=== PATIENT | female | born 1950 | race Caucasian/White ===

== ENCOUNTER 2016-08-18 20:04 | Emergency (ER) | payer MEDICARE, OTHER ==
[~2016-08-18] VITALS: Ht 162.6 cm; Wt 108.4 kg
[2016-08-18] MEDS ORDERED: ACEB200C PO (20:23)
[2016-08-18] MEDS ORDERED: INSU100V8 SQ (20:23)
[2016-08-18] MEDS ORDERED: DESV50TA PO (20:23)
[2016-08-18] MEDS ORDERED: FLUT1DIS3 IH (20:23)
[2016-08-18] MEDS ORDERED: LOSA100T6 PO (20:23)
[2016-08-18] MEDS ORDERED: SITA100T PO (20:23)
[2016-08-18] MEDS ORDERED: TRAM50TA PO (20:23)
[2016-08-18] MEDS ORDERED: ASPI-484 PO (20:23)
[2016-08-18] MEDS ORDERED: CYCL10TA2 PO (20:23)
[2016-08-18] MEDS ORDERED: LEVO88TA5 PO (20:23)
[2016-08-18] MEDS ORDERED: OMEP40CA6 PO (20:23)
[2016-08-18] MEDS ORDERED: GLIM4TAB2 PO (20:23)
[2016-08-18] MEDS ORDERED: TORADOL ONE (20:33)
[2016-08-18] MEDS ORDERED: TORADOL IM STA (20:34)
--- NOTE | 2016-08-18 20:41 | ER.PDOC ---
General Chief Complaint: Extremities Stated Complaint: KNEE PAIN Time seen by MD: 20:34 Source: patient Exam Limitations: no limitations History of Present Illness Initial Comments Left knee pain for 2 Months worse today. Patient had a normal X rays a few days ago at her PCP. She also had a negative venous Doppler in [place]. Severity: moderate Exacerbated By: walking movement Relieved By: rest Allergies: Coded Allergies: codeine (Verified Allergy, Unknown, 08/18/16) iodine (Verified Allergy, Unknown, 08/18/16) shellfish derived (Verified Allergy, Unknown, 08/18/16) Home Meds Reported Medications Insulin Glargine,Hum.rec.anlog (Lantus)100 Unit/1 Ml Vial30 Unit SQ A PRN HYPERGLYCEMIA 08/18/16 Fluticasone/Salmeterol (Advair 250-50 Diskus)1 Each Disk.w.dev1 Puff IH BID #3 INHALER Ref 3 08/18/16 Sitagliptin Phosphate (Januvia)100 Mg Tablet1 Tab PO DAILY #30 TAB Ref 5 08/18/16 Desvenlafaxine Succinate (Pristiq Er)50 Mg Tab.er.24h1 Tab PO DAILY #30 TAB Ref 5 08/18/16 Levothyroxine Sodium 88 Mcg Tablet1 Tab PO DAILY #30 TAB Ref 5 08/18/16 Aspirin (Aspir 81)81 Mg Tablet.dr1 Tab PO DAILY #30 TAB Ref 5 08/18/16 Tramadol Hcl 50 Mg Verikn02 Mg PO PRN PRN PAIN 08/18/16 Cyclobenzaprine Hcl (Flexeril)10 Mg Tablet1 Tab PO Q8 PRN MUSCLE SPASM #90 TAB 08/18/16 Glimepiride 4 Mg Tablet1 Tab PO BID #180 TAB Ref 1 08/18/16 Losartan Potassium 100 Mg Tablet1 Tab PO DAILY #30 TAB Ref 5 08/18/16 Acebutolol Hcl 200 Mg Kurjbye724 Mg PO BID 08/18/16 Omeprazole 40 Mg Capsule.dr1 Cap PO DAILY #30 CAP Ref 3 08/18/16 Past Medical History Medical History: cardiac problems, diabetes, high cholesterol, hypertension, thyroid disease Surgical History: appendectomy, hysterectomy, shoulder LMP (females 10-50): hysterectomy Social History Smoking: non-smoker Alcohol Use: none Drug Use: none Review of Systems Constitutional: no symptoms reported Respiratory: no symptoms reported Cardiovascular: no symptoms reported Gastrointestinal: no symptoms reported Genitourinary: no symptoms reported Musculoskeletal: see HPI All Other Systems: Reviewed and Negative Physical Exam General Appearance: Alert, No Apparent Distress Lower Extremity: nml inspection, no pedal edema, tenderness (left knee. No swelling, deformity or erytherma) Joint Exam: joints nml Vascular: no vascular compromise, pulses full/equal Neuro/Psych: sensation nml, motor nml, oriented x3, CN's nml as tested, mood/ affect nml Skin: color nml, warm/dry, no rash Back/Neck: nml inspection EENT: eyes inspection nml, ENT inspection nml, pharynx nml Respiratory: no resp distress, breath sounds nml CVS: reg rate & rhythm, heart sounds nml Abdomen: non-tender, no organomegaly, no bruit/mass Consult/PCP Time Consult/PCP Called: 20:41 Consult/PCP: Dr. Link Reason/Comments: Left knee pain, F/U tomorrow in office Departure Time of Disposition: 20:42 Disposition: 01 HOME, SELF-CARE Impression: Primary Impression: Knee pain, left Qualified Code: M25.562 - Pain in left knee Condition: Stable Referrals: EDDIE TALLEY PA-C (PCP) PRIMARY CARE PROVIDER Additional Instructions: Continue home medications F/U with Dr. Link tomorrow at 2pm MARIO CANTOR MD Aug 18, 2016 20:41
[2016-08-18 20:54] VITALS: BP 142/89
== END 2016-08-18 20:50 | disposition home or self-care (01) ==
LOC: ER 20:04
DX: M25.562 Pain in left knee (principal); E07.9 Disorder of thyroid, unspecified; E11.9 Type 2 diabetes mellitus without complications; E78.00 Pure hypercholesterolemia, unspecified; I10 Essential (primary) hypertension; Z79.4 Long term (current) use of insulin; Z79.82 Long term (current) use of aspirin; Z88.5 Allergy status to narcotic agent; Z91.013 Allergy to seafood; Z91.048 Other nonmedicinal substance allergy status; Z79.899 Other long term (current) drug therapy
CPT/HCPCS: 96372; 99283; J1885

== ENCOUNTER 2016-09-10 01:11 | Day surgery (SDC) | payer MEDICARE, OTHER ==
[2016-09-09 14:45] VITALS: BP 129/51
[2016-09-09 15:52] LABS: BASOPHIL % 0.3 % (0.0-0.2); EOSINOPHIL # 0.5 10^3/uL (0.0-0.2); EOSINOPHIL % 4.3 % (0.0-5.0); HEMATOCRIT 39.3 % (36.0-46.0); LYMPHOCYTES # 3.7 10^3/uL (1.0-4.8); MEAN CELL HGB CONCENTRATION 33.1 g/dL (33-37); MEAN CORP VOLUME 90.6 fL (78-100); MEAN PLATELET VOLUME 10.1 fL (7.8-11.0); MONOCYTES # 0.9 10^3/uL (0.3-0.8); MONOCYTES % 7.1 % (5.0-12.0); NEUTROPHIL # 7.1 10^3/uL (1.8-7.7); RED CELL DISTRIBUTION WIDTH 13.5 % (11.5-14.5); WHITE BLOOD CELL 12.3 10^3/uL (4.5-11.0)
[2016-09-09 16:06] LABS: CALCIUM 9.3 mg/dL (8.4-10.5); CARBON DIOXIDE 23.8 mmol/L (20.0-32)
[~2016-09-10] VITALS: Ht 165.1 cm; Wt 110.2 kg
[2016-09-10] VITALS (13 sets, daily range): BP systolic 123–151; BP diastolic 60–82
[~2016-09-10 01:11] MED LIST: ACEB200C PO; ASPI-484 PO; CYAN10002 IJ; CYCL10TA2 PO; DESV50TA PO; FENO150C PO; FLUT1DIS3 IH; GLIM4TAB2 PO; INSU100I13 SQ; INSU100V8 SQ; LEVO88TA5 PO; LOSA100T6 PO; LOSA50TA6 PO; OMEG-117 PO; OMEP40CA6 PO; SITA100T PO; TRAM50TA PO
[2016-09-10] MEDS ORDERED: LACTATED RINGERS 1,000 ML ONE (05:27)
[2016-09-10] MEDS ORDERED: NS IV SCH (06:00)
[2016-09-10] MEDS ORDERED: ROBINUL ONE (06:58)
[2016-09-10] MEDS ORDERED: VERSED ONE (06:58)
[2016-09-10] MEDS ORDERED: XYLOCAINE ONE (06:58)
[2016-09-10] MEDS ORDERED: SUBLIMAZE ONE ×2 (06:59→09:22)
[2016-09-10] MEDS ORDERED: DIPRIVAN IV ONE (06:59)
[2016-09-10] MEDS ORDERED: TORADOL ONE (06:59)
[2016-09-10] MEDS ORDERED: ZOFRAN ONE (07:00)
[2016-09-10] MEDS ORDERED: SENSORCAINE-EPI 0.25%-0.0005 ONE (07:05)
[2016-09-10] MEDS ORDERED: SODIUM CHLORIDE IR ONE ×2 (07:05)
[2016-09-10] MEDS ORDERED: NS 1000ML 1,000 ML ONE (08:53)
[2016-09-10] MEDS ORDERED: TRAM-28 PO (09:20)
[2016-09-10] MEDS ORDERED: SUBLIMAZE IV STA (09:24)
[2016-09-10] MEDS ORDERED: ULTRAM PO ONE ×2 (09:45→10:00)
[2016-09-10] MEDS ORDERED: ULTRAM ONE (09:48)
--- NOTE | 2016-09-10 13:32 | OPH ---
DATE OF SURGERY: 09/10/2016 PREOPERATIVE DIAGNOSIS: Medial meniscal tear of the left knee. POSTOPERATIVE DIAGNOSES: 1. Medial and lateral meniscal tears of the left knee. 2. Plica syndrome, left knee. OPERATIVE PROCEDURES: 1. Arthroscopy of the left knee with partial medial and lateral meniscectomy. 2. Partial synovectomy, left knee. SURGEON: Salvador Link MD ANESTHESIA: LMA. TOURNIQUET TIME: 19 minutes at 300 mmHg. DRAINS: None. BLOOD LOSS: 20 mL. DESCRIPTION OF INDICATIONS: The patient is a 66-year-old female that has had a 3-month history of pain and popping about the left knee. She has a lot of pain with weightbearing, mainly medially. She has to use a walker because of the pain. The patient has taken Advil as well as Aleve and Tylenol for the pain without relief. She had a cortisone injection, which did not relieve her symptoms. The patient's exam showed that the left knee had full range of motion. She had a lot of tenderness about the posterior medial aspect of her joint line. The patient did have some popping and pain with Bee and Artur maneuver. The plain x-rays were negative. The MRI scan showed a tear of the posterior horn of the medial meniscus. She was given conservative versus surgical options and she wanted to proceed with arthroscopy and meniscectomy due to the degree of pain. DESCRIPTION OF PROCEDURE: The patient was placed on the operating table in the supine position. A general endotracheal anesthetic was induced without difficulty. The left thigh was well padded and a tourniquet was applied. The left lower extremity was then sterilely prepped and draped. The patient then had the arthroscopy portals made superolateral, anterolateral and anteromedial. The arthroscope was placed in the suprapatellar pouch. She had some minor grade 2 chondromalacia about the patella and the corresponding femoral sulcus. There was no exposed subchondral bone. She had a fairly significant plica noted about the anteromedial portion. Later in the case, a shaver was introduced and the plica was resected. The patient also had a partial synovectomy done in the suprapatellar pouch for fairly significant inflammatory synovitis. The medial and lateral gutters were viewed. The lateral gutter was normal. There were no loose bodies, no osteophytes. There were minimal small osteophytes about the distal end of the medial femoral condyle. The patient then had the medial compartment entered. There was some grade 3 chondromalacia about the medial femoral condyle that was shaved of any loose articular cartilage. The medial meniscus had a radial and complex tear of the posterior horn. Using upbiters and a shaver, a partial medial meniscectomy was performed. The intercondylar notch was viewed. Her anterior and posterior cruciate ligaments were normal. The knee was then placed in the [id number] position. The lateral compartment was viewed. The lateral articular cartilage was normal. Her lateral meniscus had some tears in the central portion that were excised with an upbiter and a shaver. The arthroscopic equipment was then removed from the knee. The tourniquet was released. The patient had the portal tracts closed with 3-0 Ethilon in an interrupted manner. A compressive dressing was applied. The patient was extubated in the operating room and sent to recovery in stable condition. Salvador Link MD DR: WILFRID/nikolai JOB# [id number]
== END 2016-09-10 10:39 | disposition home or self-care (01) | DRG 563 ==
LOC: SDC 01:11
PROVIDERS: ATTEND Orthopaedic Surgery
DX: S83.242A Other tear of medial meniscus, current injury, left knee, initial encounter (principal); M67.52 Plica syndrome, left knee; E11.9 Type 2 diabetes mellitus without complications; E78.00 Pure hypercholesterolemia, unspecified; X58.XXXA Exposure to other specified factors, initial encounter; Y93.89 Activity, other specified; Y92.89 Other specified places as the place of occurrence of the external cause; Y99.8 Other external cause status; Z79.4 Long term (current) use of insulin; Z79.82 Long term (current) use of aspirin
CPT/HCPCS: 29875; 29880; 36415; 80048; 82948; 85025; 93005; J1885; J2250; J2405; J3010 ×2; J3490 ×2; J7030 ×2; J7120

== ENCOUNTER → 2017-05-05 | Outpatient (CLI) | payer MEDICARE, OTHER ==
[~2017-05-05] MED LIST changes: +TRAM-47 PO
== END | disposition home or self-care (01) ==
LOC: CT 10:28
PROVIDERS: ATTEND Orthopaedic Surgery
DX: M17.12 Unilateral primary osteoarthritis, left knee (principal)
CPT/HCPCS: 73700

== ENCOUNTER 2017-05-31 08:00 | Inpatient (IN) | payer MEDICARE, OTHER ==
[2017-05-26 11:41] VITALS: BP 135/66
[~2017-05-31] VITALS: Ht 162.6 cm; Wt 114.4 kg
[~2017-05-31 08:00] MED LIST changes: +ATOR40TA PO; +CLOB15CR TP; +FEXO180T72 PO; +INSU100C SQ; +LOSA1TAB22 PO; +NS 1000ML 1,000 ML IV SCH
[2017-07-12] VITALS (22 sets, daily range): BP systolic 122–148; BP diastolic 58–83
[2017-07-12] MEDS ORDERED: NS 250ML 250 ML IV ONE ×2 (05:47→13:36)
[2017-07-12] MEDS ORDERED: VANCOMYCIN HCL 2 GM ONE (05:47)
[2017-07-12] MEDS ORDERED: NEURONTIN PO SCH (06:00)
[2017-07-12] MEDS ORDERED: TYLENOL PO ONE ×2 (06:00→10:58)
[2017-07-12] MEDS ORDERED: CELEBREX PO ONE ×2 (06:00→21:00)
[2017-07-12] MEDS ORDERED: TRANEXAMIC ACID IV ONE (07:00)
[2017-07-12] MEDS: LACTATED RINGERS 1,000 ML IV SCH (10:50)
[2017-07-12] MEDS ORDERED: CELEBREX ONE (10:57)
[2017-07-12] MEDS ORDERED: NEURONTIN ONE (10:58)
[2017-07-12] MEDS ORDERED: VANCOMYCIN IV ONE (11:00)
[2017-07-12] MEDS ORDERED: NS IV ONE (11:00)
[2017-07-12] MEDS ORDERED: BACTROBAN NASAL NS ONE (11:00)
[2017-07-12] MEDS ORDERED: DECADRON ONE (11:39)
[2017-07-12] MEDS ORDERED: TORADOL ONE (11:39)
[2017-07-12] MEDS ORDERED: ZEMURON IV ONE (11:39)
[2017-07-12] MEDS ORDERED: ZOFRAN ONE (11:39)
[2017-07-12] MEDS ORDERED: VERSED ONE (11:39)
[2017-07-12] MEDS ORDERED: NEOSTIGMINE ONE (11:39)
[2017-07-12] MEDS ORDERED: SUBLIMAZE ONE ×2 (11:40→16:49)
[2017-07-12] MEDS ORDERED: SENSORCAINE-MPF 0.5% VIAL ONE (11:40)
[2017-07-12] MEDS ORDERED: DIPRIVAN IV ONE (11:40)
[2017-07-12] MEDS ORDERED: SENSORCAINE-MPF 0.25% VIAL ONE (11:41)
[2017-07-12] MEDS ORDERED: LIDOCAINE 2% VIAL ONE (11:41)
[2017-07-12] MEDS ORDERED: QUELICIN ONE (13:04)
[2017-07-12] MEDS: TYLENOL PO SCH (13:30)
[2017-07-12] MEDS ORDERED: NS 3000ML IRR IR ONE (13:36)
[2017-07-12] MEDS ORDERED: NS 100ML 100 ML IV ONE (13:36)
[2017-07-12] MEDS ORDERED: SODIUM CHLORIDE IR ONE (13:36)
[2017-07-12] MEDS: SUBLIMAZE IV PRN ×5 (16:53→17:17)
[2017-07-12] MEDS ORDERED: BACTROBAN NASAL NS PRN (17:00)
[2017-07-12] MEDS ORDERED: LACTATED RINGERS 1,000 ML IV SCH (17:00)
[2017-07-12] MEDS ORDERED: VENTOLIN IH PRN (17:00)
[2017-07-12] MEDS ORDERED: CEPACOL SORE THROAT LOZENGE MM PRN (17:00)
[2017-07-12] MEDS ORDERED: PHENERGAN IV PRN (17:00)
[2017-07-12] MEDS ORDERED: BENADRYL IV PRN (17:00)
[2017-07-12] MEDS ORDERED: ZOFRAN IV PRN (17:00)
[2017-07-12] MEDS ORDERED: LACTATED RINGERS 2,000 ML ONE (17:10)
--- NOTE | 2017-07-12 17:16 | PRM.PN ---
Subjective Subjective Date: Jul 12, 2017 Time: 17:15 Subjective In RR Awake and alert VSS NVM+ Stable Patient History: Alzheimer's disease 32 MOTHER, , Age:83 Chronic obstructive pulmonary disease G8 SISTER, , Age:69 Congestive heart failure 32 MOTHER, , Age:83 G8 SISTER, , Age:69 G8 SISTER, , Age:50 Diabetes mellitus 32 MOTHER, , Age:83 G8 BROTHER G8 BROTHER, , Age:65 G8 SISTER, , Age:69 G8 SISTER, , Age:50 FH: breast cancer 32 MOTHER, , Age:83 FH: seizures 19 CHILD Heart valve insufficiency G8 BROTHER Hypertension 32 MOTHER, , Age:83 G8 BROTHER G8 BROTHER, , Age:65 G8 SISTER, , Age:69 G8 SISTER, , Age:50 Kidney stone 19 CHILD No known health problems 33 FATHER, , Age:36 19 CHILD Parkinson's disease 32 MOTHER, , Age:83 VTE VTE Risk Total Score: >5 VTE Risk Score VTE Risk: Score 0-1 = Low Risk (Aggressive mobilization; early ambulation; no VTE prophylaxis required) Score 2: Moderate Risk (Intermittent/Pneumatic Compression Device OR Lovenox/Heparin/Coumadin) Score 3-4: High Risk (Intermittent/Pneumatic Compression Device AND Lovenox/Heparin/Coumadin) Score > or =5: Highest Risk (Intermittent/Pneumatic Compression Device AND Lovenox/Heparin/Coumadin) Review of Systems Allergies: Coded Allergies: shellfish derived (Verified Allergy, Severe, ELEVATED BP, HYPERVENTALATION , 05/26/17) codeine (Verified Allergy, Unknown, ITCHING, 05/26/17) Scheduled Acebutolol Hcl (Acebutolol Hcl), 200 MG PO BID, (Reported) Aspirin (Aspir 81), 1 TAB PO DAILY, (Reported) Atorvastatin 40MG (Lipitor 40MG), 1 TAB PO DAILY, (Reported) Cyanocobalamin (Vitamin B-12) (Cyanocobalamin Injection), 1,000 MCG IJ EVERY 14 DAYS, (Reported) Desvenlafaxine Succinate (Pristiq Er), 1 TAB PO DAILY, (Reported) Fenofibrate (Lipofen), 150 MG PO HS, (Reported) Fluticasone/Salmeterol (Advair 250-50 Diskus), 1 PUFF IH BID, (Reported) Glimepiride (Glimepiride), 1 TAB PO BID, (Reported) Insulin Glargine,Hum.rec.anlog (Lantus), 40 UNIT SQ ACB, (Reported) Insulin Glargine,Hum.rec.anlog (Lantus Solostar), 45 UNITS SQ HS, (Reported) Insulin Lispro (Humalog), 5 UNIT SQ TIDM, (Reported) Insulin Lispro (Humalog), Unknown Dose SQ TIDM, (Reported) Levothyroxine Sodium (Levothyroxine Sodium), 1 TAB PO DAILY, (Reported) Losartan/Hydrochlorothiazide (Losartan-Hctz 100-25 Mg Tab), 1 TAB PO DAILY, ( Reported) Foster-3S/Dha/Epa/Fish Oil (Fish Oil 1,200 mg Softgel), 2 EACH PO BID, (Reported) Omeprazole (Omeprazole), 1 CAP PO BID, (Reported) Scheduled PRN Clobetasol Propionate (Clobetasol Propionate), 1 APPLIC TP BID PRN for ITCHING, (Reported) Fexofenadine Hcl (Martita Allergy), 1 TAB PO DAILY PRN for ALLERGIES, (Reported) Objective Vitals and I/O Vital Sign - Last 24 Hours 07/12/17 07/12/17 07/12/17 07/12/17 10:43 10:43 12:30 12:35 Temp 98.0 Pulse 74 72 70 Resp 20 20 20 B/P (MAP) 148/78 (101) 141/60 (87) 134/80 (98) Pulse Ox 94 94 93 O2 Delivery Room Air Room Air Room Air Room Air 07/12/17 07/12/17 07/12/17 07/12/17 12:40 12:45 12:50 16:25 Pulse 73 70 70 Resp 20 20 20 B/P (MAP) 144/83 (103) 138/78 (98) 125/67 (86) Pulse Ox 95 92 91 O2 Delivery Room Air Room Air Room Air O2 Flow Rate 15 07/12/17 07/12/17 07/12/17 07/12/17 16:25 16:30 16:35 16:40 Temp 98.1 98.3 Pulse 84 83 85 85 Resp 19 19 19 19 B/P (MAP) 136/79 (98) 134/79 (97) 126/76 (93) 130/75 (93) Pulse Ox 97 93 94 97 O2 Delivery Venturi Mask Venturi Mask Venturi Mask Venturi Mask 07/12/17 07/12/17 07/12/17 07/12/17 16:45 16:50 16:55 17:00 Temp 97.5 Pulse 87 90 86 85 Resp 19 19 19 19 B/P (MAP) 136/77 (96) 129/69 (89) 137/58 (84) 129/73 (91) Pulse Ox 97 99 99 99 O2 Delivery Venturi Mask Venturi Mask Venturi Mask Venturi Mask 07/12/17 07/12/17 17:05 17:10 Temp 97.5 Pulse 90 92 Resp 19 19 B/P (MAP) 134/66 (88) 131/58 (82) Pulse Ox 99 99 O2 Delivery Venturi Mask Venturi Mask Medication Reconciliation Scheduled Acebutolol Hcl (Acebutolol Hcl), 200 MG PO BID, (Reported) Aspirin (Aspir 81), 1 TAB PO DAILY, (Reported) Atorvastatin 40MG (Lipitor 40MG), 1 TAB PO DAILY, (Reported) Cyanocobalamin (Vitamin B-12) (Cyanocobalamin Injection), 1,000 MCG IJ EVERY 14 DAYS, (Reported) Desvenlafaxine Succinate (Pristiq Er), 1 TAB PO DAILY, (Reported) Fenofibrate (Lipofen), 150 MG PO HS, (Reported) Fluticasone/Salmeterol (Advair 250-50 Diskus), 1 PUFF IH BID, (Reported) Glimepiride (Glimepiride), 1 TAB PO BID, (Reported) Insulin Glargine,Hum.rec.anlog (Lantus), 40 UNIT SQ ACB, (Reported) Insulin Glargine,Hum.rec.anlog (Lantus Solostar), 45 UNITS SQ HS, (Reported) Insulin Lispro (Humalog), 5 UNIT SQ TIDM, (Reported) Insulin Lispro (Humalog), Unknown Dose SQ TIDM, (Reported) Levothyroxine Sodium (Levothyroxine Sodium), 1 TAB PO DAILY, (Reported) Losartan/Hydrochlorothiazide (Losartan-Hctz 100-25 Mg Tab), 1 TAB PO DAILY, ( Reported) Foster-3S/Dha/Epa/Fish Oil (Fish Oil 1,200 mg Softgel), 2 EACH PO BID, (Reported) Omeprazole (Omeprazole), 1 CAP PO BID, (Reported) Scheduled PRN Clobetasol Propionate (Clobetasol Propionate), 1 APPLIC TP BID PRN for ITCHING, (Reported) Fexofenadine Hcl (Martita Allergy), 1 TAB PO DAILY PRN for ALLERGIES, (Reported) Course Blood Pressure Systolic: 131 Blood Pressure Diastolic: 58 Blood Pressure Mean: 82 Assessment/Plan Assessment/Plan Patient History: Alzheimer's disease 32 MOTHER, , Age:83 Chronic obstructive pulmonary disease G8 SISTER, , Age:69 Congestive heart failure 32 MOTHER, , Age:83 G8 SISTER, , Age:69 G8 SISTER, , Age:50 Diabetes mellitus 32 MOTHER, , Age:83 G8 BROTHER G8 BROTHER, , Age:65 G8 SISTER, , Age:69 G8 SISTER, , Age:50 FH: breast cancer 32 MOTHER, , Age:83 FH: seizures 19 CHILD Heart valve insufficiency G8 BROTHER Hypertension 32 MOTHER, , Age:83 G8 BROTHER G8 BROTHER, , Age:65 G8 SISTER, , Age:69 G8 SISTER, , Age:50 Kidney stone 19 CHILD No known health problems 33 FATHER, , Age:36 19 CHILD Parkinson's disease 32 MOTHER, , Age:83 IBAN BANEGAS MD Jul 12, 2017 17:16
--- NOTE | 2017-07-12 17:40 | NUR ---
ARRIVAL PT ARRIVED FROM OR VIA BED WITH OR STAFF, RECEIVED REPORT FROM ALEKSANDR HODGE AND ASSUMED CARE OF PT. SPECIAL VITALS STARTED BED IN LOW POSITION, WHEELS LOCKED, CALL LIGHT IN REACH. ORIENTED PT TO ROOM CALL LIGHT AND BATHROOM. WILL CONTINUE TO MONITOR
[2017-07-12] MEDS: MORPHINE SULFATE IV PRN (18:13)
--- NOTE | 2017-07-12 18:28 | HPH ---
ADMIT DATE: 07/12/2017 CHIEF COMPLAINT: Painful left knee. HISTORY OF PRESENT ILLNESS: The patient is a 67-year-old female with a 1-year history of pain about the left knee secondary to osteoarthritis. Her pain is getting progressively worse. The patient complained of night pain as well as pain with just household ambulation. She is unable to do her daily activities because of pain. She has had a trial of anti-inflammatories including Motrin as well as Aleve. She takes tramadol for the pain now. She has also had several cortisone injections as well as a round of Orthovisc injections, neither of which helped her significantly. She complains of giving way about the knee as well as medial-sided knee pain. She had arthroscopy in 08/2016 with debridement of the medial femoral condyle as well as the patellofemoral joint. At that time, she was noted to have diffuse loss of articular cartilage about the medial compartment as well as the patellofemoral compartment. PAST MEDICAL HISTORY: Medical problems include hypertension, diabetes, sleep apnea, rheumatoid arthritis, gout, GERD, obesity, shortness of breath. PREVIOUS SURGICAL PROCEDURES: Include left knee arthroscopy, hysterectomy, cataract removal, rotator cuff repair, cholecystectomy and appendectomy. MEDICATIONS: Includes Lantus, Humalog, omeprazole, acebutolol, glimepiride, aspirin, losartan and tramadol. ALLERGIES: THE PATIENT IS ALLERGIC TO CODEINE WELL SHELLFISH. SOCIAL HISTORY: She lives with her family, does not smoke or drink. FAMILY HISTORY: Positive for hypertension, congestive heart failure, cancer as well as myocardial infarction. REVIEW OF SYSTEMS: Negative for chest pain, nausea, vomiting, melena, hematochezia, dysuria, hematuria, fever, chills or weight loss. Positive for occasional shortness of breath on exertion. PHYSICAL EXAMINATION: GENERAL: Reveals a 5 feet 4 inches, 251 pounds female in no acute distress. HEENT: Within normal limits. CHEST: Clear to auscultation. HEART: Regular rate and rhythm without murmur. ABDOMEN: Soft and nontender, good bowel sounds. EXTREMITIES: The patient's left knee has a 1+ effusion. She has full extension with 120 degrees of flexion. There is good medial and lateral stability. Tone and posterior drawer exams are normal. The patient has normal internal and external rotation of the left hip with no pain. NEUROLOGIC: She is awake and alert. She is oriented x 3. Cranial nerves 2-12 are grossly intact. She has 5/5 strength in all muscle groups of her upper extremities as well as both of her lower extremities, normal for her age, bilaterally symmetric. IMAGING STUDIES: The x-rays show that she has medial compartment narrowing as well as patellofemoral narrowing. ASSESSMENT: 1. Osteoarthritis, left knee. 2. Rheumatoid arthritis, left knee. PLAN: The patient is being admitted for left total knee arthroplasty. The risks and hazards of the procedure have been discussed with the patient. She understands the risk involved and wants to proceed as planned. Salvador Link MD DR: WILFRID/nikolai JOB# [id number]
--- NOTE | 2017-07-12 19:11 | NUR ---
REPORT REPORT GIVEN TO O/C SHIFT
[2017-07-12 19:52] LABS: HEMOGLOBIN 11.8 g/dL (12.0-15.0); MEAN CELL HGB 29.3 pg (26-34); MEAN CELL HGB CONCENTRATION 31.1 g/dL (33-37); MEAN PLATELET VOLUME 9.6 fL (7.8-11.0); RED CELL DISTRIBUTION WIDTH 13.8 % (11.5-14.5)
--- NOTE | 2017-07-12 19:59 | DIREP ---
PROCEDURE:XRAY KNEE 1-2 VWS-LT COMPARISON:None. INDICATIONS:Postop FINDINGS: BONES:No fracture is seen. JOINTS:Post surgical changes are seen with a total left knee arthroplasty in good position and alignment. SOFT TISSUES:Post surgical changes are seen in the anterior soft tissues. OTHER:No additional findings. CONCLUSION:Post surgical changes are seen with a total left knee arthroplasty in good position. Dictated by: José Macias M.D. on 07/12/2017 at 07:57 PM
[2017-07-12] MEDS: ULTRAM PO SCH (20:00)
[2017-07-12] MEDS: ULTRAM PO PRN (20:51)
[2017-07-12] MEDS: BACTROBAN NASAL NS SCH (20:52)
[2017-07-12] MEDS ORDERED: VANCOMYCIN HCL IV SCH (21:00)
--- NOTE | 2017-07-12 21:48 | OPH ---
DATE OF SURGERY: 07/12/2017 PREOPERATIVE DIAGNOSIS: Osteoarthritis as well as rheumatoid arthritis of the left knee. POSTOPERATIVE DIAGNOSIS: Osteoarthritis as well as rheumatoid arthritis of the left knee. OPERATIVE PROCEDURE: Left total knee arthroplasty using Medacta Sphere knee, size 3 femur, a size 3 tibia, a 10 mm insert. All components were cemented. SURGEON: Salvador Link MD ANESTHESIA: LMA. TOURNIQUET TIME: 73 minutes at 300 mmHg. DRAINS: None. DESCRIPTION OF INDICATIONS: The patient is a 67-year-old female who has a long history of pain about the left knee. We have been seeing her for at least a year in our office. She has had a trial of home physical therapy as well as some bracing. She has GERD and is very limited in her ability to take anti-inflammatories. She has had several cortisone injections with only temporary relief. She has also had a round of Orthovisc injections without much relief. She has pain with just household ambulation as well as night pain. She also complained of giving way about the knee. The patient had previous arthroscopy in August 2016, where she underwent debridement of the knee. It did not help her in the long run. The patient's x-rays show medial narrowing as well as patellofemoral narrowing with osteophytes. Because of pain that limited her daily activities, the patient was brought to the operating room for left total knee arthroplasty. DESCRIPTION OF PROCEDURE: This patient was placed on the operating table in the supine position. LMA anesthetic was induced without difficulty. The patient had the well-padded tourniquet placed around the left thigh. Left lower extremity was then sterilely prepped and draped. The patient had the leg exsanguinated with an Esmarch and the tourniquet was inflated to 300 mmHg. The leg was then flexed to 90 degrees. Anterior incision was made about the knee. Incision was taken through the skin and the subcutaneous tissues. The patient had medial and lateral meniscectomies performed. The anterior and posterior cruciate ligaments were excised. The patient then had the capsule and MCL released around the posterior medial corner. The patient then had the Rerecipe femoral cutting guide placed about the distal femur. It was held into position with multiple pins. The distal femoral cut was then made with the power saw. The patient had the #2 jig size 3, placed about the distal femur and held into position with multiple screws and multiple pins. The anterior and posterior femoral cuts as well as the chamfer cuts were then made. The patient had the tibia subluxed anteriorly with a bent knee retractor. The tibial cutting guide was put into position and held there with multiple pins. Tibial cut was then made with the power saw. The patient had the size 3 trial placed on the tibial component. The patient had the trial component held into position with multiple pins. The central drill hole was made and then the cruciate punch was used to stabilize the tibial component. The patient then had the trial reduction done with a 3 tibia, 3 femur, a 10 mm insert. The knee went out into full extension. She had 120 degrees of flexion, excellent medial and lateral stability throughout the range of motion. There was excellent tracking of the patella, so we elected just to trim the osteophytes around the peripheral edge of the patella and to cauterize circumferentially around the outside edge of the patella. The patient then had the final medial and lateral femoral drill holes made. The femoral sulcus cut was made. The trial components were then removed from the knee. The bone ends were copiously irrigated and then the bone ends were dried. A size 3 tibial component was cemented into position. The excess cement was removed with curettes. The 10 mm insert was then impacted into position and secured with an anterior screw. The size 3 femoral component was likewise cemented into position. Once all the excess cement was removed and the cement had dried, then, the tourniquet was released. The bleeding was controlled with the Aquamantys device. The capsule was closed with a #2 PDS in interrupted nefscl-ua-[id number] manner. The joint was injected with a gram of tranexamic acid and 90 mL of saline. The subcutaneous was then closed with a barbed 2-0 Monocryl in a running manner. The skin was closed with srinivasan. A large Aquacel dressing was applied. It was reinforced with 4 x 4s, ABD pads, cast padding and an Peter wrap. The patient was extubated in the operating room, sent to recovery in stable condition. Salvador Link MD DR: WILFRID/nikolai JOB# [id number]
[2017-07-13] MEDS ORDERED: VANCOMYCIN HCL 2 GM ONE (00:06)
[2017-07-13] MEDS ORDERED: NS 500ML 500 ML IV ONE (00:07)
[2017-07-13] MEDS: VANCOMYCIN HCL 2 GM in NS 500ML 500 ML IV SCH ×2 (00:12→11:10)
[2017-07-13] MEDS: TYLENOL PO SCH ×5 (00:13→20:36)
[2017-07-13] MEDS: ULTRAM PO PRN ×6 (00:13→20:36)
[2017-07-13 00:16] VITALS: BP 133/78
[2017-07-13] MEDS: ULTRAM PO SCH ×6 (04:00→20:00)
[2017-07-13 04:30] VITALS: BP 113/60
[2017-07-13 05:08] LABS: HEMOGLOBIN 11.7 g/dL (12.0-15.0); MEAN CELL HGB 29.2 pg (26-34); MEAN CELL HGB CONCENTRATION 31.3 g/dL (33-37); MEAN CORP VOLUME 93.3 fL (78-100); MEAN PLATELET VOLUME 9.7 fL (7.8-11.0); RED CELL DISTRIBUTION WIDTH 13.4 % (11.5-14.5); WHITE BLOOD CELL 16.4 10^3/uL (4.5-11.0)
--- NOTE | 2017-07-13 07:00 | NUR ---
REPORT RECEIVED REPORT, ASSUMED CARE OF PT
[2017-07-13 07:13] VITALS: BP 131/72
[2017-07-13] MEDS: XARELTO PO SCH (08:43)
[2017-07-13] MEDS: PEPCID PO SCH (08:44)
[2017-07-13] MEDS: COLACE PO SCH (08:44)
[2017-07-13] MEDS ORDERED: DEXTROSE 50%-WATER SYRINGE IV PRN (09:30)
--- NOTE | 2017-07-13 09:40 | NUR ---
Post-op day 1 follow up post left femoral and iPACK block. Pt v/s stable. Pt has been up walking with PT. PT states pt has some mild residual quad weakness which they anticipate will darnell within a couple hours. Pt block site is [facility]. Pt states block began to wear off around 0330 this am. block lasted approx 15 hours. Pt states no questions or concerns.
[2017-07-13] MEDS: LANTUS SQ SCH (09:42)
[2017-07-13] MEDS: HUMALOG SQ PRN ×3 (09:44→17:14)
[2017-07-13] MEDS: LIPITOR PO SCH (09:46)
[2017-07-13] MEDS: BACTROBAN NASAL NS SCH ×2 (09:47→20:37)
[2017-07-13] MEDS: SYNTHROID PO SCH (09:47)
[2017-07-13] MEDS ORDERED: PROTONIX PO ONE (10:06)
[2017-07-13] MEDS: PROTONIX PO SCH (10:12)
--- NOTE | 2017-07-13 10:15 | NUR ---
DISCHARGE PLAN CM VISITED WITH PT REGARDING DISCHARGE PLAN AND NEED. LIVES AT HOME WITH . INDEPENDENT. HAS WALKER. PT REQUESTED BEDSIDE COMMODE AND SHOWER CHAIR. ORDER SENT TO [employer]. [facility] AND BEDSIDE COMMODE TOMORROW. PT AWARE OF COST. PT STATED, "I WILL JUST HAVE MY LEAVE ME A BLANK CHECK." PT REQUESTED PHYSICAL THERAPY TO BE DONE AT [facility]. HAIR REYES PT STATED, "I WILL FILL OUT AN ORDER AND TAKE IT TO MED/SURG FOR DR. BANEGAS TO SIGN. THEN I WILL CALL YOU BACK WITH A TIME AND DATE OF FIRST APPOINTMENT." DISCHARGE GOAL IS TO DISCHARGE HOME WITH WITH PHYSICAL THERAPY TO BE DONE AT [facility] AND TO USE PT'S OWN WALKER. WILL CONTINUE TO FOLLOW DISCHARGE NEEDS.
[2017-07-13] MEDS: LACTATED RINGERS 1,000 ML IV SCH (11:00)
--- NOTE | 2017-07-13 11:16 | PRM.PN ---
Subjective Subjective Date: Jul 13, 2017 Time: 11:15 Subjective Awake and alert Pain ok thru the night VSS HGB 11.8 postop anemia expected NVM+ Start PT Patient History: Alzheimer's disease 32 MOTHER, , Age:83 Chronic obstructive pulmonary disease G8 SISTER, , Age:69 Congestive heart failure 32 MOTHER, , Age:83 G8 SISTER, , Age:69 G8 SISTER, , Age:50 Diabetes mellitus 32 MOTHER, , Age:83 G8 BROTHER G8 BROTHER, , Age:65 G8 SISTER, , Age:69 G8 SISTER, , Age:50 FH: breast cancer 32 MOTHER, , Age:83 FH: seizures 19 CHILD Heart valve insufficiency G8 BROTHER Hypertension 32 MOTHER, , Age:83 G8 BROTHER G8 BROTHER, , Age:65 G8 SISTER, , Age:69 G8 SISTER, , Age:50 Kidney stone 19 CHILD No known health problems 33 FATHER, , Age:36 19 CHILD Parkinson's disease 32 MOTHER, , Age:83 VTE VTE Risk Total Score: >5 VTE Risk Score VTE Risk: Score 0-1 = Low Risk (Aggressive mobilization; early ambulation; no VTE prophylaxis required) Score 2: Moderate Risk (Intermittent/Pneumatic Compression Device OR Lovenox/Heparin/Coumadin) Score 3-4: High Risk (Intermittent/Pneumatic Compression Device AND Lovenox/Heparin/Coumadin) Score > or =5: Highest Risk (Intermittent/Pneumatic Compression Device AND Lovenox/Heparin/Coumadin) Review of Systems Allergies: Coded Allergies: shellfish derived (Verified Allergy, Severe, ELEVATED BP, HYPERVENTALATION , 05/26/17) codeine (Verified Allergy, Unknown, ITCHING, 05/26/17) Scheduled Acebutolol Hcl (Acebutolol Hcl), 200 MG PO BID, (Reported) Aspirin (Aspir 81), 1 TAB PO DAILY, (Reported) Atorvastatin 40MG (Lipitor 40MG), 1 TAB PO DAILY, (Reported) Cyanocobalamin (Vitamin B-12) (Cyanocobalamin Injection), 1,000 MCG IJ EVERY 14 DAYS, (Reported) Desvenlafaxine Succinate (Pristiq Er), 1 TAB PO DAILY, (Reported) Fenofibrate (Lipofen), 150 MG PO HS, (Reported) Fluticasone/Salmeterol (Advair 250-50 Diskus), 1 PUFF IH BID, (Reported) Glimepiride (Glimepiride), 1 TAB PO BID, (Reported) Insulin Glargine,Hum.rec.anlog (Lantus), 40 UNIT SQ ACB, (Reported) Insulin Glargine,Hum.rec.anlog (Lantus Solostar), 45 UNITS SQ HS, (Reported) Insulin Lispro (Humalog), 5 UNIT SQ TIDM, (Reported) Insulin Lispro (Humalog), Unknown Dose SQ TIDM, (Reported) Levothyroxine Sodium (Levothyroxine Sodium), 1 TAB PO DAILY, (Reported) Losartan/Hydrochlorothiazide (Losartan-Hctz 100-25 Mg Tab), 1 TAB PO DAILY, ( Reported) [place]-3S/Dha/Epa/Fish Oil (Fish Oil 1,200 mg Softgel), 2 EACH PO BID, (Reported) Omeprazole (Omeprazole), 1 CAP PO BID, (Reported) Scheduled PRN Clobetasol Propionate (Clobetasol Propionate), 1 APPLIC TP BID PRN for ITCHING, (Reported) Fexofenadine Hcl (Martita Allergy), 1 TAB PO DAILY PRN for ALLERGIES, (Reported) Objective Vitals and I/O Vital Sign - Last 24 Hours 07/12/17 07/12/17 07/12/17 07/12/17 12:30 12:35 12:40 12:45 Pulse 72 70 73 70 Resp 20 20 20 20 B/P (MAP) 141/60 (87) 134/80 (98) 144/83 (103) 138/78 (98) Pulse Ox 94 93 95 92 O2 Delivery Room Air Room Air Room Air Room Air 07/12/17 07/12/17 07/12/17 07/12/17 12:50 16:25 16:25 16:30 Temp 98.1 Pulse 70 84 83 Resp 20 19 19 B/P (MAP) 125/67 (86) 136/79 (98) 134/79 (97) Pulse Ox 91 97 93 O2 Delivery Room Air Venturi Mask Venturi Mask O2 Flow Rate 15 07/12/17 07/12/17 07/12/17 07/12/17 16:35 16:40 16:45 16:50 Temp 98.3 Pulse 85 85 87 90 Resp 19 19 19 B/P (MAP) 126/76 (93) 130/75 (93) 136/77 (96) 129/69 (89) Pulse Ox 94 97 97 99 O2 Delivery Venturi Mask Venturi Mask Venturi Mask Venturi Mask 07/12/17 07/12/17 07/12/17 07/12/17 16:55 17:00 17:05 17:10 Temp 97.5 97.5 Pulse 86 85 90 92 Resp 19 B/P (MAP) 137/58 (84) 129/73 (91) 134/66 (88) 131/58 (82) Pulse Ox 99 99 99 99 O2 Delivery Venturi Mask Venturi Mask Venturi Mask Venturi Mask 07/12/17 07/12/17 07/12/17 07/12/17 17:15 17:20 17:25 17:30 Pulse 91 84 90 89 Resp 19 B/P (MAP) 140/76 (97) 127/63 (84) 127/74 (91) 122/76 (91) Pulse Ox 95 96 91 91 O2 Delivery Venturi Mask Venturi Mask Venturi Mask Nasal Cannula 07/12/17 07/12/17 07/12/17 07/12/17 17:40 18:19 18:21 18:24 Temp 97.6 Pulse 89 92 Resp 18 18 B/P (MAP) 122/67 (85) Pulse Ox 92 96 96 O2 Delivery Nasal Cannula Nasal Cannula Nasal Cannula O2 Flow Rate 2.00 3.00 FiO2 32 07/12/17 07/12/17 07/12/17 07/13/17 19:43 21:15 21:21 00:16 Temp 97.9 97.7 Pulse 95 95 89 Resp 18 18 B/P (MAP) 145/74 (97) 133/78 (96) Pulse Ox 95 95 93 O2 Delivery Nasal Canula Nasal Cannula Nasal Canula O2 Flow Rate 2.00 3.00 07/13/17 07/13/17 07/13/17 04:30 07:13 10:31 Temp 97.9 98.5 Pulse 95 90 90 Resp 18 18 B/P (MAP) 113/60 (77) 131/72 (91) Pulse Ox 95 95 95 O2 Delivery Nasal Canula Nasal Canula Room Air Intake and Output 3/12/18 3/12/18 3/13/18 15:00 23:00 07:00 Intake Total 100 ml 6350 ml 1000 ml Output Total 150 ml 2200 ml Balance 100 ml 6200 ml -1200 ml Medication Reconciliation Scheduled Acebutolol Hcl (Acebutolol Hcl), 200 MG PO BID, (Reported) Aspirin (Aspir 81), 1 TAB PO DAILY, (Reported) Atorvastatin 40MG (Lipitor 40MG), 1 TAB PO DAILY, (Reported) Cyanocobalamin (Vitamin B-12) (Cyanocobalamin Injection), 1,000 MCG IJ EVERY 14 DAYS, (Reported) Desvenlafaxine Succinate (Pristiq Er), 1 TAB PO DAILY, (Reported) Fenofibrate (Lipofen), 150 MG PO HS, (Reported) Fluticasone/Salmeterol (Advair 250-50 Diskus), 1 PUFF IH BID, (Reported) Glimepiride (Glimepiride), 1 TAB PO BID, (Reported) Insulin Glargine,Hum.rec.anlog (Lantus), 40 UNIT SQ ACB, (Reported) Insulin Glargine,Hum.rec.anlog (Lantus Solostar), 45 UNITS SQ HS, (Reported) Insulin Lispro (Humalog), 5 UNIT SQ TIDM, (Reported) Insulin Lispro (Humalog), Unknown Dose SQ TIDM, (Reported) Levothyroxine Sodium (Levothyroxine Sodium), 1 TAB PO DAILY, (Reported) Losartan/Hydrochlorothiazide (Losartan-Hctz 100-25 Mg Tab), 1 TAB PO DAILY, ( Reported) [place]-3S/Dha/Epa/Fish Oil (Fish Oil 1,200 mg Softgel), 2 EACH PO BID, (Reported) Omeprazole (Omeprazole), 1 CAP PO BID, (Reported) Scheduled PRN Clobetasol Propionate (Clobetasol Propionate), 1 APPLIC TP BID PRN for ITCHING, (Reported) Fexofenadine Hcl (Martita Allergy), 1 TAB PO DAILY PRN for ALLERGIES, (Reported) Course Blood Pressure Systolic: 131 Blood Pressure Diastolic: 72 Blood Pressure Mean: 91 Assessment/Plan Assessment/Plan Patient History: Alzheimer's disease 32 MOTHER, , Age:83 Chronic obstructive pulmonary disease G8 SISTER, , Age:69 Congestive heart failure 32 MOTHER, , Age:83 G8 SISTER, , Age:69 G8 SISTER, , Age:50 Diabetes mellitus 32 MOTHER, , Age:83 G8 BROTHER G8 BROTHER, , Age:65 G8 SISTER, , Age:69 G8 SISTER, , Age:50 FH: breast cancer 32 MOTHER, , Age:83 FH: seizures 19 CHILD Heart valve insufficiency G8 BROTHER Hypertension 32 MOTHER, , Age:83 G8 BROTHER G8 BROTHER, , Age:65 G8 SISTER, , Age:69 G8 SISTER, , Age:50 Kidney stone 19 CHILD No known health problems 33 FATHER, , Age:36 19 CHILD Parkinson's disease 32 MOTHER, , Age:83 IBAN BANEGAS MD Jul 13, 2017 11:16
[2017-07-13 11:34] VITALS: BP 125/72
--- NOTE | 2017-07-13 13:25 | NUR ---
AMBULATING PT UP AMBULATING IN [place] ASSISTED BY PHYSICAL THERAPY, NO S/S OF DISTRESS NOTED AT THIS TIME.
[2017-07-13] MEDS ORDERED: NEURONTIN PO SCH (13:30)
[2017-07-13] MEDS ORDERED: ZOFRAN ONE (14:17)
[2017-07-13] MEDS ORDERED: ZOFRAN IV PRN (14:30)
[2017-07-13 17:07] VITALS: BP 130/56
[2017-07-13 19:00] VITALS: BP 125/74
[2017-07-13] MEDS: TRIGLIDE PO SCH (21:00)
[2017-07-13] MEDS: VALIUM PO PRN (22:41)
[2017-07-14 00:16] VITALS: BP 138/66
[2017-07-14] MEDS: ULTRAM PO PRN ×3 (00:45→06:26)
[2017-07-14] MEDS: TYLENOL PO SCH ×4 (02:09→22:08)
[2017-07-14] MEDS: MORPHINE SULFATE IV PRN (02:30)
[2017-07-14] MEDS: ULTRAM PO SCH ×2 (04:00)
[2017-07-14 04:26] VITALS: BP 133/75
[2017-07-14 05:29] LABS: BASOPHIL % 0.2 % (0.0-0.2); EOSINOPHIL # 0.2 10^3/uL (0.0-0.2); EOSINOPHIL % 1.8 % (0.0-5.0); HEMOGLOBIN 10.9 g/dL (12.0-15.0); LYMPHOCYTES # 3.2 10^3/uL (1.0-4.8); LYMPHOCYTES % 28.8 % (24.0-44.0); MEAN CELL HGB 29.4 pg (26-34); MEAN CELL HGB CONCENTRATION 30.8 g/dL (33-37); MEAN CORP VOLUME 95.4 fL (78-100); MEAN PLATELET VOLUME 9.7 fL (7.8-11.0); MONOCYTES # 1.1 10^3/uL (0.3-0.8); MONOCYTES % 10.1 % (5.0-12.0); NEUTROPHIL # 6.6 10^3/uL (1.8-7.7); NEUTROPHILS % 58.4 % (41.0-85.0); RED CELL DISTRIBUTION WIDTH 13.9 % (11.5-14.5); WHITE BLOOD CELL 11.2 10^3/uL (4.5-11.0)
--- NOTE | 2017-07-14 06:30 | NUR ---
dc'd jolly catheter, removed 9cc of water from bulb, and removed tubing without difficulty, pt tolerated well. pt d/t void passed on to 0630 shift
[2017-07-14 07:18] VITALS: BP 130/82
[2017-07-14] MEDS: HUMALOG SQ PRN ×4 (07:40→22:09)
--- NOTE | 2017-07-14 08:49 | PRM.PN ---
Subjective Subjective Date: Jul 14, 2017 Time: 08:48 Subjective Nauseated thru the night Afebrile VSS HGB 10.9 DC jolly [facility] pain meds Patient History: Alzheimer's disease 32 MOTHER, , Age:83 Chronic obstructive pulmonary disease G8 SISTER, , Age:69 Congestive heart failure 32 MOTHER, , Age:83 G8 SISTER, , Age:69 G8 SISTER, , Age:50 Diabetes mellitus 32 MOTHER, , Age:83 G8 BROTHER G8 BROTHER, , Age:65 G8 SISTER, , Age:69 G8 SISTER, , Age:50 FH: breast cancer 32 MOTHER, , Age:83 FH: seizures 19 CHILD Heart valve insufficiency G8 BROTHER Hypertension 32 MOTHER, , Age:83 G8 BROTHER G8 BROTHER, , Age:65 G8 SISTER, , Age:69 G8 SISTER, , Age:50 Kidney stone 19 CHILD No known health problems 33 FATHER, , Age:36 19 CHILD Parkinson's disease 32 MOTHER, , Age:83 VTE VTE Risk Total Score: >5 VTE Risk Score VTE Risk: Score 0-1 = Low Risk (Aggressive mobilization; early ambulation; no VTE prophylaxis required) Score 2: Moderate Risk (Intermittent/Pneumatic Compression Device OR Lovenox/Heparin/Coumadin) Score 3-4: High Risk (Intermittent/Pneumatic Compression Device AND Lovenox/Heparin/Coumadin) Score > or =5: Highest Risk (Intermittent/Pneumatic Compression Device AND Lovenox/Heparin/Coumadin) Review of Systems Allergies: Coded Allergies: shellfish derived (Verified Allergy, Severe, ELEVATED BP, HYPERVENTALATION , 05/26/17) codeine (Verified Allergy, Unknown, ITCHING, 05/26/17) Scheduled Acebutolol Hcl (Acebutolol Hcl), 200 MG PO BID, (Reported) Aspirin (Aspir 81), 1 TAB PO DAILY, (Reported) Atorvastatin 40MG (Lipitor 40MG), 1 TAB PO DAILY, (Reported) Cyanocobalamin (Vitamin B-12) (Cyanocobalamin Injection), 1,000 MCG IJ EVERY 14 DAYS, (Reported) Desvenlafaxine Succinate (Pristiq Er), 1 TAB PO DAILY, (Reported) Fenofibrate (Lipofen), 150 MG PO HS, (Reported) Fluticasone/Salmeterol (Advair 250-50 Diskus), 1 PUFF IH BID, (Reported) Glimepiride (Glimepiride), 1 TAB PO BID, (Reported) Insulin Glargine,Hum.rec.anlog (Lantus), 40 UNIT SQ ACB, (Reported) Insulin Glargine,Hum.rec.anlog (Lantus Solostar), 45 UNITS SQ HS, (Reported) Insulin Lispro (Humalog), 5 UNIT SQ TIDM, (Reported) Insulin Lispro (Humalog), Unknown Dose SQ TIDM, (Reported) Levothyroxine Sodium (Levothyroxine Sodium), 1 TAB PO DAILY, (Reported) Losartan/Hydrochlorothiazide (Losartan-Hctz 100-25 Mg Tab), 1 TAB PO DAILY, ( Reported) [place]-3S/Dha/Epa/Fish Oil (Fish Oil 1,200 mg Softgel), 2 EACH PO BID, (Reported) Omeprazole (Omeprazole), 1 CAP PO BID, (Reported) Scheduled PRN Clobetasol Propionate (Clobetasol Propionate), 1 APPLIC TP BID PRN for ITCHING, (Reported) Fexofenadine Hcl (Martita Allergy), 1 TAB PO DAILY PRN for ALLERGIES, (Reported) Objective Vitals and I/O Vital Sign - Last 24 Hours 07/13/17 07/13/17 07/13/17 07/13/17 10:31 11:34 17:07 17:55 Temp 97.6 97.6 Pulse 90 74 85 Resp 18 18 B/P (MAP) 125/72 (89) 130/56 (80) Pulse Ox 95 98 90 O2 Delivery Room Air Nasal Canula Room Air Room Air 07/13/17 07/13/17 07/13/17 07/14/17 19:00 19:55 21:55 00:16 Temp 98.6 98.4 Pulse 86 79 90 Resp 18 16 18 B/P (MAP) 125/74 (91) 138/66 (90) Pulse Ox 95 91 97 O2 Delivery Room Air Room Air Nasal Cannula Nasal Canula O2 Flow Rate 2.00 FiO2 28 07/14/17 07/14/17 07/14/17 04:26 07:18 07:27 Temp 98.5 98.3 Pulse 93 96 Resp 18 18 B/P (MAP) 133/75 (94) 130/82 (98) Pulse Ox 96 95 O2 Delivery Nasal Canula Nasal Canula Room Air Intake and Output 07/13/17 07/13/17 07/14/17 15:00 23:00 07:00 Intake Total 480 ml 3940 ml 400 ml Output Total 2100 ml 2500 ml Balance 480 ml 1840 ml -2100 ml Medication Reconciliation Scheduled Acebutolol Hcl (Acebutolol Hcl), 200 MG PO BID, (Reported) Aspirin (Aspir 81), 1 TAB PO DAILY, (Reported) Atorvastatin 40MG (Lipitor 40MG), 1 TAB PO DAILY, (Reported) Cyanocobalamin (Vitamin B-12) (Cyanocobalamin Injection), 1,000 MCG IJ EVERY 14 DAYS, (Reported) Desvenlafaxine Succinate (Pristiq Er), 1 TAB PO DAILY, (Reported) Fenofibrate (Lipofen), 150 MG PO HS, (Reported) Fluticasone/Salmeterol (Advair 250-50 Diskus), 1 PUFF IH BID, (Reported) Glimepiride (Glimepiride), 1 TAB PO BID, (Reported) Insulin Glargine,Hum.rec.anlog (Lantus), 40 UNIT SQ ACB, (Reported) Insulin Glargine,Hum.rec.anlog (Lantus Solostar), 45 UNITS SQ HS, (Reported) Insulin Lispro (Humalog), 5 UNIT SQ TIDM, (Reported) Insulin Lispro (Humalog), Unknown Dose SQ TIDM, (Reported) Levothyroxine Sodium (Levothyroxine Sodium), 1 TAB PO DAILY, (Reported) Losartan/Hydrochlorothiazide (Losartan-Hctz 100-25 Mg Tab), 1 TAB PO DAILY, ( Reported) [place]-3S/Dha/Epa/Fish Oil (Fish Oil 1,200 mg Softgel), 2 EACH PO BID, (Reported) Omeprazole (Omeprazole), 1 CAP PO BID, (Reported) Scheduled PRN Clobetasol Propionate (Clobetasol Propionate), 1 APPLIC TP BID PRN for ITCHING, (Reported) Fexofenadine Hcl (Martita Allergy), 1 TAB PO DAILY PRN for ALLERGIES, (Reported) Course Blood Pressure Systolic: 130 Blood Pressure Diastolic: 82 Blood Pressure Mean: 98 Assessment/Plan Assessment/Plan Patient History: Alzheimer's disease 32 MOTHER, , Age:83 Chronic obstructive pulmonary disease G8 SISTER, , Age:69 Congestive heart failure 32 MOTHER, , Age:83 G8 SISTER, , Age:69 G8 SISTER, , Age:50 Diabetes mellitus 32 MOTHER, , Age:83 G8 BROTHER G8 BROTHER, , Age:65 G8 SISTER, , Age:69 G8 SISTER, , Age:50 FH: breast cancer 32 MOTHER, , Age:83 FH: seizures 19 CHILD Heart valve insufficiency G8 BROTHER Hypertension 32 MOTHER, , Age:83 G8 BROTHER G8 BROTHER, , Age:65 G8 SISTER, , Age:69 G8 SISTER, , Age:50 Kidney stone 19 CHILD No known health problems 33 FATHER, , Age:36 19 CHILD Parkinson's disease 32 MOTHER, , Age:83 IBAN BANEGAS MD Jul 14, 2017 08:49
[2017-07-14] MEDS: COZAAR PO SCH (09:00)
[2017-07-14] MEDS: BACTROBAN NASAL NS SCH ×2 (09:00→21:00)
[2017-07-14] MEDS: PEPCID PO SCH (09:00)
[2017-07-14] MEDS: SYNTHROID PO SCH (09:00)
--- NOTE | 2017-07-14 09:30 | NUR ---
Pt VOIDED 225 CC OF YELLOW CLEAR URINE IN TOILET.
--- NOTE | 2017-07-14 09:35 | NUR ---
Pt WALKING IN THE HALLWAY WITH PT, ASSSISTED BYU GAIT BELT AND ROLLING WALKER, Pt TOLERATED WELL.
[2017-07-14] MEDS: XARELTO PO SCH (09:53)
[2017-07-14] MEDS: PROTONIX PO SCH (09:53)
[2017-07-14] MEDS: COLACE PO SCH (09:53)
[2017-07-14] MEDS: LIPITOR PO SCH (09:53)
[2017-07-14] MEDS: HYDROCHLOROTHIAZIDE PO SCH (09:53)
--- NOTE | 2017-07-14 11:41 | NUR ---
Pt ON CPM MACHINE.
[2017-07-14 11:50] VITALS: BP 156/79
[2017-07-14] MEDS: VALIUM PO PRN (12:12)
[2017-07-14] MEDS: MOTRIN PO PRN ×2 (12:12→20:00)
--- NOTE | 2017-07-14 13:00 | NUR ---
ARRIVAL ([id number]) Patient arrived to room 337 via wheelchair from the Outpatient office , DIRECT ADMIT. Patient oriented to room, use of call mary, TV, . Policies and procedures explained. Patient verbalized understanding. Patient alert, oriented to person, place, and time. Offered fluids/ drinks. Patient has an IV of 22 G TO LAC infusing at 100 ML/HR. Assessment performed. UNABLE TO STATE LAST BM DATE. Vital signs: BP 142/60 , P 86 , R 20 , T 97.4 on admission. Pt HAS BRUISES ON BOTH HANDS STATES HE " IS ON BLOOD THINNER". PROVIDED TOLLING WALKER, REENFORCED Pt TO USE CALL LIGHT IN NEED OF HELP OR IN NEED TO USE RESTROOM, CALL LIGHT WITHIN REACH, YELLOW SHOCKS APPLIED, FALL RISK BAND APPLIED. Addendum: 07/14/17 at 1412 by Chester Allen RN - MED/FREIGHT BOOKER WRONG Pt DOCUMENTATION.
--- NOTE | 2017-07-14 14:42 | NUR ---
REPORT REPORT RECEIVED FROM AYESHA TREVIÑO AND ASSUMED CARE OF PT
[2017-07-14 16:03] VITALS: BP 147/79
--- NOTE | 2017-07-14 18:40 | NUR ---
REPORT REPORT GIVEN TO ONCOMING SHIFT AND CARE RELINQUISHED
[2017-07-14 20:36] VITALS: BP 148/59
[2017-07-14] MEDS: TRIGLIDE PO SCH (21:00)
[2017-07-15] VITALS: BP 156/84
[2017-07-15] MEDS: TYLENOL PO SCH ×3 (01:30→12:05)
[2017-07-15 05:25] LABS: BASOPHIL % 0.1 % (0.0-0.2); EOSINOPHIL # 0.3 10^3/uL (0.0-0.2); EOSINOPHIL % 2.5 % (0.0-5.0); LYMPHOCYTES # 2.9 10^3/uL (1.0-4.8); LYMPHOCYTES % 24.3 % (24.0-44.0); MEAN CELL HGB 29.8 pg (26-34); MEAN CELL HGB CONCENTRATION 31.8 g/dL (33-37); MEAN CORP VOLUME 93.5 fL (78-100); MEAN PLATELET VOLUME 9.6 fL (7.8-11.0); MONOCYTES # 1.2 10^3/uL (0.3-0.8); MONOCYTES % 10.6 % (5.0-12.0); NEUTROPHIL # 7.3 10^3/uL (1.8-7.7); NEUTROPHILS % 62.1 % (41.0-85.0); RED CELL DISTRIBUTION WIDTH 13.7 % (11.5-14.5); WHITE BLOOD CELL 11.7 10^3/uL (4.5-11.0)
[2017-07-15 05:58] VITALS: BP 157/84
[2017-07-15] MEDS: BACTROBAN NASAL NS SCH (07:04)
[2017-07-15] MEDS: SYNTHROID PO SCH (07:09)
[2017-07-15] MEDS: LANTUS SQ SCH (07:15)
[2017-07-15 08:31] VITALS: BP 154/86
[2017-07-15] MEDS: COLACE PO SCH (09:07)
[2017-07-15] MEDS: PEPCID PO SCH (09:07)
[2017-07-15] MEDS: XARELTO PO SCH (09:07)
[2017-07-15] MEDS: PROTONIX PO SCH (09:07)
[2017-07-15] MEDS: LIPITOR PO SCH (09:08)
[2017-07-15] MEDS: HYDROCHLOROTHIAZIDE PO SCH (09:08)
[2017-07-15] MEDS: COZAAR PO SCH (09:08)
--- NOTE | 2017-07-15 09:18 | PRM.PN ---
Subjective Subjective Date: Jul 15, 2017 Time: 09:18 Subjective Doing well Ok with Trandfers and ambulation HGB 12 Wound ok Will dc Patient History: Alzheimer's disease 32 MOTHER, , Age:83 Chronic obstructive pulmonary disease G8 SISTER, , Age:69 Congestive heart failure 32 MOTHER, , Age:83 G8 SISTER, , Age:69 G8 SISTER, , Age:50 Diabetes mellitus 32 MOTHER, , Age:83 G8 BROTHER G8 BROTHER, , Age:65 G8 SISTER, , Age:69 G8 SISTER, , Age:50 FH: breast cancer 32 MOTHER, , Age:83 FH: seizures 19 CHILD Heart valve insufficiency G8 BROTHER Hypertension 32 MOTHER, , Age:83 G8 BROTHER G8 BROTHER, , Age:65 G8 SISTER, , Age:69 G8 SISTER, , Age:50 Kidney stone 19 CHILD No known health problems 33 FATHER, , Age:36 19 CHILD Parkinson's disease 32 MOTHER, , Age:83 VTE VTE Risk Total Score: >5 VTE Risk Score VTE Risk: Score 0-1 = Low Risk (Aggressive mobilization; early ambulation; no VTE prophylaxis required) Score 2: Moderate Risk (Intermittent/Pneumatic Compression Device OR Lovenox/Heparin/Coumadin) Score 3-4: High Risk (Intermittent/Pneumatic Compression Device AND Lovenox/Heparin/Coumadin) Score > or =5: Highest Risk (Intermittent/Pneumatic Compression Device AND Lovenox/Heparin/Coumadin) Review of Systems Allergies: Coded Allergies: shellfish derived (Verified Allergy, Severe, ELEVATED BP, HYPERVENTALATION , 05/26/17) codeine (Verified Allergy, Unknown, ITCHING, 05/26/17) Scheduled Acebutolol Hcl (Acebutolol Hcl), 200 MG PO BID, (Reported) Aspirin (Aspir 81), 1 TAB PO DAILY, (Reported) Atorvastatin 40MG (Lipitor 40MG), 1 TAB PO DAILY, (Reported) Cyanocobalamin (Vitamin B-12) (Cyanocobalamin Injection), 1,000 MCG IJ EVERY 14 DAYS, (Reported) Desvenlafaxine Succinate (Pristiq Er), 1 TAB PO DAILY, (Reported) Fenofibrate (Lipofen), 150 MG PO HS, (Reported) Fluticasone/Salmeterol (Advair 250-50 Diskus), 1 PUFF IH BID, (Reported) Glimepiride (Glimepiride), 1 TAB PO BID, (Reported) Insulin Glargine,Hum.rec.anlog (Lantus), 40 UNIT SQ ACB, (Reported) Insulin Glargine,Hum.rec.anlog (Lantus Solostar), 45 UNITS SQ HS, (Reported) Insulin Lispro (Humalog), 5 UNIT SQ TIDM, (Reported) Insulin Lispro (Humalog), Unknown Dose SQ TIDM, (Reported) Levothyroxine Sodium (Levothyroxine Sodium), 1 TAB PO DAILY, (Reported) Losartan/Hydrochlorothiazide (Losartan-Hctz 100-25 Mg Tab), 1 TAB PO DAILY, ( Reported) [place]-3S/Dha/Epa/Fish Oil (Fish Oil 1,200 mg Softgel), 2 EACH PO BID, (Reported) Omeprazole (Omeprazole), 1 CAP PO BID, (Reported) Scheduled PRN Clobetasol Propionate (Clobetasol Propionate), 1 APPLIC TP BID PRN for ITCHING, (Reported) Fexofenadine Hcl (Martita Allergy), 1 TAB PO DAILY PRN for ALLERGIES, (Reported) Objective Vitals and I/O Vital Sign - Last 24 Hours 07/14/17 07/14/17 07/14/17 07/14/17 09:53 10:43 11:50 16:03 Temp 98.4 98.6 Pulse 104 103 106 Resp 18 B/P (MAP) 130/82 156/79 (104) 147/79 (101) Pulse Ox 84 96 95 O2 Delivery Room Air Nasal Canula Nasal Canula 07/14/17 07/14/17 07/14/17 07/15/17 19:13 20:36 21:30 00:00 Temp 98.2 98.5 Pulse 101 109 110 Resp 18 B/P (MAP) 148/59 (88) 156/84 (108) Pulse Ox 98 93 95 O2 Delivery Nasal Cannula Room Air Room Air Nasal Canula O2 Flow Rate 2.00 FiO2 28 07/15/17 07/15/17 07/15/17 07/15/17 05:58 08:31 09:08 09:08 Temp 98.1 98.0 Pulse 101 99 Resp 18 18 B/P (MAP) 157/84 (108) 154/86 (108) 154/86 154/86 Pulse Ox 96 92 O2 Delivery Nasal Canula Room Air Intake and Output 07/14/17 07/14/17 07/15/17 15:00 23:00 07:00 Intake Total 480 ml 240 ml Output Total 500 ml Balance 480 ml -260 ml Medication Reconciliation Scheduled Acebutolol Hcl (Acebutolol Hcl), 200 MG PO BID, (Reported) Aspirin (Aspir 81), 1 TAB PO DAILY, (Reported) Atorvastatin 40MG (Lipitor 40MG), 1 TAB PO DAILY, (Reported) Cyanocobalamin (Vitamin B-12) (Cyanocobalamin Injection), 1,000 MCG IJ EVERY 14 DAYS, (Reported) Desvenlafaxine Succinate (Pristiq Er), 1 TAB PO DAILY, (Reported) Fenofibrate (Lipofen), 150 MG PO HS, (Reported) Fluticasone/Salmeterol (Advair 250-50 Diskus), 1 PUFF IH BID, (Reported) Glimepiride (Glimepiride), 1 TAB PO BID, (Reported) Insulin Glargine,Hum.rec.anlog (Lantus), 40 UNIT SQ ACB, (Reported) Insulin Glargine,Hum.rec.anlog (Lantus Solostar), 45 UNITS SQ HS, (Reported) Insulin Lispro (Humalog), 5 UNIT SQ TIDM, (Reported) Insulin Lispro (Humalog), Unknown Dose SQ TIDM, (Reported) Levothyroxine Sodium (Levothyroxine Sodium), 1 TAB PO DAILY, (Reported) Losartan/Hydrochlorothiazide (Losartan-Hctz 100-25 Mg Tab), 1 TAB PO DAILY, ( Reported) [place]-3S/Dha/Epa/Fish Oil (Fish Oil 1,200 mg Softgel), 2 EACH PO BID, (Reported) Omeprazole (Omeprazole), 1 CAP PO BID, (Reported) Scheduled PRN Clobetasol Propionate (Clobetasol Propionate), 1 APPLIC TP BID PRN for ITCHING, (Reported) Fexofenadine Hcl (Martita Allergy), 1 TAB PO DAILY PRN for ALLERGIES, (Reported) Course Blood Pressure Systolic: 154 Blood Pressure Diastolic: 86 Blood Pressure Mean: 108 Assessment/Plan Assessment/Plan Patient History: Alzheimer's disease 32 MOTHER, , Age:83 Chronic obstructive pulmonary disease G8 SISTER, , Age:69 Congestive heart failure 32 MOTHER, , Age:83 G8 SISTER, , Age:69 G8 SISTER, , Age:50 Diabetes mellitus 32 MOTHER, , Age:83 G8 BROTHER G8 BROTHER, , Age:65 G8 SISTER, , Age:69 G8 SISTER, , Age:50 FH: breast cancer 32 MOTHER, , Age:83 FH: seizures 19 CHILD Heart valve insufficiency G8 BROTHER Hypertension 32 MOTHER, , Age:83 G8 BROTHER G8 BROTHER, , Age:65 G8 SISTER, , Age:69 G8 SISTER, , Age:50 Kidney stone 19 CHILD No known health problems 33 FATHER, , Age:36 19 CHILD Parkinson's disease 32 MOTHER, , Age:83 IBAN BANEGAS MD Jul 15, 2017 09:18
[2017-07-15 11:38] VITALS: BP 142/79
[2017-07-15] MEDS: HUMALOG SQ PRN (12:08)
[2017-07-15 12:09] VITALS: BP 142/79
--- NOTE | 2017-07-15 12:12 | NUR ---
DISCHARGE JAMES NAVARRO APPLIED, PT DISCHARGED HOME WITH OP PHYSICAL THERAPY, NEW PRESCRIPTIONS, F/U APPOINTMENT, AND INSTRUCTIONS GIVEN. PT VERBALIZED UNDERSTANDING. PT LEFT VIA W/C TO PRIVATE AUTO WITH SPOUSE.
--- NOTE | 2017-07-15 20:27 | DSH ---
DATE OF DISCHARGE: 07/15/2017 ADMITTING DIAGNOSIS: Osteoarthritis of the left knee. OTHER DIAGNOSES: Include sleep apnea, GERD, gout, diabetes, coronary artery disease and obesity. DISCHARGE DIAGNOSES: Osteoarthritis of the left knee plus postoperative anemia, expected. OPERATIVE PROCEDURE DATE: 07/12/2017. PROCEDURE PERFORMED: Left total knee arthroplasty. CONSULTATIONS: Will be Dr. Martinez. COMPLICATIONS: None. SUMMARY OF ADMISSION: A 67-year-old female with severe OA about the left knee that was limiting her everyday activities. She failed conservative treatment and was taken to the operating room for left total knee arthroplasty for pain relief. The patient's procedure was performed on 07/12/2017 without incident. Postoperatively, the patient was awake and alert and had a normal neurovascular exam. She has had physical therapy as well as occupational therapy. On discharge, the patient can transfer in and out of bed independently and can walk at least 100 feet with her walker. The patient's wound is benign today. Her neurovascular exam is normal. Her hemoglobin dropped down to 11.0; however, today it is back up to 12. Her vital signs have remained stable. The patient has been on foot pump, SCDs as well as Xarelto and early ambulation for DVT prophylaxis. The patient will be discharged today on 07/15/2017. She will be instructed to use her walker to ambulate. She will use aspirin 81 mg twice a day for the next month for DVT prophylaxis. She is going to get outpatient physical therapy at the hospital. I will see her back in my office in 1 week. She will leave her Aquacel dressing intact. Salvador Link MD DR: [email or web address] JOB# [id number]
--- NOTE | 2017-07-16 02:54 | CNH ---
DATE OF CONSULTATION: 07/13/2017 CONSULT/HISTORY AND PHYSICAL REFERRING PHYSICIAN: Dr. Link, orthopedic surgery. REASON FOR CONSULTATION: Medical management of multiple medical problems. HISTORY OF PRESENT ILLNESS: The patient is a 67-year-old woman who is status post left total knee arthroplasty. She has a history of hypertension, diabetes mellitus type 2, obstructive sleep apnea, rheumatoid arthritis, several other medical problems. At time of exam, pain is well controlled. She denies any chest pain or difficulty breathing. She is out of bed to chair already. No other acute events overnight. PAST MEDICAL HISTORY: Includes hypertension, diabetes mellitus type 2, obstructive sleep apnea, rheumatoid arthritis, gout, GERD and morbid obesity. PAST SURGICAL HISTORY: She has had left knee arthroscopy, hysterectomy, cataract removal, rotator cuff repair, cholecystectomy and appendectomy, now status post left total knee arthroplasty. ALLERGIES: ALLERGIC TO CODEINE AND SHELLFISH. HOME MEDICATIONS: List includes aspirin 81 mg daily, atorvastatin 40 mg daily, vitamin B12 every 14 days, Pristiq 50 mg daily, fenofibrate 150 mg daily, Martita as needed, Advair twice a day, glimepiride 4 mg b.i.d., Lantus 40 units for breakfast, 45 units at night, Humalog premeal, levothyroxine 88 mcg daily, losartan/hydrochlorothiazide 100/25 mg daily and omeprazole 40 mg daily. SOCIAL HISTORY: Lives at home. Denies any alcohol, tobacco or illicit drug use. She is a former smoker. FAMILY HISTORY: Negative for early coronary artery disease and diabetes. REVIEW OF SYSTEMS: CARDIAC: Denies chest pain, shortness of breath or dyspnea on exertion. PULMONARY: No cough, sputum production or pleuritic chest pain. GASTROINTESTINAL: No nausea, vomiting, diarrhea or constipation. All else negative in 10 point review of system except as in HPI. PHYSICAL EXAMINATION: VITAL SIGNS: At time of exam, height 162.5 cm, weight 114.3 kg, BMI 43.3. Temperature 98.5, pulse of 90, respiratory rate 18, blood pressure 131/72 and O2 saturation 95% on 2 liters nasal cannula. GENERAL: She is alert, in no acute distress at time of exam, pleasant lady. HEENT: Pupils equal, round, reactive to light. Sclerae are anicteric. Oropharynx is clear. Mucous membranes are moist. NECK: Supple, no lymphadenopathy. CARDIOVASCULAR: At time of exam is regular rate and rhythm. LUNGS: Clear bilaterally. No wheezing. ABDOMEN: Soft. Bowel sounds are present, nontender to palpation. EXTREMITIES: No cyanosis, clubbing or significant edema. NEUROLOGIC: Grossly nonfocal. LABORATORY DATA: CBC: White count is 16.4, hemoglobin 11.7, platelets 278. ASSESSMENT AND PLAN: This patient is a 67-year-old woman here with diabetes mellitus type 2, hypertension, hyperlipidemia, hypothyroidism, obstructive sleep apnea, rheumatoid arthritis and status post left total knee arthroplasty. 1. We will continue current cardiovascular medications. 2. We will cover sliding scale insulin, continue her diabetic medications. 3. Appropriate p.r.n. pain and nausea medication. 4. DVT prophylaxis, she is on Xarelto. Thank you very much for this consult. We will follow with you. This plan was discussed with the patient. She is her own decision maker. She does understand and concur with plans. Kameron Martinez MD DR: ELY/nikolai JOB# [id number]
== END 2017-07-15 13:11 | disposition home or self-care (01) | DRG 470 ==
LOC: MS 07-12 04:24 → EDPENDDISTM 07-15 12:11
PROVIDERS: ADMIT Orthopaedic Surgery; ATTEND Orthopaedic Surgery
PROC: 0SRD0J9 Replacement of Left Knee Joint with Synthetic Substitute, Cemented, Open Approach (ICD-10-PCS; principal; 2017-07-12 14:01)
DX: M17.12 Unilateral primary osteoarthritis, left knee (principal); E66.01 Morbid (severe) obesity due to excess calories; D64.9 Anemia, unspecified; E11.9 Type 2 diabetes mellitus without complications; E78.2 Mixed hyperlipidemia; E03.9 Hypothyroidism, unspecified; Z68.41 Body mass index [BMI] 40.0-44.9, adult; G47.33 Obstructive sleep apnea (adult) (pediatric); I10 Essential (primary) hypertension; K21.9 Gastro-esophageal reflux disease without esophagitis; R11.0 Nausea; M06.862 Other specified rheumatoid arthritis, left knee; M10.9 Gout, unspecified; I25.10 Atherosclerotic heart disease of native coronary artery without angina pectoris; Z82.49 Family history of ischemic heart disease and other diseases of the circulatory system; Z90.710 Acquired absence of both cervix and uterus; Z81.8 Family history of other mental and behavioral disorders; Z82.5 Family history of asthma and other chronic lower respiratory diseases; Z83.3 Family history of diabetes mellitus; Z80.3 Family history of malignant neoplasm of breast; Z82.0 Family history of epilepsy and other diseases of the nervous system; Z84.1 Family history of disorders of kidney and ureter; Z88.6 Allergy status to analgesic agent; Z88.8 Allergy status to other drugs, medicaments and biological substances; Z79.4 Long term (current) use of insulin; Z91.013 Allergy to seafood; Z79.899 Other long term (current) drug therapy; Z79.82 Long term (current) use of aspirin; Z90.49 Acquired absence of other specified parts of digestive tract; Z98.42 Cataract extraction status, left eye; Z98.41 Cataract extraction status, right eye; Z87.891 Personal history of nicotine dependence; Z79.01 Long term (current) use of anticoagulants
CPT/HCPCS: 36415; 64447; 82948; 85025; 85027; 87070; 97161; 97165; A4338; J0330; J1100; J1885; J2001; J2250; J2270; J2405; J3010; J3490; J7030; J7040; J7050; J7120; 73560-LT; 97110-GP; 97116-GP; 97530-GP; A9270; C1776; G8978-CK; G8979-CI; G8987; G8988; J2710; J8499

== ENCOUNTER 2020-04-16 06:45 | Day surgery (SDC) | payer MEDICARE, OTHER ==
[~2020-04-16] VITALS: Ht 162.6 cm; Wt 112.9 kg
[2020-04-16] VITALS (7 sets, daily range): BP systolic 141–166; BP diastolic 81–90
[~2020-04-16 06:45] MED LIST changes: +ALBU1.25 NEB; +ALBU8.5H7 IH; -ASPI-484 PO; +ASPI-485 PO; +BUPR1PAT7 TD; +CELE200C PO; +CYCL1DRO OP; +EXEN2PEN SQ; +FLUT1BLS3 IH; +GABA100C7 PO; -GLIM4TAB2 PO; +GLIM4TAB8 PO; +LEVO100T5 PO; +LOSA100T14 PO; -LOSA100T6 PO; +LOSA50TA14 PO; -LOSA50TA6 PO; +MONT10TA6 PO; +NITR0.4T26 SL; +NS 1000ML 1,000 ML ONE; +OMEP40CA41 PO; -OMEP40CA6 PO; +VALS1TAB14 PO
[2020-04-16] MEDS ORDERED: SODIUM CHLORIDE IRR BOTTLE IR ONE (07:31)
[2020-04-16] MEDS ORDERED: XYLOCAINE 1%-EPI 1:100,000 ONE (07:32)
[2020-04-16] MEDS ORDERED: SENSORCAINE-MPF 0.25% VIAL ONE (07:32)
[2020-04-16] MEDS ORDERED: NS 1000ML 1,000 ML ONE (07:35)
[2020-04-16] MEDS ORDERED: ZOFRAN ONE (07:36)
[2020-04-16] MEDS ORDERED: PEPCID IV ONE (07:36)
[2020-04-16] MEDS ORDERED: LIDOCAINE 2% VIAL ONE (07:36)
[2020-04-16] MEDS ORDERED: SUBLIMAZE ONE (07:37)
[2020-04-16] MEDS ORDERED: DIPRIVAN IV ONE (07:37)
[2020-04-16] MEDS ORDERED: VERSED ONE (07:37)
[2020-04-16 08:03] LABS: CALCIUM 9.9 mg/dL (8.4-10.5); CARBON DIOXIDE 22.9 mmol/L (20.0-32)
--- NOTE | 2020-04-16 09:26 | PCM.EKG ---
[facility] Test Date: 2020-04-16 Test Time: 07:11:30 Pat Name: ATUL MAJANO Department: Room: Gender: F Spool Maker: MM RT : 1950 Requested By: IBAN BANEGAS Order Number: [id number] Reading MD: Measurements Intervals [place] Rate: 76 P: 76 IN: 232 QRS: 21 QRSD: 90 T: 63 QT: 404 QTc: 455 Interpretive Statements Sinus rhythm Prolonged IN interval Low voltage, precordial leads Compared to ECG 01/06/2018 11:21:15 Low QRS voltage now present Please click the below link to view image of tracing.
--- NOTE | 2020-04-16 09:29 | OPH ---
DATE OF SURGERY: 04/16/2020 PREOPERATIVE DIAGNOSES: 1. Left ring trigger finger. 2. 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 POSTOPERATIVE DIAGNOSES: 1. Left ring trigger finger. 2. 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 OPERATIVE PROCEDURES: 1. Left ring finger A1 rodney release. 2. Through a separate incision is an ulnar nerve decompression at the wrist. SURGEON: Dr. Salvador Link ANESTHESIA: General. TOURNIQUET TIME: 21 minutes at 300 mmHg. DRAINS: None. BLOOD LOSS: 10 mL. DESCRIPTION OF INDICATIONS: The patient is a 70-year-old female with complaints of painful triggering about the left ring finger as well as numbness about the left little finger. The patient had painful triggering and was having to use her opposite hand to reduce the finger. She also had numbness about the left little finger that was constant. There was no subluxation of the ulnar nerve at the elbow. She had a positive Tinel sign about the ulnar nerve at the wrist. The patient was taken to the operating room for A1 rodney release as well as decompression of the ulnar nerve at the wrist. DESCRIPTION OF PROCEDURE: The patient was placed on the operating table in the supine position. A general anesthetic was induced. A well-padded tourniquet was placed around the left upper extremity. Left upper extremity was then sterilely prepped and draped. The arm was exsanguinated with an Esmarch and then the tourniquet was inflated to 300 mmHg. The patient had a transverse incision made in line with the ring finger at the distal palmar crease. The incision was taken through the skin and then it was bluntly dissected down to the flexor tendon sheath. The A1 rodney was identified and released with a 15 blade. The patient had the wounds irrigated and closed with a 3-0 Ethilon in a horizontal mattress method. The patient then had a longitudinal incision made about the ulnar border of the wrist and palm. Incision was taken through the skin and the subcutaneous tissue. The ulnar nerve was identified and released through Guyon's canal. The wounds were then irrigated and closed with a 3-0 Ethilon in a horizontal mattress method. Compressive dressing was applied. The patient's tourniquet was released. She was sent to recovery in stable condition. Salvador Link MD DR: WILFRID/nikolai JOB# [id number]
[2020-04-16] MEDS ORDERED: TRAM50TA PO (10:12)
== END 2020-04-16 10:20 | disposition home or self-care (01) ==
LOC: SURG 06:45
PROVIDERS: ATTEND Orthopaedic Surgery
DX: G56.22 Lesion of ulnar nerve, left upper limb (principal); M65.342 Trigger finger, left ring finger; I10 Essential (primary) hypertension; J45.909 Unspecified asthma, uncomplicated; E11.9 Type 2 diabetes mellitus without complications; K21.9 Gastro-esophageal reflux disease without esophagitis; M06.9 Rheumatoid arthritis, unspecified; G47.30 Sleep apnea, unspecified; E78.5 Hyperlipidemia, unspecified; E66.9 Obesity, unspecified; E03.9 Hypothyroidism, unspecified; Z90.49 Acquired absence of other specified parts of digestive tract; Z98.890 Other specified postprocedural states; Z90.710 Acquired absence of both cervix and uterus; Z79.899 Other long term (current) drug therapy; Z79.82 Long term (current) use of aspirin; Z88.8 Allergy status to other drugs, medicaments and biological substances; Z79.4 Long term (current) use of insulin; Z82.49 Family history of ischemic heart disease and other diseases of the circulatory system
CPT/HCPCS: 26055; 36415; 64719; 80048; 83036; 93005; A4217; J2001; J2250; J2405; J3010; J3490 ×3; J7030 ×2

== ENCOUNTER → 2021-10-13 | Outpatient (CLI) | payer MEDICARE, OTHER ==
[~2021-10-13] MED LIST changes: +CYCL10TA19 PO; -CYCL10TA2 PO; -NS 1000ML 1,000 ML IV SCH; -NS 1000ML 1,000 ML ONE; -OMEP40CA41 PO; +OMEP40CA8 PO
== END | disposition home or self-care (01) ==
LOC: RAD 10:03
PROVIDERS: ATTEND Orthopaedic Surgery
DX: M17.11 Unilateral primary osteoarthritis, right knee (principal)
CPT/HCPCS: 73700

== ENCOUNTER 2021-11-24 09:14 | Inpatient (IN) | payer MEDICARE, OTHER ==
[2021-11-21 14:44] VITALS: BP 139/56
[2021-11-21 16:02] LABS: BILIRUBIN,URINE NEGATIVE (NEGATIVE)
[2021-11-24] VITALS (8 sets, daily range): BP systolic 113–160; BP diastolic 62–88
[~2021-11-24] VITALS: Ht 162.6 cm; Wt 123.2 kg
[~2021-11-24 09:14] MED LIST changes: +ANCEF 3 GM in NS 100ML 100 ML IV ONE; +ANCEF ONE; +ATOR80TA PO; +BACTROBAN OINTMENT TP ONE; +BENZ200C48 PO; +DECADRON IV ONE; +DULA1.5P SQ; +DULO60CA8 PO; +GABA600T7 PO; +NEURONTIN PO ONE; +NS 100ML 100 ML IV ONE; +OFIRMEV IV ONE; +PANT40TA6 PO; +ULTRAM PO ONE
[2021-11-24] MEDS ORDERED: TRANSDERM-SCOP TD ONE (09:30)
[2021-11-24] MEDS: NS 1000ML 1,000 ML IV SCH ×2 (09:36→16:00)
[2021-11-24] MEDS ORDERED: OFIRMEV 100 ML IV ONE (09:40)
[2021-11-24] MEDS ORDERED: NEURONTIN ONE (09:40)
[2021-11-24] MEDS ORDERED: ULTRAM ONE (09:40)
[2021-11-24] MEDS ORDERED: DECADRON ONE ×2 (09:40→12:18)
[2021-11-24] MEDS ORDERED: ULTRAM PO ONE (09:45)
[2021-11-24] MEDS ORDERED: NEURONTIN PO ONE ×2 (09:45)
[2021-11-24] MEDS ORDERED: CEPACOL SORE THROAT LOZENGE MM PRN (10:30)
[2021-11-24] MEDS ORDERED: ZOFRAN IV PRN (10:30)
[2021-11-24] MEDS ORDERED: ULTRAM PO PRN (10:30)
[2021-11-24] MEDS: TRELEGY ELLIPTA 100-62.5-25 IH SCH (11:00)
[2021-11-24] MEDS ORDERED: WATER ONE (11:14)
[2021-11-24] MEDS ORDERED: NS 250ML 250 ML ONE (11:14)
[2021-11-24] MEDS ORDERED: SODIUM CHLORIDE IRR BOTTLE IR ONE (11:14)
[2021-11-24] MEDS ORDERED: NS 3000ML IRR IR ONE (11:14)
[2021-11-24] MEDS ORDERED: MARCAINE 0.5% ONE (12:18)
[2021-11-24] MEDS ORDERED: EXPAREL 266 MG/20 ML VIAL IJ ONE (12:18)
[2021-11-24] MEDS ORDERED: SENSORCAINE-MPF 0.25% VIAL ONE (12:18)
[2021-11-24] MEDS ORDERED: VERSED ONE (12:18)
[2021-11-24] MEDS ORDERED: ZOFRAN ONE (12:20)
[2021-11-24] MEDS ORDERED: DURAMORPH ONE (12:20)
[2021-11-24] MEDS ORDERED: TRANEXAMIC ACID ONE ×2 (12:20→15:31)
[2021-11-24] MEDS ORDERED: DIPRIVAN 100 ML IV ONE (12:20)
[2021-11-24] MEDS ORDERED: LACTATED RINGERS 1,000 ML ONE ×2 (12:20→15:31)
--- NOTE | 2021-11-24 15:00 | NUR ---
DISCHARGE PLAN - [facility] - [place] - DEC 08, 2021@1200 CM SPOKE WITH PATIENT'S DAUGHTER TAMARA AND PATIENT CURRENTLY LIVES@HOME WITH SPOUSE. PATIENT HAS WALKER, BED RAILS AND CPAP@HOME AND WOULD LIKE TO HAVE [facility] FOR PT/OT/EDU AFTER DISCHARGE. PATIENT SEE'S PAMELLA ESCOTO IN [place] FOR PCP. CM WILL VISIT WITH PATIENT AFTER PATIENT RETURNS FROM SURGERY. CM CONTACTED [facility] AND APPT MADE FOR PATIENT WITH PATIENT'S PCP PAMELLA ESCOTO NP FOR DEC 08, 2021@1200. CM ENTERED APPT TIME IN PATIENT'S VISIT REPORT FOR REMINDER@DISCHARGE. Addendum: 11/25/21 at 1544 by Montserrat Adams RN,Case Managemen RN CM@[email or web address] AND VISITED WITH PATIENT ABOUT DISCHARGE PLANS AND NEEDS. DUE TO PATIENT BEING NON WEIGHT BEARING TO HER RIGHT KNEE - PATIENT HAS DECIDED@THIS TIME THAT SHE WANTS TO GO TO REHAB. PATIENT EDUCATED ON OPTIONS AND REPORTS THAT SHE DOES HAVE A WALKER, BUT WOULD LIKE TO GET A NEW ONE OF HER OWN. CM OFFERED TO ORDER PATIENT A WALKER FOR [employer] AND PATIENT AGREEABLE. PATIENT REQUEST TO GO TO [facility] FOR REHAB. PATIENT SIGNS [facility] CHOICE LETTER AND [employer] CHOICE LETTER OF THE SAME FOR CHART. CM LATER RECEIVED PHONE CALL FROM PATIENT'S DAUGHTER TAMARA AND INFORMED THAT PATIENT WOULD LIKE FOR CM TO SET PATIENT UP WITH A WHEELCHAIR. CM SPOKE WITH EDDIE IN OT AND CONFIRMED THAT PATIENT COULD BENEFIT FROM A WHEELCHAIR. PER [employer] - PATIENT'S INSURANCE WILL EITHER PAY FOR A WHEELCHAIR OR A WALKER. WALKER COST WOULD BE $50 AND WHEELCHAIR $260 IF PATIENT WOULD LIKE TO CHOOSE WHICH ONE INSURANCE PAYS FOR. CM CONTACTED LEAH PELLETIER NP@DR [email or web address]'S OFFICE AND PER LEAH - PATIENT DOES NEED WHEELCHAIR. CM SPOKE WITH PATIENT AND INFORMED OF PRICES OF BOTH AND INSURANCE WOULD ONLY PAY FOR ONE. PATIENT REQUEST INSURANCE PAY FOR WHEELCHAIR AND SHE WILL BORROW A WALKER. CM CONTACTED [facility] AND INFORMED OF PATIENT'S REQUEST FOR WHEELCHAIR. CM FAXED WHEELCHAIR ORDER TO [facility]. FAX CONFIRMATION CONFIRMED COMPLETE. CM CONTACTED KEM TATUM@[facility] AND THEY HAVE A BED AVAILABLE AND CAN TAKE PATIENT ON THE COVID WAIVER IF NEEDED. CM FAXED PATIENT'S CLINICALS TO [facility]. FAX CONFIRMATION CONFIRMED COMPLETE. CM WILL CONTINUE TO FOLLOW. Addendum: 11/25/21 at 1733 by Montserrat Adams RN,Case Managemen RN CM SPOKE WITH LEAH PELLETIER NP AND INFORMED HER THAT [facility] COULD TAKE PATIENT UNDER COVID WAIVER TOMORROW. GELY SPOKE WITH KEM TATUM@[facility] AND PATIENT APPROVED AND [facility] VAN CAN PICK PATIENT UP TOMORROW ANYTIME AFTER 2PM. GELY NOTIFIED MUMTAZ RUSSO RN CHARGE NURSE OF PLAN. Addendum: 11/26/21 at 1442 by Montserrat Adams RN,Case Managemen RN CM FAXED PASRR TO [facility]. CM FAXED PATIENT'S COMPLETE CLINICALS TO PAMELLA ESCOTO@[phone]. PATIENT WITH F/U APPT 12/08/21@1200. [facility] SPOKE WITH PATIENT PRIOR TO DISCHARGE AND PATIENT REQUEST TO F/U WITH PAMELLA WHILE IN [facility]. CM REMINDED PATIENT'S DAUGHTER OF APPT AND INFORMED THAT [facility] HAD DELIVERED PATIENTS WHEELCHAIR.
[2021-11-24] MEDS ORDERED: BENADRYL ONE (15:31)
--- NOTE | 2021-11-24 16:27 | OPH ---
DATE OF SURGERY: 11/24/2021 DICTATOR NAME: Salvador Link MD PREOPERATIVE DIAGNOSIS: Osteoarthritis of the right knee. POSTOPERATIVE DIAGNOSIS: Osteoarthritis of the right knee. OPERATIVE PROCEDURE: Right total knee arthroplasty using Medacta Sphere knee, size 3+ femur, a size 2 tibia, a medium-size dome patella. SURGEON: Salvador Link MD. ANESTHESIA: Spinal. COMPLICATIONS: Right proximal tibia fracture requiring open reduction internal fixation. BLOOD LOSS: 750 mL TOURNIQUET TIME: 99 minutes at 300 mmHg. DESCRIPTION OF INDICATIONS: The patient is a 71-year-old female with pain about the right knee for several months. She has had a past history of OA about the knee. She had a previous subchondroplasty about the medial proximal tibia in 2018. The patient complains of pain with weightbearing. She has had several cortisone injections, with temporary relief. The patient has GERD and is limited on the amount of anti-inflammatories that she can take. She is able to tolerate Celebrex without significant relief. She has pain with household ambulation as well as night pain. The patient complains of giving way about the knee at times. She did a home exercise program and has used ouv-sax-tkyeg knee sleeve. The patient has full extension with 120 degrees of flexion of the knee. She is tender anteriorly and medially. She has 1-2+ effusion. MRI scan shows a tear of the posterior horn of the medial meniscus as well as severe degenerative changes about the medial compartment and the patellofemoral compartment. The patient was taken to the operating room for total knee arthroplasty. DESCRIPTION OF PROCEDURE: The patient was placed on the operating table in the supine position after being given a spinal anesthetic by the anesthesia department. A well-padded tourniquet was placed around the right thigh. The right lower extremity was sterilely prepped and draped. The leg was exsanguinated with an Esmarch and then the tourniquet was inflated to 300. The knee was flexed to 90 degrees. An anterior incision was made. Incision was taken through the skin and the subcutaneous tissues. Full thickness flaps were developed medially and laterally. The patient had the medial parapatellar arthrotomy performed. Patella was deviated laterally. The capsule and the MCL were released around the posteromedial corner of the proximal tibia. The patient had the medial and lateral meniscectomies performed. The anterior and posterior cruciate ligaments were excised. The patient had the HelloSignKnee femoral cutting guide placed about the distal femur. It was held into position with multiple pins. The distal femoral cut was made with the power saw. The patient then had the #2 jig applied. It was size 3+ and held into position with 2 screws and 2 pins. The anterior and posterior femoral cuts as well as the chamfer cuts were made. The tibia was subluxed anteriorly. The cutting guide was placed about the proximal tibia and held into position with multiple pins. The patient had the tibial cut made with the power saw. The patient had a #3 tibial trial applied. It had good coverage. The trial was then pinned into position. The central drill hole was made. The patient then had the cruciate punch impacted and there appeared to be no problems. The patient then had the trial reduction done with a 3 tibia, a 3+ femur and a 10 mm insert. The knee had good range of motion with full extension and 120 degrees of flexion, excellent medial and lateral stability as well as anterior and posterior stability. The patella was everted, it was cut at 7 mm. There was still 13 mm of patella remaining. The patient then had the drill holes made and a medium dome patella had the best fit. There was excellent tracking of the patella. The peripheral edges of the patella were cauterized. At that point, while doing the evaluation of the trial components, it was noted that the patient had a fracture of the proximal tibia. The patient had the femoral component removed and the femoral sulcus cut was made. The final medial and lateral femoral drill holes had been previously made. The patient then had the tibial trial removed. The fracture was reduced with a large bone clamp and we placed three 4.0 cannulated screws anteriorly from medial to lateral and 2 posteriorly from medial to lateral to stabilize the fracture. We elected to downsize the tibial component to a size 2. The size 2 tibial trial had good coverage and good alignment. The trial components were then all removed from the knee. The C-arm view showed that the hardware was in satisfactory position and the fracture was well reduced. The patient had the wounds irrigated and dried. The size 2 tibial component was cemented into position. A 10 mm insert was then impacted into position and secured with an anterior screw. The 3+ femur was cemented as was the patellar component. The patient then had the patella cemented into position. Once all the excess cement was removed and the cement had hardened, then the knee was irrigated with Betadine-containing solution for 3 minutes. After 3 minutes, Betadine was irrigated from the knee and the tourniquet was released. The bleeding was controlled with the Aquamantys device. The patient had the capsule closed with a #2 PDS in interrupted [id number]-[id number] manner. The subcutaneous was closed with 2-0 barbed Monocryl in a running manner and the skin was closed with srinivasan. A suction Prevena dressing was applied, reinforced with 4 x 4, cast padding, and Peter wrap. The patient was sent to recovery in stable condition. Salvador Link MD DR: WILFRID/JIMMIE TID: [id number] RECEIPT: [id number]
--- NOTE | 2021-11-24 16:30 | NUR ---
RECEIVED RECEIVED PT AND ASSUMED CARE OF PT. SEE SPECIAL VS RECORD IN CHART. PT DENIES COMPLAINTS. ICEMAN ON AND FUNCTIONING PROPERLY.
[2021-11-24] MEDS: ANCEF 3 GM in NS 100ML 100 ML IV SCH (18:00)
[2021-11-24] MEDS: TYLENOL PO SCH ×2 (18:00→23:27)
--- NOTE | 2021-11-24 18:45 | NUR ---
LAB LAB ATTEMPT X 2 UNSUCCESSFUL. REPORT GIVEN TO ONCOMING SHIFT RE: LAB ATTEMPT
--- NOTE | 2021-11-24 19:06 | NUR ---
REPORT REPORT TO ONCOMING SHIFT
[2021-11-24] MEDS: NEURONTIN PO SCH (20:36)
[2021-11-24] MEDS: RESTASIS OP SCH (20:36)
[2021-11-24] MEDS: LIPITOR PO SCH (20:36)
[2021-11-24] MEDS: PROTONIX PO SCH (20:37)
[2021-11-24] MEDS: SECTRAL PO SCH (20:37)
[2021-11-24] MEDS: SINGULAIR PO SCH (20:37)
--- NOTE | 2021-11-24 21:54 | PCM.HP ---
History of Present Illness Reason for Visit: Right knee pain History of Present Illness 71 year old female presents with complaints of right knee pain for the past 2 months. She has a known history of advanced OA to the right knee. She had a subchondroplasty to the right knee in 2018. She reports she has been having pain with weight bearing over the last two months especially. She has tried cortisone injections, PT, and over the counter analgesia without significant relief. She is seeking a right total knee arthroplasty today. Past Medical History Cardiac: HTN Pulmonary: Asthma [employer]TER: Other (Left eye blindness, pupil does not dilate) GI: GERD Musculoskeletal: Osteoarthritis Endocrine: Diabetes, Hypothyroidism Past Surgical History: Appendectomy, Cataract Removal (bilateral), Total knee replacement (Left), Tonsillectomy, Other (Left rotator cuff repair, hysterectomy, right trigger finger, vocal cord surgery) Past Social History Smoke: Quit (22 years ago) Alcohol: none Drugs: None Lives: with Family Travel Hx EBOLA RISK:Travel to/contact w: No Review of Systems Constitutional: No: Fever, Chills, Sweats, Weakness, Malaise, Other Eyes: No: Pain, Vision change, Conjunctivae inflammation, Eyelid inflammation, Other, Redness ENT: No: Ear pain, Ear discharge, Nose pain, Nose discharge, Nose congestion, Mouth pain, Mouth swelling, Throat pain, Throat swelling, Other Respiratory: No: Cough, Dry, Shortness of breath, SOB with excertion, Wheezing, Hemoptysis, Pleuritic Pain, Sputum, Wheezing, Other Cardiovascular: No: Chest Pain, Palpitations, Orthopnea, Paroxysmal Noc. Dyspnea, Edema, Lt Headedness, Other Gastrointestinal: No: Nausea, Vomiting, Abdominal Pain, Diarrhea, Constipation, Melena, Hematochezia, Other Genitourinary: No Dysuria, No Frequency, No Incontinence, No Hematuria, No Retention, No Other Musculoskeletal: leg pain (R knee pain) Skin: No: Rash, Lesions, Jaundice, Bruising, Other Neurological: No: Weakness, Numbness, Incoordination, Change in speech, Confusion, Seizures, Other Allergies: Coded Allergies: shellfish derived (Verified Allergy, Severe, ELEVATED BP, HYPERVENTALATION, 04/12/20) codeine (Verified Allergy, Unknown, ITCHING, 04/12/20) Scheduled Acebutolol Hcl (Acebutolol Hcl), 200 MG PO BID, (Reported) Albuterol Sulfate (Albuterol Sulfate), 1 VIAL NEB BID, (Reported) Aspirin (Aspir 81), 1 TAB PO DAILY, (Reported) Atorvastatin 80MG (Lipitor 80MG), 1 TAB PO HS, (Reported) Celecoxib (Celebrex), 1 CAP PO HS, (Reported) Cyanocobalamin (Vitamin B-12) (Cyanocobalamin Injection), 1,000 MCG IJ EVERY 14 DAYS, (Reported) Cyclosporine (Restasis), 1 DROP OP BID, (Reported) Dulaglutide (Trulicity), 1.5 MG SQ Q7D, (Reported) Duloxetine Hcl (Cymbalta), 1 CAP PO DAILY, (Reported) Fenofibrate (Lipofen), 150 MG PO HS, (Reported) Fluticasone/Umeclidin/Vilanter (Trelegy Ellipta 100-62.5-25), 1 PUFF IH DAILY24, (Reported) Gabapentin (Gabapentin), 1 TAB PO BID, (Reported) Insulin Glargine,Hum.rec.anlog (Lantus Solostar), 70 UNITS SQ BID, (Reported) Insulin Lispro (Humalog), Unknown Dose SQ TIDM, (Reported) Levothyroxine Sodium (Levothyroxine Sodium), 1 TAB PO DAILY, (Reported) Montelukast Sodium (Singulair), 1 TAB PO HS, (Reported) Pantoprazole Sodium (Pantoprazole Sodium), 1 TAB PO BID, (Reported) Valsartan/Hydrochlorothiazide (Diovan Hct 160-25 Mg Tablet), 1 TAB PO DAILY, (Reported) Scheduled PRN Albuterol Sulfate (Proair Hfa), 1 PUFF IH Q4 PRN for SHORTNESS OF BREATH, (Reported) Benzonatate (Benzonatate), 1 CAP PO TIWP PRN for cough, (Reported) Nitroglycerin (Nitroglycerin), 1 TAB SL PRN PRN for CHEST PAIN, (Reported) Discontinued Medications Atorvastatin 40MG (Lipitor 40MG), 1 TAB PO HS, (Reported) Discontinued Reason: No Longer Taking Buprenorphine (Butrans), 1 EACH TD Q7D, (Reported) Discontinued Reason: No Longer Taking Clobetasol Propionate (Clobetasol Propionate), 1 APPLIC TP BID PRN for ITCHING, (Reported) Discontinued Reason: No Longer Taking Desvenlafaxine Succinate (Pristiq Er), 1 TAB PO DAILY, (Reported) Discontinued Reason: No Longer Taking Exenatide Microspheres (Bydureon Pen), 2 MG SQ Q7D, (Reported) Discontinued Reason: No Longer Taking Gabapentin (Gabapentin), 300 CAP PO BID, (Reported) Discontinued Reason: No Longer Taking Glimepiride (Glimepiride), 1 TAB PO BID, (Reported) Discontinued Reason: No Longer Taking Insulin Lispro (Humalog), 5 UNIT SQ TIDM, (Reported) Discontinued Reason: No Longer Taking Milfay-3S/Dha/Epa/Fish Oil (Fish Oil 1,200 mg Softgel), 2 EACH PO BID, (Reported) Discontinued Reason: No Longer Taking Omeprazole (Omeprazole), 1 CAP PO BID, (Reported) Discontinued Reason: No Longer Taking Sitagliptin Phosphate (Januvia), 1 TAB PO HS, (Reported) Discontinued Reason: No Longer Taking Tramadol Hcl (Tramadol Hcl), 1 TAB PO Q6 PRN for PAIN, (Reported) Discontinued Reason: No Longer Taking VTE VTE Risk Total Score: >5 VTE Risk Score VTE Risk: Score 0-1 = Low Risk (Aggressive mobilization; early ambulation; no VTE prophylaxis required) Score 2: Moderate Risk (Intermittent/Pneumatic Compression Device OR Lovenox/Heparin/Coumadin) Score 3-4: High Risk (Intermittent/Pneumatic Compression Device AND Lovenox/Heparin/Coumadin) Score > or =5: Highest Risk (Intermittent/Pneumatic Compression Device AND Lovenox/Heparin/Coumadin) Antico:Hep/LMWH/Coum/Xarelto: Yes Mechanical device ordered: Yes VTE VTE Present on Admission: No Currently receiving anticoagul: No VTE Risk Total Score: >5 Exam Vital Signs Vital Signs Date Time Temp Pulse Resp B/P (MAP) Pulse Ox O2 Delivery O2 Flow Rate FiO2 11/24/21 21:00 100 16 96 Nasal Cannula* 2 28 11/24/21 20:37 113/71 11/24/21 20:18 97.7 General Appearance: Alert, Oriented X3, Cooperative HEENT: Atraumatic, PERRLA (Left pupil dose not dilate, right pupil is equal, round, and reactive to light) Respiratory: Clear to auscultation, Normal air movement Cardiovascular: Regular rate, Normal S1, Normal S2 Abdominal: Normal bowel sounds, Soft, No tenderness Extremities: No clubbing, No cyanosis, Normal pulses, Other (She has full extension and 120 degrees of active flexion about the knee. She has mild tenderness to the anterior aspect of the knee and a 1-2+ effusion.) Skin: No rash, No breakdown, No lesions Neuro: Normal speech, Normal tone, Sensation intact, Cranial nerves 3-12 NL Psych/Mental Status: Mental status NL, Mood NL Assessment/Plan Assessment/Plan Assessment/Plan Radiology: MRI shows a tear to the posterior horn of the medial meniscus as well as severe degenerative changes about the medial and patellofemoral compartment. Assessment: Osteoarthritis of the right knee Plan: Right total knee arthroplasty Problems: (1) Body mass index [BMI] 40.0-44.9, adult Status: Chronic ICD Code: Z68.41 - Body mass index [BMI] 40.0-44.9, adult SNOMED: 372121167, [id number] (2) Diabetes Status: Chronic ICD Code: E11.9 - Type 2 diabetes mellitus without complications SNOMED: 35047285 (3) Osteoarthritis of right knee Status: Chronic ICD Code: M17.11 - Unilateral primary osteoarthritis, right knee SNOMED: 577377099264028 Patient History: Alzheimer's disease 32 MOTHER, , Age:83 Chronic obstructive pulmonary disease G8 SISTER, , Age:69 Congestive heart failure 32 MOTHER, , Age:83 G8 SISTER, , Age:69 G8 SISTER, , Age:50 Diabetes mellitus 32 MOTHER, , Age:83 G8 BROTHER, , Age:81 G8 BROTHER, , Age:65 G8 SISTER, , Age:69 G8 SISTER, , Age:50 FH: breast cancer 32 MOTHER, , Age:83 FH: seizures 19 CHILD Heart valve insufficiency G8 BROTHER, , Age:81 Hypertension 32 MOTHER, , Age:83 G8 BROTHER, , Age:81 G8 BROTHER, , Age:65 G8 SISTER, , Age:69 G8 SISTER, , Age:50 Kidney stone 19 CHILD No known health problems 33 FATHER, , Age:36 19 CHILD Parkinson's disease 32 MOTHER, , Age:83 Problem Qualifiers (1) Diabetes: Diabetes mellitus type: type 2 Diabetes mellitus prison insulin use: unspecified prison insulin use status LEAH PELLETIER Nov 24, 2021 21:54
[2021-11-24 22:23] LABS: RED CELL DISTRIBUTION WIDTH 13.7 % (11.5-14.5)
[2021-11-25] VITALS (7 sets, daily range): BP systolic 102–145; BP diastolic 52–75
[2021-11-25] MEDS ORDERED: ANCEF ONE (01:13)
[2021-11-25] MEDS ORDERED: NS 100ML 100 ML IV ONE (01:14)
[2021-11-25] MEDS: ANCEF 3 GM in NS 100ML 100 ML IV SCH ×2 (01:16→10:12)
[2021-11-25 04:40] LABS: MEAN CORP HGB 30.3 pg (26-34); RED CELL DISTRIBUTION WIDTH 13.7 % (11.5-14.5)
[2021-11-25] MEDS ORDERED: SYNTHROID ONE (04:51)
[2021-11-25] MEDS: TYLENOL PO SCH ×4 (05:22→23:52)
[2021-11-25] MEDS: SYNTHROID PO SCH (05:22)
[2021-11-25] MEDS: CYMBALTA PO SCH (08:10)
[2021-11-25] MEDS: TRICOR PO SCH (08:10)
[2021-11-25] MEDS: PROTONIX PO SCH ×2 (08:12→20:41)
[2021-11-25] MEDS: PEPCID PO SCH (08:13)
[2021-11-25] MEDS: COLACE PO SCH (08:13)
[2021-11-25 08:30] LABS: CARBON DIOXIDE 28.6 mmol/L (20.0-32)
[2021-11-25] MEDS ORDERED: DEXTROSE 50%-WATER SYRINGE IV PRN (08:30)
[2021-11-25] MEDS ORDERED: D5W 1000ML 1,000 ML IV PRN (08:30)
[2021-11-25] MEDS: NEURONTIN PO SCH ×2 (08:45→20:41)
[2021-11-25] MEDS: RESTASIS OP SCH ×2 (08:45→20:42)
--- NOTE | 2021-11-25 08:45 | DIREP ---
PROCEDURE:XRAY KNEE 2 VWS-RT COMPARISON:None. INDICATIONS:POST OP RT TOTAL KNEE AND ORIF RT TIBIA FINDINGS: BONES:Total knee arthroplasty. There are multiple screws in the proximal tibia. No visible dislocation. JOINTS:Small joint effusion and small amount of intra-articular gas. SOFT TISSUES:Anterior skin srinivasan. OTHER:No additional findings. CONCLUSION:Changes of recent knee arthroplasty. Dictated by: Jose Mason M.D. on 11/25/2021 at 08:40 AM
--- NOTE | 2021-11-25 08:47 | PRM.PN ---
Subjective Subjective Date: Nov 25, 2021 Time: 08:45 Subjective Awake and alert Pain ok Complains of itching VSS NVM+ HGB10.5 post op anemia from acute surgical blood loss expected Start PT Non weight bearing for 6 weeks Patient History: Alzheimer's disease 32 MOTHER, , Age:83 Chronic obstructive pulmonary disease G8 SISTER, , Age:69 Congestive heart failure 32 MOTHER, , Age:83 G8 SISTER, , Age:69 G8 SISTER, , Age:50 Diabetes mellitus 32 MOTHER, , Age:83 G8 BROTHER, , Age:81 G8 BROTHER, , Age:65 G8 SISTER, , Age:69 G8 SISTER, , Age:50 FH: breast cancer 32 MOTHER, , Age:83 FH: seizures 19 CHILD Heart valve insufficiency G8 BROTHER, , Age:81 Hypertension 32 MOTHER, , Age:83 G8 BROTHER, , Age:81 G8 BROTHER, , Age:65 G8 SISTER, , Age:69 G8 SISTER, , Age:50 Kidney stone 19 CHILD No known health problems 33 FATHER, , Age:36 19 CHILD Parkinson's disease 32 MOTHER, , Age:83 VTE VTE Risk Total Score: >5 VTE Risk Score VTE Risk: Score 0-1 = Low Risk (Aggressive mobilization; early ambulation; no VTE prophylaxis required) Score 2: Moderate Risk (Intermittent/Pneumatic Compression Device OR Lovenox/Heparin/Coumadin) Score 3-4: High Risk (Intermittent/Pneumatic Compression Device AND Lovenox/Heparin/Coumadin) Score > or =5: Highest Risk (Intermittent/Pneumatic Compression Device AND Lovenox/Heparin/Coumadin) Antico:Hep/LMWH/Coum/Xarelto: Yes Mechanical device ordered: Yes Review of Systems Constitutional: No: Fever, Chills, Sweats, Weakness, Malaise, Other Eyes: No: Pain, Vision change, Conjunctivae inflammation, Eyelid inflammation, Other, Redness ENT: No: Ear pain, Ear discharge, Nose pain, Nose discharge, Nose congestion, Mouth pain, Mouth swelling, Throat pain, Throat swelling, Other Respiratory: No: Cough, Dry, Shortness of breath, SOB with excertion, Wheezing, Hemoptysis, Pleuritic Pain, Sputum, Wheezing, Other Cardiovascular: No: Chest Pain, Palpitations, Orthopnea, Paroxysmal Noc. Dyspnea, Edema, Lt Headedness, Other Gastrointestinal: No: Nausea, Vomiting, Abdominal Pain, Diarrhea, Constipation, Melena, Hematochezia, Other Genitourinary: No Dysuria, No Frequency, No Incontinence, No Hematuria, No Retention, No Other Musculoskeletal: leg pain (R knee pain) Skin: No: Rash, Lesions, Jaundice, Bruising, Other Neurological: No: Weakness, Numbness, Incoordination, Change in speech, Confusion, Seizures, Other Allergies: Coded Allergies: shellfish derived (Verified Allergy, Severe, ELEVATED BP, HYPERVENTALATION, 04/12/20) codeine (Verified Allergy, Unknown, ITCHING, 04/12/20) Scheduled Acebutolol Hcl (Acebutolol Hcl), 200 MG PO BID, (Reported) Albuterol Sulfate (Albuterol Sulfate), 1 VIAL NEB BID, (Reported) Aspirin (Aspir 81), 1 TAB PO DAILY, (Reported) Atorvastatin 80MG (Lipitor 80MG), 1 TAB PO HS, (Reported) Celecoxib (Celebrex), 1 CAP PO HS, (Reported) Cyanocobalamin (Vitamin B-12) (Cyanocobalamin Injection), 1,000 MCG IJ EVERY 14 DAYS, (Reported) Cyclosporine (Restasis), 1 DROP OP BID, (Reported) Dulaglutide (Trulicity), 1.5 MG SQ Q7D, (Reported) Duloxetine Hcl (Cymbalta), 1 CAP PO DAILY, (Reported) Fenofibrate (Lipofen), 150 MG PO HS, (Reported) Fluticasone/Umeclidin/Vilanter (Trelegy Ellipta 100-62.5-25), 1 PUFF IH DAILY24, (Reported) Gabapentin (Gabapentin), 1 TAB PO BID, (Reported) Insulin Glargine,Hum.rec.anlog (Lantus Solostar), 70 UNITS SQ BID, (Reported) Insulin Lispro (Humalog), Unknown Dose SQ TIDM, (Reported) Levothyroxine Sodium (Levothyroxine Sodium), 1 TAB PO DAILY, (Reported) Montelukast Sodium (Singulair), 1 TAB PO HS, (Reported) Pantoprazole Sodium (Pantoprazole Sodium), 1 TAB PO BID, (Reported) Valsartan/Hydrochlorothiazide (Diovan Hct 160-25 Mg Tablet), 1 TAB PO DAILY, (Reported) Scheduled PRN Albuterol Sulfate (Proair Hfa), 1 PUFF IH Q4 PRN for SHORTNESS OF BREATH, (Reported) Benzonatate (Benzonatate), 1 CAP PO TIWP PRN for cough, (Reported) Nitroglycerin (Nitroglycerin), 1 TAB SL PRN PRN for CHEST PAIN, (Reported) Discontinued Medications Atorvastatin 40MG (Lipitor 40MG), 1 TAB PO HS, (Reported) Discontinued Reason: No Longer Taking Buprenorphine (Butrans), 1 EACH TD Q7D, (Reported) Discontinued Reason: No Longer Taking Clobetasol Propionate (Clobetasol Propionate), 1 APPLIC TP BID PRN for ITCHING, (Reported) Discontinued Reason: No Longer Taking Desvenlafaxine Succinate (Pristiq Er), 1 TAB PO DAILY, (Reported) Discontinued Reason: No Longer Taking Exenatide Microspheres (Bydureon Pen), 2 MG SQ Q7D, (Reported) Discontinued Reason: No Longer Taking Gabapentin (Gabapentin), 300 CAP PO BID, (Reported) Discontinued Reason: No Longer Taking Glimepiride (Glimepiride), 1 TAB PO BID, (Reported) Discontinued Reason: No Longer Taking Insulin Lispro (Humalog), 5 UNIT SQ TIDM, (Reported) Discontinued Reason: No Longer Taking Ulm-3S/Dha/Epa/Fish Oil (Fish Oil 1,200 mg Softgel), 2 EACH PO BID, (Reported) Discontinued Reason: No Longer Taking Omeprazole (Omeprazole), 1 CAP PO BID, (Reported) Discontinued Reason: No Longer Taking Sitagliptin Phosphate (Januvia), 1 TAB PO HS, (Reported) Discontinued Reason: No Longer Taking Tramadol Hcl (Tramadol Hcl), 1 TAB PO Q6 PRN for PAIN, (Reported) Discontinued Reason: No Longer Taking Objective Vitals and I/O Vital Sign - Last 24 Hours 11/24/21 11/24/21 11/24/21 11/24/21 09:05 09:05 13:18 15:24 Temp 98.5 98.3 98.8 Pulse 86 106 Resp 16 16 B/P (MAP) 143/84 (103) 132/82 (99) Pulse Ox 98 O2 Delivery Room Air Room Air Nasal [place] O2 Flow Rate 2.00 11/24/21 11/24/21 11/24/21 11/24/21 15:24 15:30 15:40 15:50 Pulse 97 97 100 Resp 16 16 16 B/P (MAP) 137/84 (101) 140/62 (88) 160/84 (109) Pulse Ox 97 97 97 O2 Delivery Nasal Canula Nasal Canula Room Air O2 Flow Rate 2.00 2.00 2.00 11/24/21 11/24/21 11/24/21 11/24/21 16:00 16:30 16:30 17:59 Temp 97.7 98.1 Pulse 93 95 Resp 16 18 B/P (MAP) 157/74 (101) 135/88 (104) Pulse Ox 94 91 92 O2 Delivery Room Air Nasal Cannula* Nasal Cannula Nasal Cannula* O2 Flow Rate 1 1.50 2 FiO2 24 28 11/24/21 11/24/21 11/24/21 11/24/21 17:59 19:38 20:18 20:37 Temp 97.7 Pulse 106 106 Resp 16 16 B/P (MAP) 113/71 (85) 113/71 Pulse Ox 96 94 O2 Delivery Nasal Cannula Nasal Cannula* O2 Flow Rate 1.50 1 FiO2 24 11/24/21 11/25/21 11/25/21 11/25/21 21:00 01:04 05:27 07:04 Temp 98.3 98.2 98.8 Pulse 100 93 90 89 Resp 16 18 19 18 B/P (MAP) 102/75 (84) 104/57 (73) 106/52 (70) Pulse Ox 96 97 97 96 O2 Delivery Nasal Cannula* Nasal Cannula* Nasal Cannula* Room Air* O2 Flow Rate 2 2 2 0 FiO2 28 28 28 21 11/25/21 11/25/21 08:16 08:27 Pulse 88 Resp 16 B/P (MAP) 106/52 Pulse Ox 96 O2 Delivery Nasal Cannula* O2 Flow Rate 1 FiO2 24 Intake and Output 11/25/21 07:00 Intake Total 2620 ml Output Total 2100 ml Balance 520 ml General: Alert, Oriented X3, Cooperative HEENT: Atraumatic, PERRLA (Left pupil dose not dilate, right pupil is equal, round, and reactive to light) Lungs: Clear to auscultation, Normal air movement Heart: Regular rate, Normal S1, Normal S2 Abdomen: Normal bowel sounds, Soft, No tenderness Extremities: No clubbing, No cyanosis, Normal pulses, Other (She has full extension and 120 degrees of active flexion about the knee. She has mild tenderness to the anterior aspect of the knee and a 1-2+ effusion.) Neuro: Normal speech, Normal tone, Sensation intact, Cranial nerves 3-12 NL Psych/Mental Status: Mental status NL, Mood NL All Results(Lab/Rad) Laboratory Tests Test 11/24/21 16:01 11/24/21 20:42 11/24/21 22:07 11/25/21 04:17 Bedside Glucose 147 240 White Blood Count 14.5 10^3/uL 12.5 10^3/uL Red Blood Count 3.80 10^6/uL 3.47 10^6/uL Hemoglobin 11.4 g/dL 10.5 g/dL Hematocrit 35.8 % 32.6 % Mean Corpuscular Volume 94.2 fL 93.9 fL Mean Corpuscular Hemoglobin 30.0 pg 30.3 pg Mean Corpuscular Hemoglobin Concent 31.8 g/dL 32.2 g/dL Red Cell Distribution Width 13.7 % 13.7 % Platelet Count 291 10^3/uL 270 10^3/uL Mean Platelet Volume 9.3 fL 9.2 fL Sodium Level 142 mmol/L Potassium Level 3.8 mmol/L Chloride Level 105.0 mmol/L Carbon Dioxide Level 28.6 mmol/L Glucose Level 124 mg/dL Blood Urea Nitrogen 17 mg/dL Creatinine 1.12 mg/dL Calcium Level 8.4 mg/dL Anion Gap 12.2 Estimated GFR () 57.7 Est GFR (CKD-EPI)(Non-Afr Swiss) 47.7 BUN/Creatinine Ratio 15.0 Current Medications Medications (Trade) Dose Ordered Sig/Dayanna Route PRN Reason Start Time Stop Time Status Last Admin Dose Admin Sodium Chloride 1,000 ml @ 100 mls/hr Q10H IV 11/24/21 06:00 11/25/21 00:04 DC 11/24/21 09:36 Cefazolin Sodium 3 gm/Sodium Chloride 100 ml @ 100 mls/hr OT ONCE IV 11/24/21 06:00 11/24/21 09:31 DC 11/24/21 12:19 Mupirocin (Bactroban Ointment) 1 gm OT ONCE TP 11/24/21 06:00 11/24/21 09:31 DC 11/24/21 09:34 Gabapentin (Neurontin) 600 mg OT ONCE PO 11/24/21 06:00 11/24/21 09:47 DC Tramadol HCl (Ultram) 50 mg OT ONCE PO 11/24/21 06:00 11/24/21 09:47 DC Acetaminophen (Ofirmev) 500 mg OT ONCE IV 11/24/21 06:00 11/24/21 09:31 DC 11/24/21 09:44 Sodium Chloride 100 ml @ ud STK-MED ONCE IV 11/24/21 05:53 11/24/21 05:54 DC Cefazolin Sodium (Ancef) 1 gm STK-MED ONCE .ROUTE 11/24/21 05:54 11/24/21 05:54 DC Cefazolin Sodium (Ancef) 2 gm STK-MED ONCE .ROUTE 11/24/21 05:54 11/24/21 05:55 DC Scopolamine (Transderm-Scop) 1 each OT ONCE TD 11/24/21 09:30 11/24/21 10:41 DC 11/24/21 09:44 Acetaminophen 100 ml @ ud STK-MED ONCE IV 11/24/21 09:40 11/24/21 09:40 DC Gabapentin (Neurontin) 300 mg STK-MED ONCE .ROUTE 11/24/21 09:40 11/24/21 09:40 DC Tramadol HCl (Ultram) 50 mg STK-MED ONCE .ROUTE 11/24/21 09:40 11/24/21 09:41 DC Tramadol HCl (Ultram) 100 mg OT ONCE PO 11/24/21 09:45 11/24/21 10:41 DC 11/24/21 09:50 Gabapentin (Neurontin) 300 mg OT ONCE PO 11/24/21 09:45 11/24/21 09:49 DC Gabapentin (Neurontin) 600 mg OT ONCE PO 11/24/21 09:45 11/24/21 10:41 DC 11/24/21 09:51 Tramadol HCl (Ultram) 50 mg Q6H PRN PO PAIN 1 - 3 11/24/21 10:30 12/24/21 10:29 Tramadol HCl (Ultram) 100 mg Q6H PRN PO PAIN 4 - 6 11/24/21 10:30 12/24/21 10:29 Rivaroxaban (Xarelto) 10 mg DAILY PO 11/25/21 09:00 11/24/21 21:46 DC Docusate Sodium (Colace) 100 mg DAILY PO 11/25/21 09:00 12/25/21 08:59 11/25/21 08:13 Throat Lozenges (Cepacol Sore Throat Lozenge) 1 each PRN PRN MM SORE THROAT 11/24/21 10:30 12/24/21 10:29 Famotidine (Pepcid) 20 mg DAILY PO 11/25/21 09:00 12/25/21 08:59 11/25/21 08:13 Ketorolac Tromethamine (Toradol) 15 mg Q6H PRN IV PAIN 7 - 10 11/24/21 10:30 11/29/21 10:29 Ondansetron HCl (Zofran) 4 mg Q4H PRN IV NAUSEA / VOMITING 11/24/21 10:30 12/24/21 10:29 Cefazolin Sodium 3 gm/Sodium Chloride 100 ml @ 100 mls/hr Q8H IV 11/24/21 18:00 11/25/21 10:59 11/25/21 01:16 Acetaminophen (Tylenol) 1,000 mg Q6HR PO 11/24/21 12:00 12/24/21 11:59 11/25/21 05:22 Acebutolol HCl (Sectral) 200 mg BID PO 11/24/21 21:00 12/24/21 20:59 Atorvastatin Calcium (Lipitor) 80 mg HS PO 11/24/21 21:00 12/24/21 20:59 11/24/21 20:36 Cyclosporine (Restasis) 1 drops BID OP 11/24/21 21:00 12/24/21 20:59 Gabapentin (Neurontin) 600 mg BID PO 11/24/21 21:00 12/24/21 20:59 11/24/21 20:36 Levothyroxine Sodium (Synthroid) 100 mcg ACB PO 11/25/21 06:30 12/25/21 06:29 11/25/21 05:22 Montelukast Sodium (Singulair) 10 mg HS PO 11/24/21 21:00 12/24/21 20:59 11/24/21 20:37 Pantoprazole Sodium (Protonix) 40 mg BID PO 11/24/21 21:00 12/24/21 20:59 11/25/21 08:12 Duloxetine HCl (Cymbalta) 60 mg DAILY PO 11/25/21 09:00 12/25/21 08:59 11/25/21 08:10 Fenofibrate (Tricor) 145 mg DAILY PO 11/25/21 09:00 12/25/21 08:59 11/25/21 08:10 Hydrochlorothiazide (Hydrochlorothiazide) 25 mg DAILY PO 11/25/21 09:00 12/25/21 08:59 Sodium Chloride (Sodium Chloride Irr Bottle) 1,000 ml STK-MED ONCE IR 11/24/21 11:14 11/24/21 11:14 DC Sterile Water (Water) 1,000 ml STK-MED ONCE .ROUTE 11/24/21 11:14 11/24/21 11:14 DC Sodium Chloride 250 ml @ ud STK-MED ONCE .ROUTE 11/24/21 11:14 11/24/21 11:14 DC Sodium Chloride (NS 3000ml Irr) 3,000 ml STK-MED ONCE IR 11/24/21 11:14 11/24/21 11:14 DC Bupivacaine HCl (Sensorcaine-Mpf 0.25% Vial) 2.5 mg STK-MED ONCE .ROUTE 11/24/21 12:18 11/24/21 12:18 DC Bupivacaine HCl (Marcaine 0.5%) 1 ml STK-MED ONCE .ROUTE 11/24/21 12:18 11/24/21 12:19 DC Ondansetron HCl (Zofran) 4 mg STK-MED ONCE .ROUTE 11/24/21 12:20 11/24/21 12:20 DC Tranexamic Acid (Tranexamic Acid) 1,000 mg STK-MED ONCE .ROUTE 11/24/21 12:20 11/24/21 12:21 DC Propofol 100 ml @ ud STK-MED ONCE IV 11/24/21 12:20 11/24/21 12:21 DC Morphine Sulfate (Duramorph) 10 mg STK-MED ONCE .ROUTE 11/24/21 12:20 11/24/21 12:21 DC Tranexamic Acid (Tranexamic Acid) 1,000 mg STK-MED ONCE .ROUTE 11/24/21 15:31 11/24/21 15:31 DC Diphenhydramine HCl (Benadryl) 50 mg STK-MED ONCE .ROUTE 11/24/21 15:31 11/24/21 15:31 DC Rivaroxaban (Xarelto) 10 mg DAILY PO 11/25/21 16:00 12/25/21 15:59 Cefazolin Sodium (Ancef) 1 gm STK-MED ONCE .ROUTE 11/25/21 01:13 11/25/21 01:13 DC Sodium Chloride 100 ml @ ud STK-MED ONCE IV 11/25/21 01:14 11/25/21 01:14 DC Levothyroxine Sodium (Synthroid) 100 mcg STK-MED ONCE .ROUTE 11/25/21 04:51 11/25/21 04:51 DC Dextrose 1,000 ml @ 100 mls/hr Q10H PRN IV HYPOGLYCEMIA 11/25/21 08:30 12/25/21 08:29 UNV Dextrose (Dextrose 50%-Water Syringe) 25 ml PRN PRN IV HYPOGLYCEMIA 11/25/21 08:30 12/25/21 08:29 UNV Insulin Human Regular (Humulin R) ACHS SQ 11/25/21 11:30 12/25/21 11:29 UNV Course Sepsis Screening Results: Posi: POSITIVE Sepsis Qualifier/Stage: SEPSIS RISK Vitals & review Data Vital Sign - Last 24 Hours 11/24/21 11/24/21 11/24/21 11/24/21 09:05 09:05 13:18 15:24 Temp 98.5 98.3 98.8 Pulse 86 106 Resp 16 16 B/P (MAP) 143/84 (103) 132/82 (99) Pulse Ox 98 O2 Delivery Room Air Room Air Nasal Can[place] O2 Flow Rate 2.00 11/24/21 11/24/21 11/24/21 11/24/21 15:24 15:30 15:40 15:50 Pulse 97 97 100 Resp 16 16 16 B/P (MAP) 137/84 (101) 140/62 (88) 160/84 (109) Pulse Ox 97 97 97 O2 Delivery Nasal Canula Nasal Canula Room Air O2 Flow Rate 2.00 2.00 2.00 11/24/21 11/24/21 11/24/21 11/24/21 16:00 16:30 16:30 17:59 Temp 97.7 98.1 Pulse 93 95 Resp 16 18 B/P (MAP) 157/74 (101) 135/88 (104) Pulse Ox 94 91 92 O2 Delivery Room Air Nasal Cannula* Nasal Cannula Nasal Cannula* O2 Flow Rate 1 1.50 2 FiO2 24 11/24/21 11/24/21 11/24/21 11/24/21 17:59 19:38 20:18 20:37 Temp 97.7 Pulse 106 106 Resp 16 16 B/P (MAP) 113/71 (85) 113/71 Pulse Ox 96 94 O2 Delivery Nasal Cannula Nasal Cannula* O2 Flow Rate 1.50 1 FiO2 24 11/24/21 11/25/21 11/25/21 11/25/21 21:00 01:04 05:27 07:04 Temp 98.3 98.2 98.8 Pulse 100 93 90 89 Resp 16 18 19 18 B/P (MAP) 102/75 (84) 104/57 (73) 106/52 (70) Pulse Ox 96 97 97 96 O2 Delivery Nasal Cannula* Nasal Cannula* Nasal Cannula* Room Air* O2 Flow Rate 2 2 2 0 FiO2 28 11/25/21 11/25/21 08:16 08:27 Pulse 88 Resp 16 B/P (MAP) 106/52 Pulse Ox 96 O2 Delivery Nasal Cannula* O2 Flow Rate 1 FiO2 24 Intake and Output 11/25/21 07:00 Intake Total 2620 ml Output Total 2100 ml Balance 520 ml Laboratory Tests Test 11/24/21 16:01 11/24/21 20:42 11/24/21 22:07 11/25/21 04:17 Bedside Glucose 147 240 White Blood Count 14.5 10^3/uL 12.5 10^3/uL Red Blood Count 3.80 10^6/uL 3.47 10^6/uL Hemoglobin 11.4 g/dL 10.5 g/dL Hematocrit 35.8 % 32.6 % Mean Corpuscular Volume 94.2 fL 93.9 fL Mean Corpuscular Hemoglobin 30.0 pg 30.3 pg Mean Corpuscular Hemoglobin Concent 31.8 g/dL 32.2 g/dL Red Cell Distribution Width 13.7 % 13.7 % Platelet Count 291 10^3/uL 270 10^3/uL Mean Platelet Volume 9.3 fL 9.2 fL Sodium Level 142 mmol/L Potassium Level 3.8 mmol/L Chloride Level 105.0 mmol/L Carbon Dioxide Level 28.6 mmol/L Glucose Level 124 mg/dL Blood Urea Nitrogen 17 mg/dL Creatinine 1.12 mg/dL Calcium Level 8.4 mg/dL Anion Gap 12.2 Estimated GFR () 57.7 Est GFR (CKD-EPI)(Non-Afr Swiss) 47.7 BUN/Creatinine Ratio 15.0 Current Medications Medications (Trade) Dose Ordered Sig/Dayanna PRN Reason Start Time Stop Time Status Last Admin Acebutolol HCl (Sectral) 200 mg BID 11/24/21 21:00 12/24/21 20:59 Acetaminophen (Tylenol) 1,000 mg Q6HR 11/24/21 12:00 12/24/21 11:59 11/25/21 05:22 Atorvastatin Calcium (Lipitor) 80 mg HS 11/24/21 21:00 12/24/21 20:59 11/24/21 20:36 Cefazolin Sodium 3 gm/Sodium Chloride 100 ml @ 100 mls/hr Q8H 11/24/21 18:00 11/25/21 10:59 11/25/21 01:16 Cyclosporine (Restasis) 1 drops BID 11/24/21 21:00 12/24/21 20:59 Dextrose 1,000 ml @ 100 mls/hr Q10H PRN HYPOGLYCEMIA 11/25/21 08:30 12/25/21 08:29 UNV Dextrose (Dextrose 50%-Water Syringe) 25 ml PRN PRN HYPOGLYCEMIA 11/25/21 08:30 12/25/21 08:29 UNV Docusate Sodium (Colace) 100 mg DAILY 11/25/21 09:00 12/25/21 08:59 11/25/21 08:13 Duloxetine HCl (Cymbalta) 60 mg DAILY 11/25/21 09:00 12/25/21 08:59 11/25/21 08:10 Famotidine (Pepcid) 20 mg DAILY 11/25/21 09:00 12/25/21 08:59 11/25/21 08:13 Fenofibrate (Tricor) 145 mg DAILY 11/25/21 09:00 12/25/21 08:59 11/25/21 08:10 Gabapentin (Neurontin) 600 mg BID 11/24/21 21:00 12/24/21 20:59 11/24/21 20:36 Hydrochlorothiazide (Hydrochlorothiazide) 25 mg DAILY 11/25/21 09:00 12/25/21 08:59 Insulin Human Regular (Humulin R) ACHS 11/25/21 11:30 12/25/21 11:29 UNV Ketorolac Tromethamine (Toradol) 15 mg Q6H PRN PAIN 7 - 10 11/24/21 10:30 11/29/21 10:29 Levothyroxine Sodium (Synthroid) 100 mcg ACB 11/25/21 06:30 12/25/21 06:29 11/25/21 05:22 Montelukast Sodium (Singulair) 10 mg HS 11/24/21 21:00 12/24/21 20:59 11/24/21 20:37 Ondansetron HCl (Zofran) 4 mg Q4H PRN NAUSEA / VOMITING 11/24/21 10:30 12/24/21 10:29 Pantoprazole Sodium (Protonix) 40 mg BID 11/24/21 21:00 12/24/21 20:59 11/25/21 08:12 Rivaroxaban (Xarelto) 10 mg DAILY 11/25/21 16:00 12/25/21 15:59 Throat Lozenges (Cepacol Sore Throat Lozenge) 1 each PRN PRN SORE THROAT 11/24/21 10:30 12/24/21 10:29 Tramadol HCl (Ultram) 50 mg Q6H PRN PAIN 1 - 3 11/24/21 10:30 12/24/21 10:29 Tramadol HCl (Ultram) 100 mg Q6H PRN PAIN 4 - 6 11/24/21 10:30 12/24/21 10:29 LEVEL 1 SEPSIS INFECTION CRITE: ABX Therapy, Recent Invasive Procedure Respiratory Evidence: Need for O2 to keep>90%, O2 SAT<90room air O2 Sat by Pulse Oximetry: 96 Oxygen Flow Rate: 1.50 Assessment/Plan Assessment/Plan Assessment/Plan Radiology: MRI shows a tear to the posterior horn of the medial meniscus as well as severe degenerative changes about the medial and patellofemoral compartment. Assessment: Osteoarthritis of the right knee Plan: Right total knee arthroplasty IBAN BANEGAS MD Nov 25, 2021 08:47
[2021-11-25] MEDS: SECTRAL PO SCH ×2 (09:00→20:42)
[2021-11-25] MEDS ORDERED: XARELTO PO SCH (09:00)
[2021-11-25] MEDS ORDERED: HYDROCHLOROTHIAZIDE PO SCH (09:00)
[2021-11-25] MEDS ORDERED: BENADRYL PO PRN (09:30)
[2021-11-25] MEDS: TRELEGY ELLIPTA 100-62.5-25 IH SCH (10:13)
[2021-11-25] MEDS: ULTRAM PO PRN (10:45)
[2021-11-25] MEDS: TORADOL IV PRN ×2 (11:00→18:08)
[2021-11-25] MEDS: VALIUM PO PRN ×2 (11:15→11:22)
[2021-11-25] MEDS: BENADRYL PO PRN ×2 (11:21→18:07)
--- NOTE | 2021-11-25 11:23 | PRM.CONS ---
Consultation Reason for Consult: Reason for Consultation: Medical management History of Present Illness History of Patient Comments 71 year old female presents with complaints of right knee pain for the past 2 months. She has a known history of advanced OA to the right knee. 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 Today patient is postoperative day 1. Other than postoperative pain no complaints no shortness of breath no chest pain. Vitals & Lab Vital Signs Date Time Temp Pulse Resp B/P (MAP) Pulse Ox O2 Delivery O2 Flow Rate FiO2 11/25/21 09:00 88 106/52 11/25/21 08:27 16 96 Nasal Cannula* 1 24 11/25/21 07:04 98.8 Head and neck normocephalic atraumatic Neck is supple Chest fair bilateral air entry Heart S1-S2 regular Abdomen soft nontender Neuro awake alert moving extremities Musculoskeletal, knee, postoperative Review of Systems Constitutional: No: Fever, Chills, Sweats, Weakness, Malaise, Other Eyes: No: Pain, Vision change, Conjunctivae inflammation, Eyelid inflammation, Other, Redness ENT: No: Ear pain, Ear discharge, Nose pain, Nose discharge, Nose congestion, Mouth pain, Mouth swelling, Throat pain, Throat swelling, Other Respiratory: No: Cough, Dry, Shortness of breath, SOB with excertion, Wheezing, Hemoptysis, Pleuritic Pain, Sputum, Wheezing, Other Cardiovascular: No: Chest Pain, Palpitations, Orthopnea, Paroxysmal Noc. Dyspnea, Edema, Lt Headedness, Other Gastrointestinal: No: Nausea, Vomiting, Abdominal Pain, Diarrhea, Constipation, Melena, Hematochezia, Other Genitourinary: No Dysuria, No Frequency, No Incontinence, No Hematuria, No Retention, No Other Musculoskeletal: leg pain (R knee pain) Skin: No: Rash, Lesions, Jaundice, Bruising, Other Neurological: No: Weakness, Numbness, Incoordination, Change in speech, Confusion, Seizures, Other Allergies: Coded Allergies: shellfish derived (Verified Allergy, Severe, ELEVATED BP, HYPERVENTALATION, 04/12/20) codeine (Verified Allergy, Unknown, ITCHING, 04/12/20) Scheduled Acebutolol Hcl (Acebutolol Hcl), 200 MG PO BID, (Reported) Albuterol Sulfate (Albuterol Sulfate), 1 VIAL NEB BID, (Reported) Aspirin (Aspir 81), 1 TAB PO DAILY, (Reported) Atorvastatin 80MG (Lipitor 80MG), 1 TAB PO HS, (Reported) Celecoxib (Celebrex), 1 CAP PO HS, (Reported) Cyanocobalamin (Vitamin B-12) (Cyanocobalamin Injection), 1,000 MCG IJ EVERY 14 DAYS, (Reported) Cyclosporine (Restasis), 1 DROP OP BID, (Reported) Dulaglutide (Trulicity), 1.5 MG SQ Q7D, (Reported) Duloxetine Hcl (Cymbalta), 1 CAP PO DAILY, (Reported) Fenofibrate (Lipofen), 150 MG PO HS, (Reported) Fluticasone/Umeclidin/Vilanter (Trelegy Ellipta 100-62.5-25), 1 PUFF IH DAILY24, (Reported) Gabapentin (Gabapentin), 1 TAB PO BID, (Reported) Insulin Glargine,Hum.rec.anlog (Lantus Solostar), 70 UNITS SQ BID, (Reported) Insulin Lispro (Humalog), Unknown Dose SQ TIDM, (Reported) Levothyroxine Sodium (Levothyroxine Sodium), 1 TAB PO DAILY, (Reported) Montelukast Sodium (Singulair), 1 TAB PO HS, (Reported) Pantoprazole Sodium (Pantoprazole Sodium), 1 TAB PO BID, (Reported) Valsartan/Hydrochlorothiazide (Diovan Hct 160-25 Mg Tablet), 1 TAB PO DAILY, (Reported) Scheduled PRN Albuterol Sulfate (Proair Hfa), 1 PUFF IH Q4 PRN for SHORTNESS OF BREATH, (Reported) Benzonatate (Benzonatate), 1 CAP PO TIWP PRN for cough, (Reported) Nitroglycerin (Nitroglycerin), 1 TAB SL PRN PRN for CHEST PAIN, (Reported) Discontinued Medications Atorvastatin 40MG (Lipitor 40MG), 1 TAB PO HS, (Reported) Discontinued Reason: No Longer Taking Buprenorphine (Butrans), 1 EACH TD Q7D, (Reported) Discontinued Reason: No Longer Taking Clobetasol Propionate (Clobetasol Propionate), 1 APPLIC TP BID PRN for ITCHING, (Reported) Discontinued Reason: No Longer Taking Desvenlafaxine Succinate (Pristiq Er), 1 TAB PO DAILY, (Reported) Discontinued Reason: No Longer Taking Exenatide Microspheres (Bydureon Pen), 2 MG SQ Q7D, (Reported) Discontinued Reason: No Longer Taking Gabapentin (Gabapentin), 300 CAP PO BID, (Reported) Discontinued Reason: No Longer Taking Glimepiride (Glimepiride), 1 TAB PO BID, (Reported) Discontinued Reason: No Longer Taking Insulin Lispro (Humalog), 5 UNIT SQ TIDM, (Reported) Discontinued Reason: No Longer Taking [place]-3S/Dha/Epa/Fish Oil (Fish Oil 1,200 mg Softgel), 2 EACH PO BID, (Reported) Discontinued Reason: No Longer Taking Omeprazole (Omeprazole), 1 CAP PO BID, (Reported) Discontinued Reason: No Longer Taking Sitagliptin Phosphate (Januvia), 1 TAB PO HS, (Reported) Discontinued Reason: No Longer Taking Tramadol Hcl (Tramadol Hcl), 1 TAB PO Q6 PRN for PAIN, (Reported) Discontinued Reason: No Longer Taking VTE VTE Risk Total Score: >5 VTE Risk Score VTE Risk: Score 0-1 = Low Risk (Aggressive mobilization; early ambulation; no VTE prophylaxis required) Score 2: Moderate Risk (Intermittent/Pneumatic Compression Device OR Lovenox/Heparin/Coumadin) Score 3-4: High Risk (Intermittent/Pneumatic Compression Device AND Lovenox/Heparin/Coumadin) Score > or =5: Highest Risk (Intermittent/Pneumatic Compression Device AND Lovenox/Heparin/Coumadin) Antico:Hep/LMWH/Coum/Xarelto: Yes Mechanical device ordered: Yes Assessment/Plan Assessment/Plan Assessment/Plan Plan Will review and continue home meds Will place the patient SSI, patient at home takes 70 units of long-acting insulin twice a day, Patient does not need this dose during hospital stay due to change in diet. We will continue to monitor blood glucose sliding scale with short acting coverage today and reassess in a.m. Continue levothyroxine Continue bronchodilators DVT prophylaxis as per Ortho Thank you for consulting us we will follow the patient with you Problems: (1) Osteoarthritis of right knee Status: Chronic ICD Code: M17.11 - Unilateral primary osteoarthritis, right knee SNOMED: 401954858996635 (2) Hypothyroidism ICD Code: E03.9 - Hypothyroidism, unspecified SNOMED: 17437633 (3) Hypertension ICD Code: I10 - Essential (primary) hypertension SNOMED: 33748756 (4) Diabetes Status: Chronic ICD Code: E11.9 - Type 2 diabetes mellitus without complications SNOMED: 46928431 (5) CAD (coronary artery disease) ICD Code: I25.10 - Atherosclerotic heart disease of [place] coronary artery without angina pectoris SNOMED: 57439887 (6) Asthma ICD Code: J45.909 - Unspecified asthma, uncomplicated SNOMED: 441357483 Patient History: Alzheimer's disease 32 MOTHER, , Age:83 Chronic obstructive pulmonary disease G8 SISTER, , Age:69 Congestive heart failure 32 MOTHER, , Age:83 G8 SISTER, , Age:69 G8 SISTER, , Age:50 Diabetes mellitus 32 MOTHER, , Age:83 G8 BROTHER, , Age:81 G8 BROTHER, , Age:65 G8 SISTER, , Age:69 G8 SISTER, , Age:50 FH: breast cancer 32 MOTHER, , Age:83 FH: seizures 19 CHILD Heart valve insufficiency G8 BROTHER, , Age:81 Hypertension 32 MOTHER, , Age:83 G8 BROTHER, , Age:81 G8 BROTHER, , Age:65 G8 SISTER, , Age:69 G8 SISTER, , Age:50 Kidney stone 19 CHILD No known health problems 33 FATHER, , Age:36 19 CHILD Parkinson's disease 32 MOTHER, , Age:83 Problem Qualifiers (1) Diabetes: Diabetes mellitus type: type 2 Diabetes mellitus jail insulin use: unspecified jail insulin use status LUIS FERNANDO LOPEZ MD Nov 25, 2021 11:23
[2021-11-25] MEDS: HUMULIN R SQ SCH ×3 (11:26→21:18)
[2021-11-25] MEDS ORDERED: VENTOLIN HFA IH PRN (11:30)
--- NOTE | 2021-11-25 15:37 | NUR ---
PT brought in home med Diovan; Pharmacy called at this time for assistance entering order so PT can receive own med; waiting for call back from pharmacist.
[2021-11-25] MEDS: XARELTO PO SCH (16:13)
--- NOTE | 2021-11-25 18:50 | NUR ---
Pharmacist has not returned call for assistance entering PT medication order, has left for the day; Report given to oncoming nurse; care relinquished at this time
[2021-11-25] MEDS: SINGULAIR PO SCH (20:41)
[2021-11-25] MEDS: LIPITOR PO SCH (20:41)
--- NOTE | 2021-11-26 03:13 | NUR ---
Telemetry DC'd per protocol. No cardiac events in 24 hours
[2021-11-26 04:10] VITALS: BP 128/62
[2021-11-26 04:51] LABS: MEAN CORP HGB 29.9 pg (26-34); RED CELL DISTRIBUTION WIDTH 13.7 % (11.5-14.5)
[2021-11-26] MEDS: TYLENOL PO SCH ×3 (05:30→12:26)
[2021-11-26] MEDS: SYNTHROID PO SCH (05:30)
[2021-11-26 07:19] VITALS: BP 146/73
[2021-11-26] MEDS: BENADRYL PO PRN (07:57)
[2021-11-26] MEDS: TORADOL IV PRN (07:57)
[2021-11-26] MEDS: VALIUM PO PRN (07:57)
[2021-11-26] MEDS: ULTRAM PO PRN (08:07)
--- NOTE | 2021-11-26 08:15 | NUR ---
This nurse attempted to administer IV toradol for pain rating of 9 out of 10, but IV access had been dislodged; IV access discontinued and tramadol 100mg PO administered and PT assisted with position change. Will continue to monitor pain levels.
[2021-11-26] MEDS ORDERED: LANTUS SQ SCH (08:30)
[2021-11-26] MEDS: HUMULIN R SQ SCH ×2 (08:54→12:24)
[2021-11-26] MEDS ORDERED: ASPIRIN EC PO SCH (09:00)
[2021-11-26] MEDS: SECTRAL PO SCH (09:00)
[2021-11-26] MEDS: RESTASIS OP SCH (09:00)
[2021-11-26] MEDS ORDERED: COZAAR PO SCH (09:00)
[2021-11-26] MEDS ORDERED: COZAAR ONE (09:12)
[2021-11-26] MEDS: COLACE PO SCH (09:14)
[2021-11-26] MEDS: CYMBALTA PO SCH (09:14)
[2021-11-26] MEDS: XARELTO PO SCH (09:15)
[2021-11-26] MEDS: TRICOR PO SCH (09:15)
[2021-11-26] MEDS: NEURONTIN PO SCH (09:16)
[2021-11-26] MEDS: PROTONIX PO SCH (09:20)
[2021-11-26] MEDS: PEPCID PO SCH (09:20)
[2021-11-26] MEDS ORDERED: TRAM50TA PO (10:02)
[2021-11-26] MEDS ORDERED: ACET500T73 PO (10:02)
[2021-11-26] MEDS: TRELEGY ELLIPTA 100-62.5-25 IH SCH (10:02)
[2021-11-26] MEDS ORDERED: ASPI-667 PO (10:02)
[2021-11-26] MEDS ORDERED: TORADOL PO PRN (11:00)
[2021-11-26 11:23] VITALS: BP 151/65
--- NOTE | 2021-11-26 11:37 | PRM.DC ---
Discharge Summary Date of Discharge: Nov 26, 2021 Time of Request to Discharge: 08:45 Reason for Visit: Right knee pain Patient History: Alzheimer's disease 32 MOTHER, , Age:83 Chronic obstructive pulmonary disease G8 SISTER, , Age:69 Congestive heart failure 32 MOTHER, , Age:83 G8 SISTER, , Age:69 G8 SISTER, , Age:50 Diabetes mellitus 32 MOTHER, , Age:83 G8 BROTHER, , Age:81 G8 BROTHER, , Age:65 G8 SISTER, , Age:69 G8 SISTER, , Age:50 FH: breast cancer 32 MOTHER, , Age:83 FH: seizures 19 CHILD Heart valve insufficiency G8 BROTHER, , Age:81 Hypertension 32 MOTHER, , Age:83 G8 BROTHER, , Age:81 G8 BROTHER, , Age:65 G8 SISTER, , Age:69 G8 SISTER, , Age:50 Kidney stone 19 CHILD No known health problems 33 FATHER, , Age:36 19 CHILD Parkinson's disease 32 MOTHER, , Age:83 Exam/Vitals Vital Signs Date Time Temp Pulse Resp B/P (MAP) Pulse Ox O2 Delivery O2 Flow Rate FiO2 11/26/21 11:23 97.9 85 17 151/65 (93) 97 Room Air* 0 21 General: Alert, Oriented X3, Cooperative HEENT: Atraumatic Neck: Supple, No JVD Lungs: Clear to auscultation, Normal air movement Heart: Regular rate, Normal S1, Normal S2 Abdomen: Normal bowel sounds, Soft, No tenderness Extremities: Normal pulses, Other ([place] wound vac in place over surgical incision ) Skin: No rashes, No breakdown, No significant lesion Neuro: Normal speech, Strength at 5/5 X4 ext, Sensation intact, Cranial nerves 3-12 NL Psych/Mental Status: Mental status NL, Mood NL Scheduled Acebutolol Hcl (Acebutolol Hcl), 200 MG PO BID, (Reported) Acetaminophen (Acetaminophen), 2 TAB PO Q6HR Albuterol Sulfate (Albuterol Sulfate), 1 VIAL NEB BID, (Reported) Aspirin (Aspirin), 1 TAB PO BID Atorvastatin 80MG (Lipitor 80MG), 1 TAB PO HS, (Reported) Celecoxib (Celebrex), 1 CAP PO HS, (Reported) Cyanocobalamin (Vitamin B-12) (Cyanocobalamin Injection), 1,000 MCG IJ EVERY 14 DAYS, (Reported) Cyclosporine (Restasis), 1 DROP OP BID, (Reported) Dulaglutide (Trulicity), 1.5 MG SQ Q7D, (Reported) Duloxetine Hcl (Cymbalta), 1 CAP PO DAILY, (Reported) Fenofibrate (Lipofen), 150 MG PO HS, (Reported) Fluticasone/Umeclidin/Vilanter (Trelegy Ellipta 100-62.5-25), 1 PUFF IH DAILY24, (Reported) Gabapentin (Gabapentin), 1 TAB PO BID, (Reported) Insulin Glargine,Hum.rec.anlog (Lantus Solostar), 70 UNITS SQ BID, (Reported) Insulin Lispro (Humalog), Unknown Dose SQ TIDM, (Reported) Levothyroxine Sodium (Levothyroxine Sodium), 1 TAB PO DAILY, (Reported) Montelukast Sodium (Singulair), 1 TAB PO HS, (Reported) Pantoprazole Sodium (Pantoprazole Sodium), 1 TAB PO BID, (Reported) Tramadol Hcl (Tramadol Hcl), 1-2 TAB PO Q6HR Valsartan/Hydrochlorothiazide (Diovan Hct 160-25 Mg Tablet), 1 TAB PO DAILY, (Reported) Scheduled PRN Albuterol Sulfate (Proair Hfa), 1 PUFF IH Q4 PRN for SHORTNESS OF BREATH, (Reported) Benzonatate (Benzonatate), 1 CAP PO TIWP PRN for cough, (Reported) Nitroglycerin (Nitroglycerin), 1 TAB SL PRN PRN for CHEST PAIN, (Reported) Discontinued Medications Aspirin (Aspir 81), 1 TAB PO DAILY, (Reported) Discontinued Reason: HOLD Atorvastatin 40MG (Lipitor 40MG), 1 TAB PO HS, (Reported) Discontinued Reason: No Longer Taking Buprenorphine (Butrans), 1 EACH TD Q7D, (Reported) Discontinued Reason: No Longer Taking Clobetasol Propionate (Clobetasol Propionate), 1 APPLIC TP BID PRN for ITCHING, (Reported) Discontinued Reason: No Longer Taking Desvenlafaxine Succinate (Pristiq Er), 1 TAB PO DAILY, (Reported) Discontinued Reason: No Longer Taking Exenatide Microspheres (Bydureon Pen), 2 MG SQ Q7D, (Reported) Discontinued Reason: No Longer Taking Gabapentin (Gabapentin), 300 CAP PO BID, (Reported) Discontinued Reason: No Longer Taking Glimepiride (Glimepiride), 1 TAB PO BID, (Reported) Discontinued Reason: No Longer Taking Insulin Lispro (Humalog), 5 UNIT SQ TIDM, (Reported) Discontinued Reason: No Longer Taking [place]-3S/Dha/Epa/Fish Oil (Fish Oil 1,200 mg Softgel), 2 EACH PO BID, (Reported) Discontinued Reason: No Longer Taking Omeprazole (Omeprazole), 1 CAP PO BID, (Reported) Discontinued Reason: No Longer Taking Sitagliptin Phosphate (Januvia), 1 TAB PO HS, (Reported) Discontinued Reason: No Longer Taking Tramadol Hcl (Tramadol Hcl), 1 TAB PO Q6 PRN for PAIN, (Reported) Discontinued Reason: No Longer Taking Sepsis Evaluation @ Discharge Vital Sign - Last 24 Hours 11/24/21 11/24/21 11/24/21 11/24/21 09:05 09:05 13:18 15:24 Temp 98.5 98.3 98.8 Pulse 86 106 Resp 16 16 B/P (MAP) 143/84 (103) 132/82 (99) Pulse Ox 98 O2 Delivery Room Air Room Air Nasal [place] O2 Flow Rate 2.00 11/24/21 11/24/21 11/24/21 11/24/21 15:24 15:30 15:40 15:50 Pulse 97 97 100 Resp 16 16 16 B/P (MAP) 137/84 (101) 140/62 (88) 160/84 (109) Pulse Ox 97 97 97 O2 Delivery Nasal Canula Nasal Canula Room Air O2 Flow Rate 2.00 2.00 2.00 11/24/21 11/24/21 11/24/21 11/24/21 16:00 16:30 16:30 17:59 Temp 97.7 98.1 Pulse 93 95 Resp 16 18 B/P (MAP) 157/74 (101) 135/88 (104) Pulse Ox 94 91 92 O2 Delivery Room Air Nasal Cannula* Nasal Cannula Nasal Cannula* O2 Flow Rate 1 1.50 2 FiO2 24 28 7/25/22 7/25/22 7/25/22 7/25/22 17:59 19:38 20:18 20:37 Temp 97.7 Pulse 106 106 Resp 16 16 B/P (MAP) 113/71 (85) 113/71 Pulse Ox 96 94 O2 Delivery Nasal Cannula Nasal Cannula* O2 Flow Rate 1.50 1 FiO2 24 11/24/21 11/25/21 11/25/21 11/25/21 21:00 01:04 05:27 07:04 Temp 98.3 98.2 98.8 Pulse 100 93 90 89 Resp 16 18 19 18 B/P (MAP) 102/75 (84) 104/57 (73) 106/52 (70) Pulse Ox 96 97 97 96 O2 Delivery Nasal Cannula* Nasal Cannula* Nasal Cannula* Room Air* O2 Flow Rate 2 2 2 0 FiO2 28 28 28 21 11/25/21 11/25/21 08:16 08:27 Pulse 88 Resp 16 B/P (MAP) 106/52 Pulse Ox 96 O2 Delivery Nasal Cannula* O2 Flow Rate 1 FiO2 24 Intake and Output 11/25/21 07:00 Intake Total 2620 ml Output Total 2100 ml Balance 520 ml Laboratory Tests Test 11/24/21 16:01 11/24/21 20:42 11/24/21 22:07 11/25/21 04:17 Bedside Glucose 147 240 White Blood Count 14.5 10^3/uL 12.5 10^3/uL Red Blood Count 3.80 10^6/uL 3.47 10^6/uL Hemoglobin 11.4 g/dL 10.5 g/dL Hematocrit 35.8 % 32.6 % Mean Corpuscular Volume 94.2 fL 93.9 fL Mean Corpuscular Hemoglobin 30.0 pg 30.3 pg Mean Corpuscular Hemoglobin Concent 31.8 g/dL 32.2 g/dL Red Cell Distribution Width 13.7 % 13.7 % Platelet Count 291 10^3/uL 270 10^3/uL Mean Platelet Volume 9.3 fL 9.2 fL Sodium Level 142 mmol/L Potassium Level 3.8 mmol/L Chloride Level 105.0 mmol/L Carbon Dioxide Level 28.6 mmol/L Glucose Level 124 mg/dL Blood Urea Nitrogen 17 mg/dL Creatinine 1.12 mg/dL Calcium Level 8.4 mg/dL Anion Gap 12.2 Estimated GFR () 57.7 Est GFR (CKD-EPI)(Non-Afr Indonesian) 47.7 BUN/Creatinine Ratio 15.0 Current Medications Medications (Trade) Dose Ordered Sig/Dayanna PRN Reason Start Time Stop Time Status Last Admin Acebutolol HCl (Sectral) 200 mg BID 11/24/21 21:00 12/24/21 20:59 Acetaminophen (Tylenol) 1,000 mg Q6HR 11/24/21 12:00 12/24/21 11:59 11/25/21 05:22 Atorvastatin Calcium (Lipitor) 80 mg HS 11/24/21 21:00 12/24/21 20:59 11/24/21 20:36 Cefazolin Sodium 3 gm/Sodium Chloride 100 ml @ 100 mls/hr Q8H 11/24/21 18:00 11/25/21 10:59 11/25/21 01:16 Cyclosporine (Restasis) 1 drops BID 11/24/21 21:00 12/24/21 20:59 Dextrose 1,000 ml @ 100 mls/hr Q10H PRN HYPOGLYCEMIA 11/25/21 08:30 12/25/21 08:29 UNV Dextrose (Dextrose 50%-Water Syringe) 25 ml PRN PRN HYPOGLYCEMIA 11/25/21 08:30 12/25/21 08:29 UNV Docusate Sodium (Colace) 100 mg DAILY 11/25/21 09:00 12/25/21 08:59 11/25/21 08:13 Duloxetine HCl (Cymbalta) 60 mg DAILY 11/25/21 09:00 12/25/21 08:59 11/25/21 08:10 Famotidine (Pepcid) 20 mg DAILY 11/25/21 09:00 12/25/21 08:59 11/25/21 08:13 Fenofibrate (Tricor) 145 mg DAILY 11/25/21 09:00 12/25/21 08:59 11/25/21 08:10 Gabapentin (Neurontin) 600 mg BID 11/24/21 21:00 12/24/21 20:59 11/24/21 20:36 Hydrochlorothiazide (Hydrochlorothiazide) 25 mg DAILY 11/25/21 09:00 12/25/21 08:59 Insulin Human Regular (Humulin R) ACHS 11/25/21 11:30 12/25/21 11:29 UNV Ketorolac Tromethamine (Toradol) 15 mg Q6H PRN PAIN 7 - 10 11/24/21 10:30 11/29/21 10:29 Levothyroxine Sodium (Synthroid) 100 mcg ACB 11/25/21 06:30 12/25/21 06:29 11/25/21 05:22 Montelukast Sodium (Singulair) 10 mg HS 11/24/21 21:00 12/24/21 20:59 11/24/21 20:37 Ondansetron HCl (Zofran) 4 mg Q4H PRN NAUSEA / VOMITING 11/24/21 10:30 12/24/21 10:29 Pantoprazole Sodium (Protonix) 40 mg BID 11/24/21 21:00 12/24/21 20:59 11/25/21 08:12 Rivaroxaban (Xarelto) 10 mg DAILY 11/25/21 16:00 12/25/21 15:59 Throat Lozenges (Cepacol Sore Throat Lozenge) 1 each PRN PRN SORE THROAT 11/24/21 10:30 12/24/21 10:29 Tramadol HCl (Ultram) 50 mg Q6H PRN PAIN 1 - 3 11/24/21 10:30 12/24/21 10:29 Tramadol HCl (Ultram) 100 mg Q6H PRN PAIN 4 - 6 11/24/21 10:30 12/24/21 10:29 Stroke Discharge Summary Discharge on Anti-Thrombotics: Yes Anti Thrombotic Medications: Aspirin 81mg Chew Tab Course Sepsis Screening Results: Posi: NEGATIVE Sepsis Qualifier/Stage: NO DEFINITE RISK DATE SEEN BY PHYSICIAN: Nov 26, 2021 TIME SEEN BY PROVIDER: 08:45 Duration or Total Time Spent w: 20 mins Vitals & review Data Vital Sign - Last 24 Hours 11/24/21 11/24/21 11/24/21 11/24/21 09:05 09:05 13:18 15:24 Temp 98.5 98.3 98.8 Pulse 86 106 Resp 16 16 B/P (MAP) 143/84 (103) 132/82 (99) Pulse Ox 98 O2 Delivery Room Air Room Air Nasal [place] O2 Flow Rate 2.00 11/24/21 11/24/21 11/24/21 11/24/21 15:24 15:30 15:40 15:50 Pulse 97 97 100 Resp 16 16 16 B/P (MAP) 137/84 (101) 140/62 (88) 160/84 (109) Pulse Ox 97 97 97 O2 Delivery Nasal [place] Nasal Canula Room Air O2 Flow Rate 2.00 2.00 2.00 11/24/21 11/24/21 11/24/21 11/24/21 16:00 16:30 16:30 17:59 Temp 97.7 98.1 Pulse 93 95 Resp 16 18 B/P (MAP) 157/74 (101) 135/88 (104) Pulse Ox 94 91 92 O2 Delivery Room Air Nasal Cannula* Nasal Cannula Nasal Cannula* O2 Flow Rate 1 1.50 2 FiO2 24 28 11/24/21 11/24/21 11/24/21 11/24/21 17:59 19:38 20:18 20:37 Temp 97.7 Pulse 106 106 Resp 16 16 B/P (MAP) 113/71 (85) 113/71 Pulse Ox 96 94 O2 Delivery Nasal Cannula Nasal Cannula* O2 Flow Rate 1.50 1 FiO2 24 11/24/21 11/25/21 11/25/21 11/25/21 21:00 01:04 05:27 07:04 Temp 98.3 98.2 98.8 Pulse 100 93 90 89 Resp 16 18 19 18 B/P (MAP) 102/75 (84) 104/57 (73) 106/52 (70) Pulse Ox 96 97 97 96 O2 Delivery Nasal Cannula* Nasal Cannula* Nasal Cannula* Room Air* O2 Flow Rate 2 2 2 0 FiO2 28 28 28 21 11/25/21 11/25/21 08:16 08:27 Pulse 88 Resp 16 B/P (MAP) 106/52 Pulse Ox 96 O2 Delivery Nasal Cannula* O2 Flow Rate 1 FiO2 24 Intake and Output 11/25/21 07:00 Intake Total 2620 ml Output Total 2100 ml Balance 520 ml Laboratory Tests Test 11/24/21 16:01 11/24/21 20:42 11/24/21 22:07 11/25/21 04:17 Bedside Glucose 147 240 White Blood Count 14.5 10^3/uL 12.5 10^3/uL Red Blood Count 3.80 10^6/uL 3.47 10^6/uL Hemoglobin 11.4 g/dL 10.5 g/dL Hematocrit 35.8 % 32.6 % Mean Corpuscular Volume 94.2 fL 93.9 fL Mean Corpuscular Hemoglobin 30.0 pg 30.3 pg Mean Corpuscular Hemoglobin Concent 31.8 g/dL 32.2 g/dL Red Cell Distribution Width 13.7 % 13.7 % Platelet Count 291 10^3/uL 270 10^3/uL Mean Platelet Volume 9.3 fL 9.2 fL Sodium Level 142 mmol/L Potassium Level 3.8 mmol/L Chloride Level 105.0 mmol/L Carbon Dioxide Level 28.6 mmol/L Glucose Level 124 mg/dL Blood Urea Nitrogen 17 mg/dL Creatinine 1.12 mg/dL Calcium Level 8.4 mg/dL Anion Gap 12.2 Estimated GFR () 57.7 Est GFR (CKD-EPI)(Non-Afr Indonesian) 47.7 BUN/Creatinine Ratio 15.0 Current Medications Medications (Trade) Dose Ordered Sig/Dayanna PRN Reason Start Time Stop Time Status Last Admin Acebutolol HCl (Sectral) 200 mg BID 11/24/21 21:00 12/24/21 20:59 Acetaminophen (Tylenol) 1,000 mg Q6HR 11/24/21 12:00 12/24/21 11:59 11/25/21 05:22 Atorvastatin Calcium (Lipitor) 80 mg HS 11/24/21 21:00 12/24/21 20:59 11/24/21 20:36 Cefazolin Sodium 3 gm/Sodium Chloride 100 ml @ 100 mls/hr Q8H 11/24/21 18:00 11/25/21 10:59 11/25/21 01:16 Cyclosporine (Restasis) 1 drops BID 11/24/21 21:00 12/24/21 20:59 Dextrose 1,000 ml @ 100 mls/hr Q10H PRN HYPOGLYCEMIA 11/25/21 08:30 12/25/21 08:29 UNV Dextrose (Dextrose 50%-Water Syringe) 25 ml PRN PRN HYPOGLYCEMIA 11/25/21 08:30 12/25/21 08:29 UNV Docusate Sodium (Colace) 100 mg DAILY 11/25/21 09:00 12/25/21 08:59 11/25/21 08:13 Duloxetine HCl (Cymbalta) 60 mg DAILY 11/25/21 09:00 12/25/21 08:59 11/25/21 08:10 Famotidine (Pepcid) 20 mg DAILY 11/25/21 09:00 12/25/21 08:59 11/25/21 08:13 Fenofibrate (Tricor) 145 mg DAILY 11/25/21 09:00 12/25/21 08:59 11/25/21 08:10 Gabapentin (Neurontin) 600 mg BID 11/24/21 21:00 12/24/21 20:59 11/24/21 20:36 Hydrochlorothiazide (Hydrochlorothiazide) 25 mg DAILY 11/25/21 09:00 12/25/21 08:59 Insulin Human Regular (Humulin R) ACHS 11/25/21 11:30 12/25/21 11:29 UNV Ketorolac Tromethamine (Toradol) 15 mg Q6H PRN PAIN 7 - 10 11/24/21 10:30 11/29/21 10:29 Levothyroxine Sodium (Synthroid) 100 mcg ACB 11/25/21 06:30 12/25/21 06:29 11/25/21 05:22 Montelukast Sodium (Singulair) 10 mg HS 11/24/21 21:00 12/24/21 20:59 11/24/21 20:37 Ondansetron HCl (Zofran) 4 mg Q4H PRN NAUSEA / VOMITING 11/24/21 10:30 12/24/21 10:29 Pantoprazole Sodium (Protonix) 40 mg BID 11/24/21 21:00 12/24/21 20:59 11/25/21 08:12 Rivaroxaban (Xarelto) 10 mg DAILY 11/25/21 16:00 12/25/21 15:59 Throat Lozenges (Cepacol Sore Throat Lozenge) 1 each PRN PRN SORE THROAT 11/24/21 10:30 12/24/21 10:29 Tramadol HCl (Ultram) 50 mg Q6H PRN PAIN 1 - 3 11/24/21 10:30 12/24/21 10:29 Tramadol HCl (Ultram) 100 mg Q6H PRN PAIN 4 - 6 11/24/21 10:30 12/24/21 10:29 LEVEL 1 SEPSIS INFECTION CRITE: Recent Invasive Procedure LEVEL 2-SIRS (LIST ALL THAT AP: None/Not assessed Cardiovascular Evidence: Not Assessed or None Hematologic Evidence: None/Not assessed Hepatic Evidence: None/Not assessed Metabolic Evidence: None/Not assessed Neurological Evidence: None/Not assessed Respiratory Evidence: None/Not assessed Renal Evidence: None/Not assessed O2 Sat by Pulse Oximetry: 97 Oxygen Flow Rate: 0 Plan Problems: (1) Body mass index [BMI] 40.0-44.9, adult Status: Chronic ICD Code: Z68.41 - Body mass index [BMI] 40.0-44.9, adult SNOMED: 724087322, 130330213 (2) Osteoarthritis of right knee Status: Resolved ICD Code: M17.11 - Unilateral primary osteoarthritis, right knee SNOMED: 373192857300497 (3) Diabetes Status: Chronic ICD Code: E11.9 - Type 2 diabetes mellitus without complications SNOMED: 33142446 (4) Right tibial fracture Status: Acute ICD Code: S82.201A - Unspecified fracture of shaft of right tibia, initial encounter for closed fracture SNOMED: 91631056, [id number] Discharge Date: Nov 26, 2021 Dicharge DX: R TKA Discharge Disposition: Stable Plan Patient up on side of bed, reports pain has been well managed through the night, she is ready to go home this morning Labs reviewed, remain stable Neurovascular exam intact May discharge to [facility] for skilled rehab today Follow up with Dr. Link on Wednesday12/01/[address] until next appointment Non-weightbearing to the RLE May use wheelchair Continue tylenol and tramadol for pain PRN Aspirin 81mg PO BID x30 days for VTE prophylaxis Problem Qualifiers (1) Diabetes: Diabetes mellitus type: type 2 Diabetes mellitus [place] insulin use: unspecified snf insulin use status (2) Right tibial fracture: Encounter type: initial encounter Fracture type: closed Fracture alignment: nondisplaced LEAH PELLETIER Nov 26, 2021 11:37
--- NOTE | 2021-11-26 11:40 | PRM.PN ---
Subjective Subjective Date: Nov 26, 2021 Time: 09:00 Subjective Patient overall is doing okay. Blood glucose is is up. We will start the patient on basal insulin plus sliding scale insulin coverage. Patient will be discharged to care home facility today as per Ortho. Patient History: Alzheimer's disease 32 MOTHER, , Age:83 Chronic obstructive pulmonary disease G8 SISTER, , Age:69 Congestive heart failure 32 MOTHER, , Age:83 G8 SISTER, , Age:69 G8 SISTER, , Age:50 Diabetes mellitus 32 MOTHER, , Age:83 G8 BROTHER, , Age:81 G8 BROTHER, , Age:65 G8 SISTER, , Age:69 G8 SISTER, , Age:50 FH: breast cancer 32 MOTHER, , Age:83 FH: seizures 19 CHILD Heart valve insufficiency G8 BROTHER, , Age:81 Hypertension 32 MOTHER, , Age:83 G8 BROTHER, , Age:81 G8 BROTHER, , Age:65 G8 SISTER, , Age:69 G8 SISTER, , Age:50 Kidney stone 19 CHILD No known health problems 33 FATHER, , Age:36 19 CHILD Parkinson's disease 32 MOTHER, , Age:83 Review of Systems Constitutional: No: Fever, Chills, Sweats, Weakness, Malaise, Other Eyes: No: Pain, Vision change, Conjunctivae inflammation, Eyelid inflammation, Other, Redness ENT: No: Ear pain, Ear discharge, Nose pain, Nose discharge, Nose congestion, Mouth pain, Mouth swelling, Throat pain, Throat swelling, Other Respiratory: No: Cough, Dry, Shortness of breath, SOB with excertion, Wheezing, Hemoptysis, Pleuritic Pain, Sputum, Wheezing, Other Cardiovascular: No: Chest Pain, Palpitations, Orthopnea, Paroxysmal Noc. Dyspnea, Edema, Lt Headedness, Other Gastrointestinal: No: Nausea, Vomiting, Abdominal Pain, Diarrhea, Constipation, Melena, Hematochezia, Other Genitourinary: No Dysuria, No Frequency, No Incontinence, No Hematuria, No Retention, No Other Musculoskeletal: leg pain (R knee pain) Skin: No: Rash, Lesions, Jaundice, Bruising, Other Neurological: No: Weakness, Numbness, Incoordination, Change in speech, Confusion, Seizures, Other Allergies: Coded Allergies: shellfish derived (Verified Allergy, Severe, ELEVATED BP, HYPERVENTALATION, 04/12/20) codeine (Verified Allergy, Unknown, ITCHING, 04/12/20) Scheduled Acebutolol Hcl (Acebutolol Hcl), 200 MG PO BID, (Reported) Acetaminophen (Acetaminophen), 2 TAB PO Q6HR Albuterol Sulfate (Albuterol Sulfate), 1 VIAL NEB BID, (Reported) Aspirin (Aspirin), 1 TAB PO BID Atorvastatin 80MG (Lipitor 80MG), 1 TAB PO HS, (Reported) Celecoxib (Celebrex), 1 CAP PO HS, (Reported) Cyanocobalamin (Vitamin B-12) (Cyanocobalamin Injection), 1,000 MCG IJ EVERY 14 DAYS, (Reported) Cyclosporine (Restasis), 1 DROP OP BID, (Reported) Dulaglutide (Trulicity), 1.5 MG SQ Q7D, (Reported) Duloxetine Hcl (Cymbalta), 1 CAP PO DAILY, (Reported) Fenofibrate (Lipofen), 150 MG PO HS, (Reported) Fluticasone/Umeclidin/Vilanter (Trelegy Ellipta 100-62.5-25), 1 PUFF IH DAILY24, (Reported) Gabapentin (Gabapentin), 1 TAB PO BID, (Reported) Insulin Glargine,Hum.rec.anlog (Lantus Solostar), 70 UNITS SQ BID, (Reported) Insulin Lispro (Humalog), Unknown Dose SQ TIDM, (Reported) Levothyroxine Sodium (Levothyroxine Sodium), 1 TAB PO DAILY, (Reported) Montelukast Sodium (Singulair), 1 TAB PO HS, (Reported) Pantoprazole Sodium (Pantoprazole Sodium), 1 TAB PO BID, (Reported) Tramadol Hcl (Tramadol Hcl), 1-2 TAB PO Q6HR Valsartan/Hydrochlorothiazide (Diovan Hct 160-25 Mg Tablet), 1 TAB PO DAILY, (Reported) Scheduled PRN Albuterol Sulfate (Proair Hfa), 1 PUFF IH Q4 PRN for SHORTNESS OF BREATH, (Reported) Benzonatate (Benzonatate), 1 CAP PO TIWP PRN for cough, (Reported) Nitroglycerin (Nitroglycerin), 1 TAB SL PRN PRN for CHEST PAIN, (Reported) Discontinued Medications Aspirin (Aspir 81), 1 TAB PO DAILY, (Reported) Discontinued Reason: HOLD Atorvastatin 40MG (Lipitor 40MG), 1 TAB PO HS, (Reported) Discontinued Reason: No Longer Taking Buprenorphine (Butrans), 1 EACH TD Q7D, (Reported) Discontinued Reason: No Longer Taking Clobetasol Propionate (Clobetasol Propionate), 1 APPLIC TP BID PRN for ITCHING, (Reported) Discontinued Reason: No Longer Taking Desvenlafaxine Succinate (Pristiq Er), 1 TAB PO DAILY, (Reported) Discontinued Reason: No Longer Taking Exenatide Microspheres (Bydureon Pen), 2 MG SQ Q7D, (Reported) Discontinued Reason: No Longer Taking Gabapentin (Gabapentin), 300 CAP PO BID, (Reported) Discontinued Reason: No Longer Taking Glimepiride (Glimepiride), 1 TAB PO BID, (Reported) Discontinued Reason: No Longer Taking Insulin Lispro (Humalog), 5 UNIT SQ TIDM, (Reported) Discontinued Reason: No Longer Taking [place]-3S/Dha/Epa/Fish Oil (Fish Oil 1,200 mg Softgel), 2 EACH PO BID, (Reported) Discontinued Reason: No Longer Taking Omeprazole (Omeprazole), 1 CAP PO BID, (Reported) Discontinued Reason: No Longer Taking Sitagliptin Phosphate (Januvia), 1 TAB PO HS, (Reported) Discontinued Reason: No Longer Taking Tramadol Hcl (Tramadol Hcl), 1 TAB PO Q6 PRN for PAIN, (Reported) Discontinued Reason: No Longer Taking Objective Vitals and I/O Vital Sign - Last 24 Hours 11/25/21 11/25/21 11/25/21 11/25/21 14:00 15:17 16:00 18:26 Temp 98.0 Pulse 88 88 Resp 18 16 B/P (MAP) 145/71 (95) Pulse Ox 97 95 O2 Delivery Nasal Cannula Room Air* Nasal Cannula Room Air* Nasal Cannula* O2 Flow Rate 1.50 0 1.50 0 FiO2 21 N/A 11/25/21 11/25/21 11/25/21 11/25/21 20:15 20:42 21:00 22:48 Temp 98.0 Pulse 93 84 93 Resp 17 17 B/P (MAP) 110/54 (72) 110/54 Pulse Ox 98 90 O2 Delivery Room Air* Room Air* Nasal Cannula O2 Flow Rate 0 0 1.50 FiO2 21 11/25/21 11/26/21 11/26/21 11/26/21 23:49 04:10 07:19 09:00 Temp 98.3 98.8 98.8 Pulse 92 96 90 85 Resp 17 17 18 B/P (MAP) 111/55 (73) 128/62 (84) 146/73 (97) 146/73 Pulse Ox 93 98 94 O2 Delivery Room Air* Room Air* Room Air* O2 Flow Rate 0 0 0 FiO2 11/26/21 11/26/21 09:04 11:23 Temp 97.9 Pulse 85 85 Resp 17 17 B/P (MAP) 151/65 (93) Pulse Ox 90 97 O2 Delivery Room Air* Room Air* O2 Flow Rate 0 0 FiO2 Intake and Output 11/26/21 07:00 Intake Total 300.5 ml Output Total 1000 ml Balance -699.5 ml General: Alert, Oriented X3, Cooperative HEENT: Atraumatic, PERRLA (Left pupil dose not dilate, right pupil is equal, round, and reactive to light) Lungs: Clear to auscultation, Normal air movement Heart: Regular rate, Normal S1, Normal S2 Abdomen: Normal bowel sounds, Soft, No tenderness Extremities: No clubbing, No cyanosis, Normal pulses, Other (Postoperative knee) Neuro: Normal speech, Normal tone, Sensation intact, Cranial nerves 3-12 NL Psych/Mental Status: Mental status NL, Mood NL All Results(Lab/Rad) Laboratory Tests Test 11/24/21 16:01 11/24/21 20:42 11/24/21 22:07 11/25/21 04:17 Bedside Glucose 147 240 White Blood Count 14.5 10^3/uL 12.5 10^3/uL Red Blood Count 3.80 10^6/uL 3.47 10^6/uL Hemoglobin 11.4 g/dL 10.5 g/dL Hematocrit 35.8 % 32.6 % Mean Corpuscular Volume 94.2 fL 93.9 fL Mean Corpuscular Hemoglobin 30.0 pg 30.3 pg Mean Corpuscular Hemoglobin Concent 31.8 g/dL 32.2 g/dL Red Cell Distribution Width 13.7 % 13.7 % Platelet Count 291 10^3/uL 270 10^3/uL Mean Platelet Volume 9.3 fL 9.2 fL Sodium Level 142 mmol/L Potassium Level 3.8 mmol/L Chloride Level 105.0 mmol/L Carbon Dioxide Level 28.6 mmol/L Glucose Level 124 mg/dL Blood Urea Nitrogen 17 mg/dL Creatinine 1.12 mg/dL Calcium Level 8.4 mg/dL Anion Gap 12.2 Estimated GFR () 57.7 Est GFR (CKD-EPI)(Non-Afr [place]) 47.7 BUN/Creatinine Ratio 15.0 Current Medications Medications (Trade) Dose Ordered Sig/Dayanna Route PRN Reason Start Time Stop Time Status Last Admin Dose Admin Sodium Chloride 1,000 ml @ 100 mls/hr Q10H IV 11/24/21 06:00 11/25/21 00:04 DC 11/24/21 09:36 Cefazolin Sodium 3 gm/Sodium Chloride 100 ml @ 100 mls/hr OT ONCE IV 11/24/21 06:00 11/24/21 09:31 DC 11/24/21 12:19 Mupirocin (Bactroban Ointment) 1 gm OT ONCE TP 11/24/21 06:00 11/24/21 09:31 DC 11/24/21 09:34 Gabapentin (Neurontin) 600 mg OT ONCE PO 11/24/21 06:00 11/24/21 09:47 DC Tramadol HCl (Ultram) 50 mg OT ONCE PO 11/24/21 06:00 11/24/21 09:47 DC Acetaminophen (Ofirmev) 500 mg OT ONCE IV 11/24/21 06:00 11/24/21 09:31 DC 11/24/21 09:44 Sodium Chloride 100 ml @ ud STK-MED ONCE IV 11/24/21 05:53 11/24/21 05:54 DC Cefazolin Sodium (Ancef) 1 gm STK-MED ONCE .ROUTE 11/24/21 05:54 11/24/21 05:54 DC Cefazolin Sodium (Ancef) 2 gm STK-MED ONCE .ROUTE 11/24/21 05:54 11/24/21 05:55 DC Scopolamine (Transderm-Scop) 1 each OT ONCE TD 11/24/21 09:30 11/24/21 10:41 DC 11/24/21 09:44 Acetaminophen 100 ml @ ud STK-MED ONCE IV 11/24/21 09:40 11/24/21 09:40 DC Gabapentin (Neurontin) 300 mg STK-MED ONCE .ROUTE 11/24/21 09:40 11/24/21 09:40 DC Tramadol HCl (Ultram) 50 mg STK-MED ONCE .ROUTE 11/24/21 09:40 11/24/21 09:41 DC Tramadol HCl (Ultram) 100 mg OT ONCE PO 11/24/21 09:45 11/24/21 10:41 DC 11/24/21 09:50 Gabapentin (Neurontin) 300 mg OT ONCE PO 11/24/21 09:45 11/24/21 09:49 DC Gabapentin (Neurontin) 600 mg OT ONCE PO 11/24/21 09:45 11/24/21 10:41 DC 11/24/21 09:51 Tramadol HCl (Ultram) 50 mg Q6H PRN PO PAIN 1 - 3 11/24/21 10:30 12/24/21 10:29 Tramadol HCl (Ultram) 100 mg Q6H PRN PO PAIN 4 - 6 11/24/21 10:30 12/24/21 10:29 Rivaroxaban (Xarelto) 10 mg DAILY PO 11/25/21 09:00 11/24/21 21:46 DC Docusate Sodium (Colace) 100 mg DAILY PO 11/25/21 09:00 12/25/21 08:59 11/25/21 08:13 Throat Lozenges (Cepacol Sore Throat Lozenge) 1 each PRN PRN MM SORE THROAT 11/24/21 10:30 12/24/21 10:29 Famotidine (Pepcid) 20 mg DAILY PO 11/25/21 09:00 12/25/21 08:59 11/25/21 08:13 Ketorolac Tromethamine (Toradol) 15 mg Q6H PRN IV PAIN 7 - 10 11/24/21 10:30 11/29/21 10:29 Ondansetron HCl (Zofran) 4 mg Q4H PRN IV NAUSEA / VOMITING 11/24/21 10:30 12/24/21 10:29 Cefazolin Sodium 3 gm/Sodium Chloride 100 ml @ 100 mls/hr Q8H IV 11/24/21 18:00 11/25/21 10:59 11/25/21 01:16 Acetaminophen (Tylenol) 1,000 mg Q6HR PO 11/24/21 12:00 12/24/21 11:59 11/25/21 05:22 Acebutolol HCl (Sectral) 200 mg BID PO 11/24/21 21:00 12/24/21 20:59 Atorvastatin Calcium (Lipitor) 80 mg HS PO 11/24/21 21:00 12/24/21 20:59 11/24/21 20:36 Cyclosporine (Restasis) 1 drops BID OP 11/24/21 21:00 12/24/21 20:59 Gabapentin (Neurontin) 600 mg BID PO 11/24/21 21:00 12/24/21 20:59 11/24/21 20:36 Levothyroxine Sodium (Synthroid) 100 mcg ACB PO 11/25/21 06:30 12/25/21 06:29 11/25/21 05:22 Montelukast Sodium (Singulair) 10 mg HS PO 11/24/21 21:00 12/24/21 20:59 11/24/21 20:37 Pantoprazole Sodium (Protonix) 40 mg BID PO 11/24/21 21:00 12/24/21 20:59 11/25/21 08:12 Duloxetine HCl (Cymbalta) 60 mg DAILY PO 11/25/21 09:00 12/25/21 08:59 11/25/21 08:10 Fenofibrate (Tricor) 145 mg DAILY PO 11/25/21 09:00 12/25/21 08:59 11/25/21 08:10 Hydrochlorothiazide (Hydrochlorothiazide) 25 mg DAILY PO 11/25/21 09:00 12/25/21 08:59 Sodium Chloride (Sodium Chloride Irr Bottle) 1,000 ml STK-MED ONCE IR 11/24/21 11:14 11/24/21 11:14 DC Sterile Water (Water) 1,000 ml STK-MED ONCE .ROUTE 11/24/21 11:14 11/24/21 11:14 DC Sodium Chloride 250 ml @ ud STK-MED ONCE .ROUTE 11/24/21 11:14 11/24/21 11:14 DC Sodium Chloride (NS 3000ml Irr) 3,000 ml STK-MED ONCE IR 11/24/21 11:14 11/24/21 11:14 DC Bupivacaine HCl (Sensorcaine-Mpf 0.25% Vial) 2.5 mg STK-MED ONCE .ROUTE 11/24/21 12:18 11/24/21 12:18 DC Bupivacaine HCl (Marcaine 0.5%) 1 ml STK-MED ONCE .ROUTE 11/24/21 12:18 11/24/21 12:19 DC Ondansetron HCl (Zofran) 4 mg STK-MED ONCE .ROUTE 11/24/21 12:20 11/24/21 12:20 DC Tranexamic Acid (Tranexamic Acid) 1,000 mg STK-MED ONCE .ROUTE 11/24/21 12:20 11/24/21 12:21 DC Propofol 100 ml @ ud STK-MED ONCE IV 11/24/21 12:20 11/24/21 12:21 DC Morphine Sulfate (Duramorph) 10 mg STK-MED ONCE .ROUTE 11/24/21 12:20 11/24/21 12:21 DC Tranexamic Acid (Tranexamic Acid) 1,000 mg STK-MED ONCE .ROUTE 11/24/21 15:31 11/24/21 15:31 DC Diphenhydramine HCl (Benadryl) 50 mg STK-MED ONCE .ROUTE 11/24/21 15:31 11/24/21 15:31 DC Rivaroxaban (Xarelto) 10 mg DAILY PO 11/25/21 16:00 12/25/21 15:59 Cefazolin Sodium (Ancef) 1 gm STK-MED ONCE .ROUTE 11/25/21 01:13 11/25/21 01:13 DC Sodium Chloride 100 ml @ ud STK-MED ONCE IV 11/25/21 01:14 11/25/21 01:14 DC Levothyroxine Sodium (Synthroid) 100 mcg STK-MED ONCE .ROUTE 11/25/21 04:51 11/25/21 04:51 DC Dextrose 1,000 ml @ 100 mls/hr Q10H PRN IV HYPOGLYCEMIA 11/25/21 08:30 12/25/21 08:29 UNV Dextrose (Dextrose 50%-Water Syringe) 25 ml PRN PRN IV HYPOGLYCEMIA 11/25/21 08:30 12/25/21 08:29 UNV Insulin Human Regular (Humulin R) ACHS SQ 11/25/21 11:30 12/25/21 11:29 UNV Assessment/Plan Assessment/Plan Assessment/Plan Plan Start long-acting insulin, and continue sliding scale with insulin coverage.today and reassess in a.m. Continue current medications Possible discharge to care home facility as per Ortho today. Problems: (1) Diabetes Status: Chronic ICD Code: E11.9 - Type 2 diabetes mellitus without complications SNOMED: 68302235 (2) CAD (coronary artery disease) ICD Code: I25.10 - Atherosclerotic heart disease of [place] coronary artery without angina pectoris SNOMED: 39753320 (3) Hypothyroidism ICD Code: E03.9 - Hypothyroidism, unspecified SNOMED: 89513029 (4) Hypertension ICD Code: I10 - Essential (primary) hypertension SNOMED: 87606883 (5) Asthma ICD Code: J45.909 - Unspecified asthma, uncomplicated SNOMED: 362120348 (6) Osteoarthritis of right knee Status: Resolved ICD Code: M17.11 - Unilateral primary osteoarthritis, right knee SNOMED: 883918820550646 (7) Primary osteoarthritis of left knee ICD Code: M17.12 - Unilateral primary osteoarthritis, left knee SNOMED: 435994193, [id number] Problem Qualifiers (1) Diabetes: Diabetes mellitus type: type 2 Diabetes mellitus terminal [place] insulin use: unspecified [facility] insulin use status LUIS FERNANDO LOPEZ MD Nov 26, 2021 11:40
[2021-11-26 14:18] VITALS: BP 151/65
--- NOTE | 2021-11-26 14:33 | NUR ---
PT discharged to [facility]; vitals WNL and PT alert and oriented upon discharge; Assisted off unit at 1415 and transported with staff from [facility].
[2021-11-27] MEDS ORDERED: NON-FORMULARY MEDICATION 1 EA EA PO SCH (09:00)
== END 2021-11-26 14:15 | DRG 470 ==
LOC: MS 09:14
PROVIDERS: ADMIT Orthopaedic Surgery; ATTEND Orthopaedic Surgery
PROC: 0QSG04Z Reposition Right Tibia with Internal Fixation Device, Open Approach (ICD-10-PCS; principal; 2021-11-24 12:19)
PROC: 0SRC0J9 Replacement of Right Knee Joint with Synthetic Substitute, Cemented, Open Approach (ICD-10-PCS; 2021-11-24 12:19)
DX: M17.11 Unilateral primary osteoarthritis, right knee (principal); D62 Acute posthemorrhagic anemia; S82.101A Unspecified fracture of upper end of right tibia, initial encounter for closed fracture; Z68.41 Body mass index [BMI] 40.0-44.9, adult; E03.9 Hypothyroidism, unspecified; I25.10 Atherosclerotic heart disease of native coronary artery without angina pectoris; E11.9 Type 2 diabetes mellitus without complications; H54.62 Unqualified visual loss, left eye, normal vision right eye; J45.909 Unspecified asthma, uncomplicated; K21.9 Gastro-esophageal reflux disease without esophagitis; S83.249A Other tear of medial meniscus, current injury, unspecified knee, initial encounter; Z96.653 Presence of artificial knee joint, bilateral; Z80.3 Family history of malignant neoplasm of breast; Z79.899 Other long term (current) drug therapy; Z90.710 Acquired absence of both cervix and uterus; W18.39XA Other fall on same level, initial encounter; Y93.89 Activity, other specified; Y92.89 Other specified places as the place of occurrence of the external cause; Y99.8 Other external cause status
CPT/HCPCS: 36415; 73560; 76000; 80048; 81003; 82948; 85027; 87070; 97162; A4217; C1713; C1776; G0378; J0131; J0690; J1100; J1200; J1885; J2250; J2405; J3490; J7030; J7050; J7120; Q0163; 97530-GP; 97760-GP; C9290; J2274; J8499

== ENCOUNTER → 2023-06-22 | Outpatient (CLI) | payer MEDICARE, OTHER ==
[~2023-06-22] MED LIST changes: -ACEB200C PO; +ACEB200C13 PO; +ACET500T73 PO; -ANCEF 3 GM in NS 100ML 100 ML IV ONE; -ANCEF ONE; +ASPI-667 PO; -BACTROBAN OINTMENT TP ONE; -DECADRON IV ONE; -FENO150C PO; +FENO150C4 PO; +LACT1CAP34 PO; -LOSA100T14 PO; +LOSA100T15 PO; +MONT-45 PO; -MONT10TA6 PO; -NEURONTIN PO ONE; -NS 100ML 100 ML IV ONE; -OFIRMEV IV ONE; +OMEG-120 PO; +TOPI50TA35 PO; -ULTRAM PO ONE
[2023-06-22 13:05] LABS: ALBUMIN(ML) 3.5 g/dL (3.4-5.0); ANION GAP 13.6; BUN/CREATININE RATIO 15.17 (10.0-20.0); CALCIUM 9.4 mg/dL (8.4-10.5); CARBON DIOXIDE 24.2 mmol/L (20.0-32); CREATININE SERUM 1.45 mg/dL (0.59-1.40); EST GFR, NON-AA 35.2 (>/=60); POTASSIUM 3.8 mmol/L (3.6-5.2)
== END | disposition home or self-care (01) ==
LOC: RAD 12:11
PROVIDERS: ATTEND Internal Medicine Nephrology
DX: N17.9 Acute kidney failure, unspecified (principal)
CPT/HCPCS: 36415; 76770; 80069; 82043; 82570

== ENCOUNTER → 2024-10-09 | Outpatient (CLI) | payer MEDICARE, OTHER ==
[~2024-10-09] MED LIST changes: -ATOR80TA PO; +GABA-1222 PO; -GABA600T7 PO; +[UNRECOGNIZED DRUG - CODE] PO
== END | disposition home or self-care (01) ==
LOC: RAD 09:01
PROVIDERS: ATTEND Surgery
DX: K76.89 Other specified diseases of liver (principal); R11.2 Nausea with vomiting, unspecified
CPT/HCPCS: 76705

== ENCOUNTER → 2024-10-20 | Outpatient (CLI) | payer MEDICARE, OTHER ==
[~2024-10-20] MED LIST changes: +EMPA25TA PO
[2024-10-20 13:52] LABS: CREATININE SERUM 1.34 mg/dL (0.59-1.40); EST GFR, NON-AA 38.5 (>/=60)
== END | disposition home or self-care (01) ==
LOC: RAD 10:45
PROVIDERS: ATTEND Surgery
DX: R10.10 Upper abdominal pain, unspecified (principal); R11.2 Nausea with vomiting, unspecified; Z90.710 Acquired absence of both cervix and uterus; I70.0 Atherosclerosis of aorta
CPT/HCPCS: 74177; 36415; 82565; Q9965

== ENCOUNTER → 2024-10-24 | Day surgery (SDC) | payer MEDICARE, OTHER ==
[2024-10-20] MEDS: MOVIPREP POWDER PACKET PO STA (11:01)
[2024-10-20 11:19] VITALS: BP 115/77; PULSE 72; RESP 18; TEMP 97.9; O2SAT 95
[2024-10-20 13:10] LABS: INR 1.1; PROTHROMBIN PROTIME 11.6 SEC (9.3-11.6)
[~2024-10-24] VITALS: Ht 162.6 cm; Wt 86.4 kg
[2024-10-24] VITALS (7 sets, daily range): BP systolic 97–167; BP diastolic 57–68; PULSE 79–88; RESP 16; TEMP 97.1–98.8; O2SAT 94–98
[~2024-10-24] MED LIST changes: +DIPRIVAN IV ONE; +WATER ONE; +ZOFRAN ONE
[2024-10-24] MEDS: NS 1000ML 1,000 ML IV SCH (07:49)
== END | disposition home or self-care (01) ==
LOC: SDC 07:25
PROVIDERS: ATTEND Surgery
DX: R19.4 Change in bowel habit (principal); K29.90 Gastroduodenitis, unspecified, without bleeding; R63.4 Abnormal weight loss; K44.9 Diaphragmatic hernia without obstruction or gangrene; K57.30 Diverticulosis of large intestine without perforation or abscess without bleeding; K63.5 Polyp of colon; K29.50 Unspecified chronic gastritis without bleeding; D12.2 Benign neoplasm of ascending colon; D12.8 Benign neoplasm of rectum; E11.9 Type 2 diabetes mellitus without complications; K21.9 Gastro-esophageal reflux disease without esophagitis; J45.909 Unspecified asthma, uncomplicated; G47.30 Sleep apnea, unspecified; I10 Essential (primary) hypertension; Z90.710 Acquired absence of both cervix and uterus; Z88.5 Allergy status to narcotic agent; Z79.82 Long term (current) use of aspirin; Z68.33 Body mass index [BMI] 33.0-33.9, adult; Z98.890 Other specified postprocedural states; Z79.899 Other long term (current) drug therapy
CPT/HCPCS: 36415; 85610; 85730; 45380; 43239; 88305; 82948; A4217; J2704; J2405; 80053; 85025

== ENCOUNTER → 2024-10-30 | Outpatient (CLI) | payer MEDICARE, OTHER ==
[~2024-10-30] MED LIST changes: -DIPRIVAN IV ONE; -WATER ONE; -ZOFRAN ONE
[2024-10-30 14:57] LABS: HEMATOCRIT(ML) 40.7 % (36.0-46.0); HEMOGLOBIN 13.1 g/dL (12.0-15.0); MEAN CORP HGB 30.8 pg (26-34); MEAN CORP HGB CONCENTRATION 32.2 g/dL (33-36.5); MEAN CORP VOLUME 95.8 fL (78-100); RED BLOOD CELL 4.25 10^6/uL (4.00-5.20); RED CELL DISTRIBUTION WIDTH 13.1 % (11.5-14.5)
[2024-10-30 15:17] LABS: ALBUMIN(ML) 3.8 g/dL (3.4-5.0); ANION GAP 15.8; BUN/CREATININE RATIO 21.13 (10.0-20.0); CALCIUM 9.8 mg/dL (8.4-10.5); CARBON DIOXIDE 22.3 mmol/L (20.0-32); CREATININE SERUM 1.23 mg/dL (0.59-1.40); EST GFR, NON-AA 42.5 (>/=60); POTASSIUM 4.1 mmol/L (3.6-5.2)
== END | disposition home or self-care (01) ==
LOC: LAB 14:37
PROVIDERS: ATTEND Internal Medicine Nephrology
DX: I12.9 Hypertensive chronic kidney disease with stage 1 through stage 4 chronic kidney disease, or unspecified chronic kidney disease (principal); N18.32 Chronic kidney disease, stage 3b
CPT/HCPCS: 36415; 80069; 82043; 82570; 85027